=== PATIENT | female | born 1940 | race Caucasian/White ===

== ENCOUNTER 2022-10-04 14:11 | Outpatient (OUT) | payer MEDICARE, SELFPAY ==
--- NOTE | 2022-10-04 14:21 | MM_ITS ---
Patient: ANSLEY CAGE Exam Date: 10/04/2022 : 1940 Gender:F Ordering : DR ALE GEE Admission #: [id number] Family : Non-Staff Physician Order #: [id number] CLICK HERE TO VIEW EXAM RADIOLOGY REPORT PROCEDURE: MM TOMOSYNTHESIS SCREENING BI COMPARISON: MG MAMM SCREEN VEGA W CAD, 11/03/2020. MG MAMM SCREEN VEGA W CAD, 11/03/2019. MG MAMM SCREEN VEGA W CAD, 10/31/2018. MG MAMM VEGA SCRN W CAD DIG, 11/18/2012. INDICATIONS: Screening mammogram Z12.31 Calculator Name NCI Breast Cancer Risk Assessment Tool 5 Year Breast Cancer Risk 1.30% Lifetime Breast Cancer Risk 1.40% Personal Breast Cancer No Personal Ovarian Cancer No Treatments None Family Cancers Mother with ovarian cancer at age ~68. LOCATION: [facility] BREAST COMPOSITION: Scattered areas fibroglandular density. FINDINGS: DIAGNOSTIC CATEGORY 2--BENIGN FINDING: RIGHT BREAST: No significant suspicious finding. Scattered benign-appearing calcifications are present. No significant change has occurred. No significant change has occurred. No significant change has occurred. \No significant change has occurred. LEFT BREAST: No significant suspicious finding. No significant change has occurred. RECOMMENDATIONS: ROUTINE MAMMOGRAM AND CLINICAL EVALUATION IN 12 MONTHS. PLEASE NOTE: A NORMAL MAMMOGRAM DOES NOT EXCLUDE THE POSSIBILITY OF BREAST CANCER. A CLINICALLY SUSPICIOUS PALPABLE LUMP SHOULD BE BIOPSIED. Dictated by: Otoniel Thompson M.D. on 10/05/2022 at 12:04 Approved by: Otoniel Thompson M.D. on 10/05/2022 at 12:10
== END 2022-10-04 14:12 | disposition home or self-care (01) ==
LOC: MAMMO 14:15
PROVIDERS: Visit Provider Obstetrics & Gynecology
DX: Z12.31 Encounter for screening mammogram for malignant neoplasm of breast (principal); Z80.41 Family history of malignant neoplasm of ovary
CPT/HCPCS: 77063; 77067

== ENCOUNTER 2023-10-31 14:01 | Outpatient (OUT) | payer MEDICARE, SELFPAY ==
--- NOTE | 2023-10-31 14:04 | MM_ITS ---
Patient Name: ANSLEY CAGE MR#: [id number] : 1940 Exam Date: 10/31/2023 Ordering Doctor: DR ALE GEE RADIOLOGY REPORT PROCEDURE: MM SCREENING MAMMO BI COMPARISON: MM TOMOSYNTHESIS SCREENING BI, 10/04/2022. MG MAMM SCREEN VEGA W CAD, 11/03/2020. INDICATIONS: other screening mammogram Z12.31 Calculator Name NCI Breast Cancer Risk Assessment Tool 5 Year Breast Cancer Risk 1.10% Lifetime Breast Cancer Risk 1.10% Personal Breast Cancer No Personal Ovarian Cancer No Treatments None Family Cancers Mother with ovarian cancer at age ~68. LOCATION: [facility] BREAST COMPOSITION: There are scattered areas of fibroglandular density. FINDINGS: DIAGNOSTIC CATEGORY 2--BENIGN FINDING. NO CHANGE FROM COMPARISON. Scattered benign-appearing calcifications are present. Scattered benign-appearing lymph nodes are present. RIGHT BREAST: No significant suspicious finding. LEFT BREAST: No significant suspicious finding. RECOMMENDATIONS: ROUTINE MAMMOGRAM AND CLINICAL EVALUATION IN 12 MONTHS. PLEASE NOTE: A NORMAL MAMMOGRAM DOES NOT EXCLUDE THE POSSIBILITY OF BREAST CANCER. A CLINICALLY SUSPICIOUS PALPABLE LUMP SHOULD BE BIOPSIED. Dictated by: Urbano Joshi MD on 10/31/2023 at 14:41 Approved by: Urbano Joshi MD on 10/31/2023 at 14:43
== END 2023-10-31 14:02 | disposition home or self-care (01) ==
LOC: MAMMO 14:01
PROVIDERS: PCP Family Medicine; Visit Provider Obstetrics & Gynecology
DX: Z12.31 Encounter for screening mammogram for malignant neoplasm of breast (principal); Z80.41 Family history of malignant neoplasm of ovary
CPT/HCPCS: 77067

== ENCOUNTER 2024-11-03 11:20 | Outpatient (OUT) | payer MEDICARE, SELFPAY ==
--- OUTSIDE RECORDS SUMMARY | 2009-11-16 20:00 | XMS_ITS | Continuity of Care Document ---
Author Organization [facility] Address [address] [place] [address] Phone Care Team Providers Care Plumbing Installer Name Role Phone Tay Palumbo Unavailable Unavailable Procedures Procedure Date FLU VACC PRSV FREE INC ANTIG Admin influenza virus vac Advance Directives Directive Yes / No Effective Date File Name No Information Encounters Encounter Description Practice Location Reason(s) For Visit Diagnoses Date Provider Providers Copied on Encounter [facility], [address] [place], [place], [id number], tel:[phone] [facility] No Information [address], [place], [id number] , [place]. tel:[phone] Family History Family Member Type Diagnosis Age At Onset No Information Payers Payer name Insurance type Covered constitution party ID Authoriza tion(s) [employer] Medicare Advantage [id number] Social History Type Description Quantity Date Captured Comments Sex Female Smoking Status No Information Chief Complaint And Reason For Visit No Information Reason For Referral Reason For Referral No Information History Of Present Illness Encounter Date Complaint History Of Prese nt Illness No Information Functional Status Date Functional Assessmen t No Information Instructions Date Instruction Additional Infor mation No Information Assessments Type Assessment Date No Information Patient Care Teams Name Effective Dates (start - stop) Status Members No Information
--- OUTSIDE RECORDS SUMMARY | 2023-10-29 10:00 | XMS_ITS ---
Author Organization [facility] Address [address] [place] [address] Care Team Providers Care Obstetrical Tech Name Role Phone Dr. Jass Sainz Primary Care Provider [phone] Justine Adele Strange Unavailable [phone] REASON FOR VISIT fillings Encounters Encounter Location Date Provider Diagnosis [facility] [address] [place] [address] 10/29/2023 Adele Strange Plan Of Treatment Next Appt Details Provider Name:Marie Carey , 07/01/2025 01:00:00 PM, [address], [place], [address], Progress Notes * ANSLEY CAGEDOB:1940 ( 84 yo F)Acc No.[id number]:10/29/2023 Patient: ANSLEY ERVIN Provider: Marcela Strange :1940 A ge:83 Y S ex:Female Date:10/29/2023 Address:[address] [place], [place] [id number] Pcp:Dr. Jass Sainz Subjective: * Chief Complaints: * 1 . Fillings. * Medical History: Objective: * Vitals: Assessment: Plan: * Treatment: * Images: * Electronic signature of Adolph Strange DMD on 11/03/2024 at 11:24 AM EDT Sign off status: Pending * Provider: Marcela Strange Date: 0 10/29/2023 Generated for Jodi orlando/Alexander/Zuleymaitting on: 0 11/03/2024 11:24 AM EDT
--- OUTSIDE RECORDS SUMMARY | 2024-10-22 10:15 | XMS_ITS ---
Author Organization 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 Jass Sainz Primary Care Provider REASON FOR VISIT FILLING #30 Encounters Encounter Location Date Provider Diagnosis [facility] [address] [address] 10/22/2024 Jass Sainz Plan Of Treatment Next Appt Details Provider Name:Marie Carey , 07/01/2025 01:00:00 PM, [address], [place], [address], Progress Notes * NILESANSLEYDOB:1940 ( 84 yo F)Acc No.[id number]:10/22/2024 Patient: ANSLEY ERVIN Provider: Marcela Sainz DDS :1940 A ge:84 Y S ex:Female Date:10/22/2024 Address:[address] [place], [place] [id number] Subjective: * Chief Complaints: * 1 . FILLING #30. * Medical History: Objective: * Vitals: Assessment: Plan: * Treatment: * Images: * Electronic signature of Dr. Jass Sainz , DMD on 11/03/2024 at 11:24 AM EDT Sign off status: Pending * Provider: Marcela Sainz DDS Date: 0 10/22/2024 Generated for Jodi orlando/Alexander/Zuleymaitting on: 0 11/03/2024 11:24 AM EDT
--- OUTSIDE RECORDS SUMMARY | 2024-10-23 09:08 | XMS_ITS | Continuity of Care Document ---
Author Organization [facility] Address [address] [place] [address] Phone Care Team Providers Care Oscillograph Technician Name Role Phone Jerome Goldsmith DO Primary Care Provider Joseph Sharma MD Attending Provider Jerome Goldsmith DO Attending Provider [phone] Care Teams Patient Care Team Team Status: Active Member Role Status Dates Jerome Goldsmith DO Primary Care Provider Active Visit Care Team Team Status: Active Member Role Status Dates Jerome Goldsmith DO Primary Care Provider Active Sta rt: July 29, 2024 Joseph Sharma MD Attending Provider Active Sta rt: July 29, 2024 Visit Care Team Team Status: Inactive Member Role Status Dates Jerome Goldsmith DO Primary Care Provider Active Sta rt: July 29, 2024 End: July 29, 2024 Joseph Sharma MD Attending Provider Active Sta rt: July 29, 2024 End: July 29, 2024 Visit Care Team Team Status: Inactive Member Role Status Dates Jerome Goldsmith DO Primary Care Provider Active Sta rt: August 06, 2024 End: August 06, 2024 Joseph Sharma MD Attending Provider Active Sta rt: August 06, 2024 End: August 06, 2024 Visit Care Team Team Status: Active Member Role Status Dates Jerome Goldsmith DO Primary Care Provider Active Sta rt: August 26, 2024 Joseph Sharma MD Attending Provider Active Sta rt: August 26, 2024 Visit Care Team Team Status: Inactive Member Role Status Dates Jerome Goldsmith DO Primary Care Provider Active Sta rt: August 26, 2024 End: August 26, 2024 Joseph Sharma MD Attending Provider Active Sta rt: August 26, 2024 End: August 26, 2024 Visit Care Team Team Status: Inactive Member Role Status Kun Goldsmith DO Primary Care Provider Active Sta rt: September 03, 2024 End: September 03, 2024 Joseph Sharma MD Attending Provider Active Sta rt: September 03, 2024 End: September 03, 2024 Visit Care Team Team Status: Active Member Role Status Kun Goldsmith DO Primary Care Provider Active Sta rt: September 18, 2024 Joseph Sharma MD Attending Provider Active Sta rt: September 18, 2024 Visit Care Team Team Status: Inactive Member Role Status Kun Goldsmith DO Primary Care Provider Active Sta rt: September 18, 2024 End: September 18, 2024 Joseph Sharma MD Attending Provider Active Sta rt: September 18, 2024 End: September 18, 2024 Visit Care Team Team Status: Inactive Member Role Status Kun Goldsmith DO Primary Care Provider Active Sta rt: October 01, 2024 End: October 01, 2024 Joseph Sharma MD Attending Provider Active Sta rt: October 01, 2024 End: October 01, 2024 Visit Care Team Team Status: Inactive Member Role Status Kun Goldsmith DO Primary Care Provider Active Sta rt: October 06, 2024 End: October 06, 2024 Jerome Goldsmith DO Attending Provider Active Start: October 06, 2024 End: October 06, 2024 Visit Care Team Team Status: Inactive Member Role Status Kun Goldsmith DO Primary Care Provider Active Sta rt: October 09, 2024 End: October 09, 2024 Joseph Sharma MD Attending Provider Active Sta rt: October 09, 2024 End: October 09, 2024 Visit Care Team Team Status: Inactive Member Role Status Kun Goldsmith DO Primary Care Provider Active Sta rt: October 16, 2024 End: October 16, 2024 Joseph Sharma MD Attending Provider Active Sta rt: October 16, 2024 End: October 16, 2024 Visit Care Team Team Status: Inactive Member Role Status Kun Goldsmith DO Primary Care Provider Active Sta rt: October 20, 2024 End: October 20, 2024 Jerome Goldsmith DO Attending Provider Active Start: October 20, 2024 End: October 20, 2024 Patient Care Team Team Status: Inactive Member Role Status Dates Jerome Goldsmith DO Primary Care Provider Active Sta rt: October 23, 2024 End: October 23, 2024 Joseph Sharma MD Attending Provider Active Sta rt: October 23, 2024 End: October 23, 2024 Chief Complaint and Reason for Visit Chief Complaint Admit Date left L4-5 and L5-S1 transforaminal epidu ral July 29, 2024 1:02pm f/u after left L4,5 LTR August 06, 2024 1:20pm BILATERAL SACROILIAC JOINT INJ August 12:53pm FOLLOW UP AFTER VEGA SI September 03, 2024 1 :03pm VEGA LUMBAR FACET MBB L3,4,5 September 18, 2024 11:02am FOLLOW UP AFTER VEGA LUMBAR MBB October 012024 1:05pm e78.5 r73.9 October 06, 2024 8: 15am bilateral L3,4,5 lumbar MBB October 09, 2024 9:59am f/u after vega lumbar MBB October 16, 2024 4:08pm medicare wellness October 20, 2024 12:41pm Bilat lumbar facet RFA L3,L4,L5 Septembe r 2024 1:05pm Reason for Visit Admit Date Arthritis of lumbosacral spine July 1:20pm Lumbar radiculopathy August 06, 2024 1:2 0pm Other chronic pain August 06, 2024 1:20 pm Sacroiliitis August 06, 2024 1:20 pm Arthritis of lumbosacral spine August 1:03pm Lumbar radiculopathy September 03, 2024 1:0 3pm Other chronic pain September 03, 2024 1:03 pm Sacroiliitis September 03, 2024 1:03 pm Arthritis of lumbosacral spine October 012024 1:05pm Lumbar radiculopathy October 01, 2024 1 :05pm Other chronic pain October 01, 2024 1: 05pm Sacroiliitis October 01, 2024 1: 05pm Arthritis of lumbosacral spine October 16, 2024 4:08pm Lumbar radiculopathy October 16, 2024 4:08pm Other chronic pain October 16, 2024 4:08pm Sacroiliitis October 16, 2024 4:08pm HTN (hypertension) October 20, 2024 12:41pm Hyperglycemia October 20, 2024 12:41pm Hyperlipidemia October 20, 2024 12:41pm Medicare annual wellness visit, subseque nt October 20, 2024 12:41pm Post-menopausal October 20, 2024 12:41pm Screening mammogram for breast cancer Se pt2024 12:41pm Allergies, Adverse Reactions, Alerts Allergen Type Severity Reaction Last Updated Verified Status acetaminophen Allergy Unknown ITCHING October 20, 2024 1:15pm Yes Active amoxicillin Allergy Unknown diarrhea October 20, 2024 1:15pm Yes Active lisinopril Allergy Unknown Cough October 20, 2024 1:15pm Ye s Active Social History Smoking Status Status Start Date End Date Date of Observa tion Never smoked tobacco (finding) October 20, 2024 1:23pm Observation Status Observation Response Date of Response Legal Sex Female (finding) Sex Assigned At Female 1940 Family History Relationship Condition Age at Onset Recorded Date/T justina father Heart disease Unknown Unknown father Heart disease Unknown grandparent Unknown grandparent Unknown grandparent Unknown grandparent Unknown mother Unknown Malignant neoplasm Unknown mother Malignant neoplasm Unknown Problems Active Problems Medical Problem Onset Date Status Medicare annual wellness visit, subsequent Unkno wn Active Lumbar radiculopathy Unknown Active Screening mammogram for breast cancer Unknown Active Sacroiliitis Unknown Active Varicose vein of leg Unknown Active Wellness examination Unknown Active Hyperglycemia Unknown Active Hyperlipidemia Unknown Active Post-menopausal Unknown Active Other chronic pain Unknown Active Left lumbar radiculopathy Unknown Active Lumbar disc disease Unknown Active HTN (hypertension) Unknown Active Arthritis of lumbosacral spine Unknown A ctive Medications Medication Status Dose Units Route Directions Qty Days St art Date Stop Date End Date Instructions Adherence Levothyroxi ne 100 mcg tablet Discont inued 100 MCG PO Daily 90 Novemb er 2023 2:10pm July 01, 2024 11:13 am Ibuprofen 200 mg tablet Discont inued 200 MG PO Every 6 hours as needed for fever or pain 90 Decemb er 2023 12:57p m Decem nadeem 2023 6:03p m Ibuprofen 800 mg tablet Discont inued 800 MG PO Every 8 hours as needed for pain 90 Decemb er 2023 1:00am Janua ry 2024 2:50p m Ibuprofen 800 mg tablet Discont inued 800 MG PO Twice daily as needed for pain 90 Januar y 2024 2:48pm May 12, 2024 2:37p m rx verbally called into [facility] phone #[phone] Montelukast 10 mg tablet Discont inued 10 MG PO Daily at bedtime May 05, 2024 7:44am [facility] 2024 2:02p m Ibuprofen 800 mg tablet Discont inued 800 MG PO Twice daily as needed for pain May 12, 2024 2:36pm July 01, 2024 11:13 am rx verbally called into [facility] phone #[phone] Levothyroxi ne 100 mcg tablet Discont inued 100 MCG PO Daily July 01, 2024 11:11a m [facility] 2024 2:02p m Ibuprofen 800 mg tablet Discont inued 800 MG PO Twice daily as needed for pain July 01, 2024 11:11a m [facility] 2024 2:02p m Valsartan 80 mg tablet Discont inued MG June 22, 2022 12:00a m Aug[facility] t 2023 11:01 am Levothyroxi ne 100 mcg tablet Discont inued MCG June 22, 2022 12:00a m [facility] 2023 2:11p m Montelukast 10 mg tablet Discont inued MG June 22, 2022 12:00a m [facility] 2023 10:59 am Ibuprofen 600 mg tablet Discont inued MG June 22, 2022 12:00a m June 14, 2023 9:57a m Prednisone 20 mg tablet Discont inued 20 MG PO Twice daily 11 16June 22, 2022 12:00a m Aug[facility] t 2023 11:00 am Lidocaine 5 % adhesive patch,medic ated Discont inued 1 PATCH TOPICA L Daily as needed for pain June 22, 2022 12:00a m [facility] 2024 1:17p m leave on most painful area for up to 12 hrs Hydrocodone -Acetaminop hen 5-325 mg tablet Discont inued 1 TAB PO Q6H as needed for pain 10 June 22, 2022 June 14, 2023 9:57a m Cyclobenzap rine 5 mg tablet Discont inued 5 MG PO Three times daily as needed for muscle spasm June 22, 2022 12:00a m Aug[facility] t 2023 10:59 am Valsartan 80 mg tablet Discont inued 320 MG PO October 05, 2023 11:00a m [facility] 2024 1:18p m Triamcinolo ne Acetonide 0.1 % ointment Discont inued 1 APPLIC TOPICA L Twice daily September 14, 2023 12:00a m [facility] 2024 1:19p m FreeText[employer] application Externally Twice a day; Note: Source Status: Taking; Provider: Dr.Petti Pari BOYER Ibuprofen 800 mg tablet Discont inued 800 MG PO September 14, 2023 12:00a m Aug[facility] t 2023 11:00 am FreeTextSi tablet with food or milk as needed Orally Three times a day as needed; Note: Source Status: Taking; Refills: 3; Provider: Agus Sanchez Tramadol 50 mg tablet Discont inued 50 MG PO Four times daily September 14, 2023 12:00a m [facility] 2023 2:04p m FreeTextSi tablet as needed Orally Four times a day; Note: Source Status: Taking; Refills: 0; Qty: 120 Tablet; Provider: Agus Snachez Hydrochloro thiazide 25 mg tablet Active 25 MG PO Daily October 05, 2023 12:00a m Unknown Calcium Carbonate-V itamin D3 600 mg-62.5 mcg (2,500 unit) capsule Active CAP PO October 05, 2023 12:00a m Unknown Triamcinolo ne Acetonide 0.1 % ointment Active 1 APPLIC TOPICA L Twice daily as needed [facility] 2024 1:17pm FreeText[employer] application Externally Twice a day; Note: Source Status: Taking; Provider: Dr.Petti Pari BOYER Unknown Gabapentin 300 mg capsule Discont inued 300 MG PO Daily June 14, 2023 12:00a m Aug[facility] 2023 11:01 am Gabapentin 300 mg capsule Discont inued 300 MG PO Twice daily October 05, 2023 10:59a m [facility] 2024 1:19p m Gabapentin 300 mg capsule Active 300 MG PO Twice daily as needed 2024 1:16pm Unknown Ibuprofen 200 mg tablet Discont inued 200 MG PO Every 6 hours as needed 2023 12:00a m Dece 2023 1:03p m Montelukast 10 mg tablet Discont inued 10 MG PO Daily at bedtime 2023 10:59a m [facility] 20[facility] 11:00 am Montelukast 10 mg tablet Discont inued 10 MG PO Daily at bedtime 2023 11:00a m May 05, 2024 7:44a m Valsartan 320 mg tablet Active 320 MG PO Daily 2024 12:00a m Unknown Multivitami n (Multiple Vitamins) tablet Active 1 TAB PO Daily 2024 12:00a m Unknown Turmeric Root Extract 500 mg tablet Active 500 MG PO Daily 2024 12:00a m Unknown Cyanocobala min (Vitamin B-12) 1,000 mcg tablet Active 1000 MCG PO Daily 2024 12:00a m Unknown Ibuprofen 800 mg tablet Active 800 MG PO Twice daily as needed for pain 2024 2:00pm Unknown Levothyroxi ne 100 mcg tablet Active 100 MCG PO Daily 2024 2:00pm Unknown Montelukast 10 mg tablet Active 10 MG PO Daily at bedtime 2024 2:00pm Unknown Immunizations Immunization Event Date Not Given Reason Dose Number Liability Claims Manager Lot Number Vaccine Information Statement (VIS) Detail Administration Location COVID-19 mRNA-1273 (Moderna) March 19, 2020 COVID-19 mRNA-1273 (Moderna) April 16, 2020 COVID-19 mRNA-1273 (Moderna) December 25, 2020 COVID-19 (MODERNA) 12Y and older November 08, 2023 [facility] COVID-19 (PFIZER) 12Y and older November 16, 2022 COVID-19 (PFIZER) 12Y and older November 08, 2023 [id number] Fluzone TIV High-Dose 65YR+ November 08, 2015 Fluzone TIV High-Dose 65YR+ November 16, 2016 Fluzone TIV High-Dose 65YR+ November 09, 2017 Fluzone TIV High-Dose 65YR+ November 07, 2018 Fluzone QIV High-Dose 65YR+ November 05, 2019 Fluzone QIV High-Dose 65YR+ November 15, 2020 Influenza, trivalent November 08, 2023 [id number] Influenza vaccine, quadrivalent, adjuvanted November 23, 2021 Influenza vaccine, quadrivalent, adjuvanted November 16, 2022 Influenza vaccine, quadrivalent, adjuvanted November 08, 2023 [facility] Influenza, injectable, MDCK, pf November 23, 2017 influenza, unspecified formulation October 23, 2011 influenza, unspecified formulation November 08, 2015 influenza, unspecified formulation November 07, 2018 Pneumococcal Conjugate Vaccine, 13 valent November 19, 2014 Pneumococcal Polysacc. Vaccine, 23 valent November 20, 2015 RSV, bv, preFa and preFb, pf November 08, 2023 [id number] RSV, preF3, adj, pf November 08, 2023 [facility] Zoster Vaccine Recombinant, Adjuvanted October 16, 2017 Tetanus, Diphtheria, Pertussis (Tdap) July 02, 2024 Trivalent Influenza Vaccine November 16, 2016 Trivalent Influenza Vaccine November 09, 2017 Trivalent Influenza Vaccine November 05, 2019 Trivalent Influenza Vaccine November 23, 2021 Shingles (Zoster) October 16, 2017 Relevant Diagnostic Tests and/or Laboratory Data Laboratory Results Test Collection Date/Time Result Date/Time Result Interpretation Reference Range Result Comment Performing Site Corrected White Blood Count October 06, 2024 9:19am October 06, 2024 2:31pm 6.2 10*3/uL 3.8-11.6 [facility] [id number] [address] [place] [address] Uncorrect ed WBC Count October 06, 2024 9:19am October 06, 2024 2:31pm 6.2 10*3/uL 3.8-11.6 [facility] [id number] [address] [facility] [address] Red Blood Count October 06, 2024 9:19am October 06, 2024 2:31pm 3.67 10*6/uL 3.60-5.00 [facility] [id number] [address] [facility] [address] Hemoglobi n October 06, 2024 9:19am October 06, 2024 2:31pm 11.6 g/dL Below low normal 11.8-15.4 [facility] [id number] [address] [facility] [address] Hematocri t October 06, 2024 9:19am October 06, 2024 2:31pm 34.6 % 34.0-46.4 [facility] [id number] [address] [facility] [address] Mean Corpuscul ar Volume October 06, 2024 9:19am October 06, 2024 2:31pm 94.1 fL 80-100 [facility] [id number] [address] [facility] [address] Mean Corpuscul ar Hemoglobi n October 06, 2024 9:19am October 06, 2024 2:31pm 31.5 pg 24.7-34.3 [facility] [id number] [address] [facility] [address] Mean Corpuscul ar Hemoglobi n Concent October 06, 2024 9:19am October 06, 2024 2:31pm 33.5 g/dL 32.0-35.0 [facility] [id number] [address] [facility] [address] Red Cell Distribut ion Width October 06, 2024 9:19am October 06, 2024 2:31pm 14.1 % 11.9-15.3 [facility] [id number] [address] [facility] [address] Platelet Count October 06, 2024 9:19October 06, 2024 2:31pm 434 10*3/uL 150-450 [facility] [id number] [address] [facility] [address] Mean Platelet Volume October 06, 2024 9:19am October 06, 2024 2:31pm 7.6 fL 6.3-10.7 [facility] [id number] [address] [facility] [address] Neutrophi ls (%) (Auto) October 06, 2024 9:19am October 06, 2024 2:31pm 55.0 % . [facility] [id number] [address] [facility] [address] Lymphocyt es (%) (Auto) October 06, 2024 9:19am October 06, 2024 2:31pm 32.1 % . [facility] [id number] [address] [facility] [address] Monocytes (%) (Auto) October 06, 2024 9:19am October 06, 2024 2:31pm 8.5 % . [facility] [id number] [address] [place] [address]170 Eosinophi ls (%) (Auto) October 06, 2024 9:19am October 06, 2024 2:31pm 3.3 % . [facility] [id number] [address] [place] [address]170 Basophils (%) (Auto) October 06, 2024 9:19am October 06, 2024 2:31pm 1.1 % . [facility] [id number] [address] [place] 1946170 Nucleated RBC Relative Count (auto) October 06, 2024 9:19am October 06, 2024 2:31pm 0.1 /100{WB C} 0-0.5 [facility] [id number] [address] [place] [address]170 Neutrophi ls # (Auto) October 06, 2024 9:19am October 06, 2024 2:31pm 3.4 10*3/uL 1.8-7.7 [facility] [id number] [address] [place] 1946170 Lymphocyt es # (Auto) October 06, 2024 9:19am October 06, 2024 2:31pm 2.0 10*3/uL 1.00-4.8 [facility] [id number] [address] [place] [address]170 Monocytes # (Auto) October 06, 2024 9:19am October 06, 2024 2:31pm 0.5 10*3/uL 0.0-0.8 [facility] [id number] [address] [place] [address]170 Eosinophi ls # (Auto) October 06, 2024 9:19am October 06, 2024 2:31pm 0.2 10*3/uL 0.0-0.45 [facility] [id number] [address] [place] [address]170 Basophils # (Auto) October 06, 2024 9:19am October 06, 2024 2:31pm 0.1 10*3/uL 0.0-0.2 [facility] [id number] [address] [place], [place] [address] Glucose Level October 06, 2024 9:19am October 06, 2024 2:43pm 98 mg/dL 70-100 ADA recommended reference rangeRandom Glucose Reference Range is dependent on time and content of last meal. Glucose of more than 200 mg/dL in a nonstressed, ambulatory subject supports the diagnosis of Diabetes Mellitus. [facility] [id number] [address] [place] [address]170 Blood Urea Nitrogen October 06, 2024 9:19am October 06, 2024 2:43pm 16 mg/dL 09-05 [facility] [id number] [address] [place], [place] [address] Creatinin e October 06, 2024 9:19am October 06, 2024 2:43pm 0.73 mg/dL 0.60-1.20 [facility] [id number] [address] [place], [place] [address] Estimated GFR (CKD-EPI) October 06, 2024 9:19am October 06, 2024 2:43pm > 60.0 mL/Min [facility] [id number] [address] [place], [place] [address] Sodium Level October 06, 2024 9:19am October 06, 2024 2:43pm 139 mmol/L 136-145 [facility] [id number] [address] [place], [place] [address] Potassium Level October 06, 2024 9:19am October 06, 2024 2:43pm 4.0 mmol/L 3.5-5.1 [facility] [id number] [address] [place] [address] Chloride Level October 06, 2024 9:19am October 06, 2024 2:43pm 101 mmol/L 98-107 [facility] [id number] [address] [facility] [address] Carbon Dioxide Level October 06, 2024 9:19am October 06, 2024 2:43pm 30.9 mmol/L 21.0-31.0 [facility] [id number] [address] [facility] [address] Anion Gap October 06, 2024 9:19am October 06, 2024 2:43pm 11.1 mEq/L 6.0-15.0 [facility] [id number] [address] [facility] [address] Calcium Level October 06, 2024 9:19am October 06, 2024 2:43pm 8.9 mg/dL 8.6-10.3 [facility] [id number] [address] [facility] [address] Total Protein October 06, 2024 9:19am October 06, 2024 2:43pm 6.7 g/dL 6.4-8.9 [facility] [id number] [address] [facility] [address] Albumin October 06, 2024 9:19am October 06, 2024 2:43pm 4.0 g/dL 3.5-5.7 [facility] [id number] [address] [facility] [address] Globulin October 06, 2024 9:19am October 06, 2024 2:43pm 2.7 g/dL [facility] [id number] [address] [facility] [address] Albumin/G lobulin Ratio October 06, 2024 9:19am October 06, 2024 2:43pm 1.5 [facility] [id number] [address] [facility] [address] Total Bilirubin October 06, 2024 9:19am October 06, 2024 2:43pm 0.5 mg/dL 0.3-1.0 [facility] [id number] [address] [facility] [address] Aspartate Amino Transf (AST/SGOT ) October 06, 2024 9:19am October 06, 2024 2:43pm 14 U/L 13-39 [facility] [id number] [address] [facility] [address] Alanine Aminotran sferase (ALT/SGPT ) October 06, 2024 9:19am October 06, 2024 2:43pm 12 U/L 7-52 [facility] [id number] [address] [facility] [address] Alkaline Phosphata se October 06, 2024 9:19am October 06, 2024 2:43pm 67 U/L 34-104 [facility] [id number] [address] [facility] [address] Cholester ol Level October 06, 2024 9:19am October 06, 2024 2:43pm 214 mg/dL Above high normal 140-200 Chol less than 200 mg/dl low riskChol 201-239 mg/dl borderline riskChol 240 mg/dl and greater high risk [facility] [id number] [address] [facility] [address] HDL Cholester ol October 06, 2024 9:19am October 06, 2024 2:43pm 71 mg/dL 23-92 HDL CHOL ATP-III CLASSIFICATI ON Cardiovascul ar RiskHDL > or equal to 60 mg/dL LOWHDL < 40 mg/dL HIGH [facility] [id number] [address] [facility] [address] Triglycer ides Level October 06, 2024 9:19am October 06, 2024 2:43pm 105 mg/dL 0-149 TRIG ATP III CLASSIFICATI ONTRIG less than 150 mg/dL NormalTRIG 150-199 mg/dL Borderline highTRIG 200-500 mg/dL High TRIG greater than 500 mg/dL Very highStandard traceable to the Center for Disease Conrtrol and Prevention (CDC) test method. [facility] [id number] [address] [facility] [address] LDL Cholester ol, Calculate d October 06, 2024 9:19am October 06, 2024 2:43pm 122 mg/dL Above high normal 0-100 LDL ATP III CLASSIFICATI ONLDL less than 100 mg/dL OptimalLDL 100-129 mg/dL Near or above optimalLDL 130-159 mg/dL Borderline highLDL 160-189 mg/dL HighLDL greater than 189 mg/dL Very high [facility] [id number] [address] [facility] [address] VLDL Cholester ol October 06, 2024 9:19am October 06, 2024 2:43pm 21 mg/dL [facility] [id number] [address] [place], [place] [address] Cholester ol/HDL Ratio October 06, 2024 9:19am October 06, 2024 2:43pm 3.0 <5.0 [facility] [id number] [address] [place], [place] [address] Thyroid Stimulati ng Hormone 3rd Gen October 06, 2024 9:19am October 06, 2024 2:58pm 0.56 u[iU]/m L 0.45-5.33 [facility] [id number] [address] [place], [place] [address] Pharmacy Creatinin e Clearance (Chem October 06, 2024 9:19am October 06, 2024 2:43pm N/A [facility] [id number] [address] [place], [place] [address] Hemoglobi n A1c October 06, 2024 9:19am October 07, 2024 12:02pm 6.1 % Above high normal 4.3-5.6 Increased risk for diabetes: 5.7 - 6.4diabetes: >6.4glycemic control for adults with diabetes: <7.0 [facility] [id number] [address] [place] [address] Estimated Average Glucose October 06, 2024 9:19am October 07, 2024 12:02pm 128 mg/dL [facility] [id number] [address] [place], [place] [address] Vital Signs Vital Reading Result Reference Range Collection Date/Time Height 66 [in_i] August 06, 2024 1:27pm Heart Rate 78 /min 60-100 August 06, 2024 1:27pm Oxygen saturation by Pulse oximetry 97 % 95-100 August 06, 2024 1:27 pm BP Systolic 120 mm[Hg] 100-140 August 06, 2024 1:27pm BP Diastolic 76 mm[Hg] 60-100 August 06, 2024 1:27pm Heart Rate 77 /min 60-100 September 03, 2024 1:28pm Oxygen saturation by Pulse oximetry 97 % 95-100 September 03, 2024 1:28 pm BP Systolic 112 mm[Hg] 100-140 September 03, 2024 1:28pm BP Diastolic 70 mm[Hg] 60-100 September 03, 2024 1:28pm Heart Rate 69 /min 60-100 October 01 1:12pm Oxygen saturation by Pulse oximetry 97 % 95-100 October 01, 2024 1: 12pm BP Systolic 122 mm[Hg] 100-140 October 01 1:12pm BP Diastolic 80 mm[Hg] 60-100 October 01 1:12pm Heart Rate 76 /min 60-100 October 16, 2024 4:15pm Oxygen saturation by Pulse oximetry 98 % 95-100 October 16, 2024 4:15pm BP Systolic 148 mm[Hg] 100-140 October 16, 2024 4:15pm BP Diastolic 85 mm[Hg] 60-100 October 16, 2024 4:15pm Height 66 [in_i] October 20, 2024 1:33pm Weight 81.19 kg October 20, 2024 1:33pm Heart Rate 71 /min 60-100 October 20, 2024 1:33pm Respiratory rate 16 /min 12-24 October 202024 1:33pm Oxygen saturation by Pulse oximetry 98 % 95-100 October 20, 2024 1:33pm BP Systolic 90 mm[Hg] 100-140 October 20, 2024 1:33pm BP Diastolic 60 mm[Hg] 60-100 October 20, 2024 1:33pm BMI (Body Mass Index) 28.8 kg/m2 2024 1:33pm Advance Directives Advance Directive Response Recorded Date/ Time Advance Directives No October 9:23am Insurance Providers Guarantor Lorri Tyler Address [address] [place] [phone] Contact Info. Home Phone: Payer Policy Id Subscriber's Name Subscriber Id Effectiv e Date Expiration Date [employer] [facility] [id number] Lorri Tyler [id number] Encounters Encounter Location(s) Arrival/Admit Date Discharge/Depart Date Provider(s) Non-patient / Non-visit -[facility] July 29, 2024 1:00pm Joseph Sharma MD Departed Physician/Prov ider Office Visit -[facility] July 29, 2024 1:02pm July 29, 2024 2:57pm Joseph Sharma MD Departed Physician/Prov ider Office Visit -[facility] August 06, 2024 1:20pm August 06, 2024 1:53pm Joseph Sharma MD Non-patient / Non-visit -[facility] [place] August 26, 2024 12:30pm Joseph Sharma MD Departed Physician/Prov ider Office Visit -[facility] August 26, 2024 12:53pm August 26, 2024 3:33pm Joseph Sharma MD Departed Physician/Prov ider Office Visit -[facility] September 03, 2024 1:03pm September 03, 2024 1:59pm Joseph Sharma MD Non-patient / Non-visit -[facility] September 18, 2024 11:00am Joseph Sharma MD Departed Physician/Prov ider Office Visit -[facility] September 18, 2024 11:02am September 18, 2024 1:05pm Joseph Sharma MD Departed Physician/Prov ider Office Visit -[facility] October 01, 2024 1:05pm October 01, 2024 1:34pm Joseph Sharma MD Departed Clinical -[facility] [place] October 06, 2024 8:15am October 06, 2024 8:16am Laura Keyes DO Departed Physician/Prov ider Office Visit -[facility] October 09, 2024 9:59am October 09, 2024 10:01am Joseph Sharma MD Departed Physician/Prov ider Office Visit -[facility] October 16, 2024 4:08pm October 16, 2024 4:23pm Joseph Sharma MD Departed Physician/Prov ider Office Visit -[facility] October 20, 2024 12:41pm October 20, 2024 2:11pm Laura Keyes DO Departed Physician/Prov ider Office Visit -[facility] October 23, 2024 1:05pm October 23, 2024 1:07pm Joseph Sharma MD Recent Diagnosis Onset Date Admit Date Arthritis of lumbosacral spine Unknown J 2024 1:20pm Lumbar radiculopathy Unknown August 06, 2024 1:20pm Other chronic pain Unknown August 06 1:20pm Sacroiliitis Unknown August 06, 2024 1:20pm Arthritis of lumbosacral spine Unknown J amber 2024 1:03pm Lumbar radiculopathy Unknown September 03, 2024 1:03pm Other chronic pain Unknown September 03 1:03pm Sacroiliitis Unknown September 03, 2024 1:03pm Arthritis of lumbosacral spine Unknown A ug2024 1:05pm Lumbar radiculopathy Unknown September 1:05pm Other chronic pain Unknown October 01, 2024 1:05pm Sacroiliitis Unknown October 01 1:05pm Arthritis of lumbosacral spine Unknown S eptember 2024 4:08pm Lumbar radiculopathy Unknown October 162024 4:08pm Other chronic pain Unknown October 4:08pm Sacroiliitis Unknown October 16, 2 025 4:08pm HTN (hypertension) Unknown October 12:41pm Hyperglycemia Unknown October 20, 2 025 12:41pm Hyperlipidemia Unknown October 20, 2 025 12:41pm Medicare annual wellness visit, subsequent Unkno wn October 20, 2024 12:41pm Post-menopausal Unknown October 20, 2 025 12:41pm Screening mammogram for breast cancer Unknown October 20, 2024 12:41pm Assessments Diagnosis Onset Date Resolution Status Admit Date Arthritis of lumbosacral spine acute August 06, 2024 1:20pm Lumbar radiculopathy acute August 06, 2024 1:20pm Other chronic pain acute July 142024 1:20pm Sacroiliitis acute August 06, 2 025 1:20pm Arthritis of lumbosacral spine acute September 03, 2024 1:03pm Lumbar radiculopathy acute September 03, 2024 1:03pm Other chronic pain acute August 132024 1:03pm Sacroiliitis acute September 03, 2 025 1:03pm Arthritis of lumbosacral spine acute October 01, 2024 1:05pm Lumbar radiculopathy acute Aug2024 1:05pm Other chronic pain acute October 01, 2024 1:05pm Sacroiliitis acute October 01, 2024 1:05pm Arthritis of lumbosacral spine acute October 16, 2024 4:08pm Lumbar radiculopathy acute Oct ember 2024 4:08pm Other chronic pain acute 2024 4:08pm Sacroiliitis acute October 4:08pm HTN (hypertension) acute 2024 12:41pm Hyperglycemia acute October 202024 12:41pm Hyperlipidemia acute October 20, 2024 12:41pm Medicare annual wellness vis it, subsequent acute October 20 025 12:41pm Post-menopausal acute October 20, 2024 12:41pm Screening mammogram for melvi st cancer acute October 20 025 12:41pm Plan of Treatment Author Kathrine Menjivar [facility] Authored August 06, 2024 1:53 pm If her low back pain persist s, we can consider proceeding with a lumbar facet MBB followed by a RFA if applicable under fluoroscopic guidance. 84 year old female here for follow up status post left L4-5 and L5-S1 transforaminal epidural steroid injection under fluoroscopic guidance. Patient reports 50% pain relief as well as improved walking, standing and daily functions following the procedure. She continues to complain of residual low back and tailbone pain with intermittent radiation down the left lower extremity. Clinically, her residual low back pain is consistent with sacroiliitis and lumbar spondylosis. Anatomy of spine discussed in detail with patient in regards to patients condition. Patient is a candidate for a bilateral sacroiliac joint injection under fluoroscopic guidance. Risks and benefits of procedure explained to patient; patient verbalizes understanding. Patient reports 50% pain relief to the left lower extremity following procedure Continue with current treatment plan Author Natali Borges [facility] Authored September 03, 2024 1:48 pm Patient reports 70-80% pain relief to the area treated as well as improved walking, standing and daily functions following the procedure. 84 year old female here for follow up status post bilateral sacroiliac joint injection under fluoroscopic guidance. Patient reports 70-80% pain relief to the area treated as well as improved walking, standing and daily functions following the procedure. She continues to complain of residual low back pain. She also complains of intermittent radiation down the left lower extremity to the ankle. She denies any procedure related complications. Anatomy of spine as well as other treatment options were discussed in detail with the patient in regards to patients condition. I recommend we proceed with a bilateral lumbar facet medial branch nerve block under fluoroscopic guidance. Risks and benefits of procedure explained to patient; patient verbalizes understanding. Stable. She feels leg pain is infrequent. Follow up after procedure. Author Laura Saldañaalex [facility] Authored October 20, 2024 2:15pm Personalized health advice w as given to the beneficiary to health education of preventative counseling services or programs aimed at reducing identified risk factors and improving self-management or community-based lifestyle interventions to reduce health risks and promote self-management and wellness, including physical activity and nutrition. A written plan for screenings was discussed, flu vaccination, routine lab studies, eye exams, as well as risk factors for other medical problems. All preventative health recommendations to include immunizations have been reviewed. She is following with pain management, web ui developer and eye doctor routinely. I have recommended vascular screening through [facility] Community Outreach program and information has been provided if she is interested. Annual skin assessment is recommended. She has declined further bone density testing. She is following with Dr. Salinas, MATERIAL EXPEDITER, and did have pelvic exam 09/2024 and is scheduled for mammogram at [facility]. Due to age no longer needs any further colorectal cancer screening. Encouraged to alert me if has any changes in her stool or notices any blood in stool. Encouraged to maintain a healthy weight and remain active. Vital signs are stable. Wellness lab reviewed in great detail. A1C is stable at 6.1 and renal function is good. Encouraged to continue with dietary modification and remain as active a possible. Maintain a healthy weight. I will continue to monitor lab as I have been Current lab results have been reviewed in great detail and her lipid levels have improved from last year. She is controlling her levels primarily with dietary modification and exercise. Blood chemistries are stable to include liver enzymes, electrolytes and blood counts are also stable. I have encouraged her to continue with the dietary modification and continue to be active. I will monitor lab as I have been. Blood pressure is good in office today. She does follow with a web ui developer in [place] and will be leaving for [place] in the next 6-8 weeks pending the outcome of the lumbar spine ablation that is being planned by Dr. Sharma for this coming week. Denies chest pain, increased SOB or excessive edema. Take medications as prescribed. Thyroid levels are within normal limits and no changes warranted with the current medication doses. Monthly SBE encouraged and report abnormal findings. She is following with Dr. Salinas, MATERIAL EXPEDITER, and does have a mammogram ordered by him. She will have this done in the next couple of months. Last bone density testing was done in 2020 and at that time it did reveal 2 areas of osteopenia. She is declining any further screenings. Encouraged to take the calcium with vitamin D as ordered. Remain active and take caution with ambulation. She does use a cane for assistance with her mobility and balance. I did provide her a note to be given to the [employer] [place] to have her mailbox moved closer to her residence due to her impaired mobility. Copy has been scanned into her EMR Author Natali [facility] Authored October 01, 2024 1: 26pm 84 year old female here for follow up status post lumbar facet medial branch nerve block bilaterally at the L3 and L4 levels, as well as L5 dorsal ramus under fluoroscopic guidance. Patient reports 70-80% pain relief as well as improved walking, standing and daily functions for 5-6 hours following the procedure. She voices continued complaints of low back pain today as expected. She feels her pain is worse in the morning when getting out of bed. Anatomy of spine as well as other treatment options were discussed in detail with the patient in regards to patients condition. Patient is a candidate to proceed with a confirmatory bilateral lumbar facet medial branch nerve block under fluoroscopic guidance. Risks and benefits of procedure explained to patient; patient verbalizes understanding. Patient reports 70-80% pain relief to the area treated as well as improved walking, standing and daily functions following the procedure. Stable. She feels leg pain is infrequent. Follow up after procedure. Author Kathrine Menjivar [facility] Authored October 16, 2024 4:21pm 84 y/o female here for follo w up status post lumbar facet medial branch nerve block bilaterally at the L3, L4, and L5 level under fluoroscopic guidance. Patient reports 90-100% overall pain relief as well as increased function in standing, walking and daily activities for 5-6 hours following the procedure. She voices complaints of low back pain today, as expected. Anatomy of spine discussed in detail with patient in regards to patients condition. Patient is a candidate for a bilateral lumbar facet RFA under fluoroscopic guidance. Risks and benefits of procedure explained to patient; patient verbalizes understanding. Stable. Patient denies radicular pain today Stable. Patient feels sacral pain is minimal today Continue with current treatment plan Future Tests Future scheduled test information is unavailable Pending Tests Test Name Ordered Date Scheduled Date Comprehensive Metabolic Panel October 20 2:10pm 1 Years Future Visits Future appointment information is unavailable Referrals to Other Providers Referral information is unavailable Future Procedures Procedure Name Ordered Date Scheduled Date A1C with Estimated Average Glu October 20 2:10pm 1 Years Complete Blood Count Auto Diff October 20 2:10pm 1 Years Lipid Panel October 20, 2024 2:10pm 1 Yea rs MicroAlb Creat Ratio,U October 20, 2024 2:10p m 1 Years Thyroid Stimulating Hormone October 20, 2024 2:10pm 1 Years Future Medications Future medication information is unavailable Patient Instructions Patient instructions are unavailable
--- OUTSIDE RECORDS SUMMARY | 2024-11-03 11:24 | XMS_ITS | Patient Health Record ---
Author Organization [facility] Address [address] [place] [address] Care Team Providers Care Film Numberer Name Role Phone Dr. Jass Sainz Primary Care Provider Marie Carey Unavailable [phone] Adele Strange Unavailable [phone] Reason For Referral No Information Encounters Encounter Location Date Provider Diagnosis [facility] [address] [place] [address] 07/02/2024 Marie Carey Acute gingivitis, plaque induced K05.00 ; Dental caries on pit and fissure surface penetrating into dentin K02.52 ; Other dental procedure status Z98.818 and Encounter for dental examination and cleaning with abnormal findings Z01.21 [facility] [address] [place] [address] 07/08/2024 Adele Strange Encounter for dental examination and cleaning with abnormal findings Z01.21 and Dental caries on pit and fissure surface penetrating into dentin K02.52 [facility] [address] [place] [address] 11/13/2023 Jass Sainz Dental caries on pit and fissure surface penetrating into dentin K02.52 and Encounter for dental examination and cleaning with abnormal findings Z01.21 Assessments Encounter Date Diagnosis (ICD Code) Assessment Notes Treatment Notes Treatment Clinical Notes Section Notes 11/13/2023 Dental caries on pit and fissure surface penetrating into dentin (ICD-10 - K02.52) 07/02/2024 Acute gingivitis, plaque induced (ICD-10 - K05.00) 07/08/2024 Encounter for dental examination and cleaning with abnormal findings (ICD-10 - Z01.21) 07/08/2024 Dental caries on pit and fissure surface penetrating into dentin (ICD-10 - K02.52) 11/13/2023 Encounter for dental examination and cleaning with abnormal findings (ICD-10 - Z01.21) 07/02/2024 Dental caries on pit and fissure surface penetrating into dentin (ICD-10 - K02.52) 07/02/2024 Other dental procedure status (ICD-10 - Z98.818) 07/02/2024 Encounter for dental examination and cleaning with abnormal findings (ICD-10 - Z01.21) Plan Of Treatment Next Appt Details Provider Name:Marie Carey , 07/01/2025 01:00:00 PM, [address], [place], [address],
--- OUTSIDE RECORDS SUMMARY | 2024-11-03 11:24 | XMS_ITS | Clinical Summary ---
Author Organization [facility] Address [address] [place], [place] [id number] Care Team Providers Care Acetylene Torch Solderer Name Role Phone Unavailable Primary Care Provider Unavailabl e Allergies Active Allergy Reactions Criticality Noted Date Comments Lisinopril Cough 11/03/2013 Seasonal Allergies Other: See Comments 11/04/19 14 Medications Hydrochlorothiaz juliana 12.5 mg capsule 09/24/2013 Active levothyroxine (SYNTHROID) 175 mcg tablet 08/19/2013 Active montelukast (SINGULAIR) 10 mg tablet 10/16/2013 Active oxybutynin (DITROPAN) 5 mg tablet 09/24/2013 Active valsartan (DIOVAN) 160 mg tablet 09/24/2013 Active ACETAMINOPHEN (TYLENOL EXTRA STRENGTH ORAL) Take by mouth twice daily. Active multivitamin tablet Take 1 tablet by mouth once daily. Active Active Problems Problem Noted Date Diagnosed Date Neutropenia 11/03/2013 Social History Tobacco Use Types Packs/Day Years Used Date Smoking Tobacco: Never Alcohol Use Standard Drinks/Week Comments Not Asked 0 (1 standard drink = 0.6 oz pur e alcohol) Comments Unknown Sex and Gender Information Value Date Recorded Sex Assigned at Not on file Legal Sex Female 1:53 PM EDT Gender Identity Not on file Sexual Orientation Not on file Last Filed Vital Signs Vital Sign Reading Time Taken Comments Blood Pressure 120/67 06/22/2014 2:42 PM EDT Pulse 78 06/22/2014 2:42 PM EDT Temperature 36.7 C (98.1 F) 06/22/2014 2:42 PM EDT Respiratory Rate - - Oxygen Saturation - - Inhaled Oxygen Concentration - - Weight 91 kg (200 lb 9.6 oz) 06/22/2014 2:42 PM EDT Height 165.1 cm (5' 5 ) 06/22/2014 2:42 PM EDT Body Mass Index 33.38 06/22/2014 2:42 PM EDT Plan of Treatment Health Maintenance Due Date Last Done Comments Anxiety Screening 1958 Depression Screening 1958 DTaP,Tdap,Td Vaccine (1 - Tdap) 1957 Pneumococcal Vaccine: 50+ (1 of 1 - PCV) 1988 Shingrix Vaccine (1 of 2) 1988 Bone Density Screening 07/23/2003 RSV Vaccine (1 - 1-dose 75+ series) 2013 Diabetes Screening 11/03/2016 11/03/2013 Advance Directive Discussion 02/13/2024 Influenza Vaccine (#1) 2024 Procedures Procedure Name Priority Date/Time Associated Diagnosis Comments COMPREHENSIVE METABOLIC PANEL Routine 11/03/2013 4:11 PM EDT Neutropenia (HCC) from Last 3 Months or Most Recently Relevant to Health Maintenance Results * COMP METABOLIC PANEL (11/03/2013 4:11 PM EDT) Protein, Total 7.0 6.0 - 8.4 g/dL [facility] Albumin 4.1 3.5 - 5.0 g/dL [facility] Calcium 9.5 8.5 - 10.5 mg/dL [facility] Bilirubin, Total 0.2 0.0 - 1.5 mg/dL [facility] Alkaline Phosphatase 61 40 - 150 U/L [facility] AST 16 7 - 40 U/L [facility] Glucose 98 65 - 100 mg/dL [facility] BUN 19 8 - 25 mg/dL [facility] Creatinine 0.80 0.70 - 1.40 mg/dL [facility] Sodium 139 132 - 148 mmol/L [facility] Potassium 3.6 3.5 - 5.0 mmol/L [facility] Chloride 102 98 - 110 mmol/L [facility] CO2 28 23 - 32 mmol/L [facility] Anion Gap 9 0 - 15 mmol/L [facility] ALT 13 0 - 45 U/L [facility] eGFR- >60 [facility] eGFR-All Other Races >60 . [facility] Comment: eGFR (Estimated GFR) Units of measure: mL/min/1.73 meters squared eGFR is derived from the reexpressed MDRD Study equation using the following parameters: serum creatinine, age, gender and race. The creatinine assay has been calibrated to be traceable to IDMS. An eGFR <60 mL/min/1.73m2 for >3 months is consistent with chronic kidney disease. Refer to KDOQI guidelines for clinical interpretation. Blood specimen (specimen) BLOOD SPECIMEN / Unknown 11/03/2013 4:11 PM EDT 11/03/2013 4:16 PM EDT us Kareem Lincoln DO LABORATORY Final Res ult [facility] [address] [place] [address] from Last 3 Months or Most Recently Relevant to Health Maintenance Insurance [employer] MEDICARE
--- OUTSIDE RECORDS SUMMARY | 2024-11-03 11:25 | XMS_ITS | Encounter Summary ---
Author Organization [facility] Address [address] [facility] [place] [address] Care Team Providers Care Bundling Machine Operator Name Role Phone Jerome Goldsmith DO Primary Care Provider Encounter Details Date Type Department Care Team ([facility] Contact Info) Description 09/28/2022 Abstract ALBA Benson [facility] [address] [facility] [address] [place] [address] Sabas Salinas MD [address] [facility] [address] [place] [address] Social History Tobacco Use Types Packs/Day Years Used Date Smoking Tobacco: Never Smokeless Tobacco: Never Alcohol Use Standard Drinks/Week Comments Yes 2 (1 standard drink = 0.6 oz pur e alcohol) Comments No Sex and Gender Information Value Date Recorded Sex Assigned at Not on file Legal Sex Female 6:46 PM EDT Gender Identity Not on file Sexual Orientation Not on file documented as of this encounter Plan of Treatment Upcoming Encounters Date Type Department Care Team ([facility] Contact Info) Description 09/30/2026 11:15 AM EDT Office Visit ALBA Benson [facility] [address] [facility] [address] [place] [address] Sabas Salinas MD [address] [facility] [address] [place] [address] documented as of this encounter Visit Diagnoses Not on filedocumented in this encounter Care Teams Bundling Machine Operator Relationship Specialty Start Date End Date Jerome Goldsmith DO PCP - General 09/28/22 documented as of this encounter
--- OUTSIDE RECORDS SUMMARY | 2024-11-03 11:25 | XMS_ITS | Encounter Summary ---
Author Organization [facility] Address [address] [place] [address] Care Team Providers Care Xray Tech Name Role Phone Jerome Goldsmith Primary Care Provider [phone] Encounter Details Date Type Department Care Team (Late Contact Info) Description 10/31/2023 Clinisync Result Encounter [facility] External Department Unsolicited Ale Gee MD [address] [facility] [address] [place] [address] Social History Tobacco Use Types Packs/Day Years [...] Upcoming Encounters Date Type Department Care Team (Late Contact Info) Description 09/30/2026 11:15 AM EDT Office Visit ALBA EASON [address] [facility] [address] [place] [address] Ale Gee MD [address] [facility] [address] [place] [address] documented as of this encounter Procedures Procedure Name Priority Date/Time Associated Diagnosis Comments BI MAMMOGRAM SCREENING BILATERAL 10/31/2023 2:43 PM EDT documented in this encounter Results * Bilateral screening mammogram (10/31/2023 2:43 PM EDT) Anatomical Region Laterality Modality Breast Bilateral Mammography 10/31/2023 2:43 PM EDT Narrative 10/31/2023 2:44 PM EDT The [address] [address] Mammography Report Signed Patient: LORRI TYLER MR#: [id number] : 1940 Acct:[id number] Age/Sex: 83 / F ADM Date: 10/31/23 Loc: MAMMO Attending Dr: ALE GEE Ordering Physician: ALE GEE Results: Date of Service: 10/31/23 Follow Up: Procedure(s): MM screening mammo BI Accession Number(s): [id number] cc: Jerome Goldsmith D.O.; ALE GEE Patient Name: LORRI TYLER MR#: [id number] : 1940 Exam Date: 10/31/2023 Ordering Doctor: DR ALE GEE RADIOLOGY REPORT PROCEDURE: MM SCREENING MAMMO BI COMPARISON: MM TOMOSYNTHESIS SCREENING BI, 10/04/2022. MG MAMM SCREEN VEGA W CAD, 11/03/2020. INDICATIONS: other screening mammogram Z12.31 Calculator Name NCI Breast Cancer Risk Assessment Tool 5 Year Breast Cancer Risk 1.10% Lifetime Breast Cancer Risk 1.10% Personal Breast Cancer No Personal Ovarian Cancer No Treatments None Family Cancers Mother with ovarian cancer at age 68. LOCATION: [facility] BREAST COMPOSITION: There are scattered areas of fibroglandular density. FINDINGS: DIAGNOSTIC CATEGORY 2--BENIGN FINDING. NO CHANGE FROM COMPARISON. Scattered benign-appearing calcifications are present. Scattered benign-appearing lymph nodes are present. RIGHT BREAST: No significant suspicious finding. LEFT BREAST: No significant suspicious finding. RECOMMENDATIONS: ROUTINE MAMMOGRAM AND CLINICAL EVALUATION IN 12 MONTHS. PLEASE NOTE: A NORMAL MAMMOGRAM DOES NOT EXCLUDE THE POSSIBILITY OF BREAST CANCER. A CLINICALLY SUSPICIOUS PALPABLE LUMP SHOULD BE BIOPSIED. Dictated by: Urbano Joshi MD on 10/31/2023 at 14:41 Approved by: Urbano Joshi MD on 10/31/2023 at 14:43 Dictated By: Urbano Joshi M.D. Signed By: 10/31/23 1444 DD/ 1443 TD/TT: Collective Bargaining Specialist: Procedure Note Radiology, Radiologist, MD - 10/31/[address] [address] Mammography Report Signed Patient: LORRI TYLER JMR#: [id number] : 9Acct:[id number] Age/Sex: 83 / FADM Date: 10/31/23 Loc: MAMMO Attending Dr: ALE GEE Ordering Physician: ALE GEEResults: Date of Service: 10/31/23Follow Up: Procedure(s): MM screening mammo BI Accession Number(s): [id number] cc: Jerome Goldsmith D.O.; ALE GEE Patient Name: LORRI TYLER MR#: [id number] : 1940 Exam Date: 10/31/2023 Ordering Doctor: DR ALE GEE RADIOLOGY REPORT PROCEDURE: MM SCREENING MAMMO BI COMPARISON: MM TOMOSYNTHESIS SCREENING BI, 10/04/2022. MG MAMM SCREENBIL W CAD, 11/03/2020. INDICATIONS: other screening mammogram Z12.31 Calculator Name NCI Breast Cancer Risk Assessment Tool 5 Year Breast Cancer Risk 1.10% Lifetime Breast Cancer Risk 1.10% Personal Breast Cancer No Personal Ovarian Cancer No Treatments None Family Cancers Mother with ovarian cancer at age 68. LOCATION: [facility] BREAST COMPOSITION: There are scattered areas of fibroglandulardensity. FINDINGS: DIAGNOSTIC CATEGORY 2--BENIGN FINDING. NO CHANGE FROM COMPARISON.Scattered benign-appearing calcifications are present. Scattered benign-appearinglymph nodes are present. RIGHT BREAST: No significant suspicious finding. LEFT BREAST: No significant suspicious finding. RECOMMENDATIONS: ROUTINE MAMMOGRAM AND CLINICAL EVALUATION IN 12 MONTHS. PLEASE NOTE: A NORMAL MAMMOGRAM DOES NOT EXCLUDE THE POSSIBILITY OFBREAST CANCER. A CLINICALLY SUSPICIOUS PALPABLE LUMP SHOULD BE BIOPSIED. Dictated by: Urbano Joshi MD on 10/31/2023 at 14:41 Approved by: Urbano Joshi MD on 10/31/2023 at 14:43 Dictated By: Urbano Joshi M.D. Signed By:10/31/23 1444 DD/ 1443 TD/TT: Collective Bargaining Specialist: us Ale Gee MD IMG BI PROCEDURES Final Result documented in this encounter Visit Diagnoses Not on filedocumented in this encounter Care Teams Xray Tech Relationship Specialty Start Date End Date Jerome Goldsmith DO PCP - General 09/28/22 documented as of this encounter
--- OUTSIDE RECORDS SUMMARY | 2024-11-03 11:25 | XMS_ITS | Encounter Summary ---
Author Organization [facility] Address [address] [facility] [place] [address] Care Team Providers Care Pipeline Construction Inspector Name Role Phone Jerome Goldsmith Primary Care Provider [phone] Encounter Details Date Type Department Care Team ([facility] Contact Info) Description 10/05/2022 Orders Only MOSSE[facility]ie [place] EASON [address] [facility] [address] [place] [address] Sabas Salinas MD [address] [facility] [address] [place] [address] Social History Tobacco Use Types Packs/Day Years [...] Description 09/30/2026 11:15 AM EDT Office Visit MOSESEvie [place] EASON [address] [facility] [address] [place] [address] Sabas Salinas MD [address] [facility] [address] [place] [address] documented as of this encounter Procedures Procedure Name Priority Date/Time Associated Diagnosis Comments MAMMOGRAM-DIAGNOSTIC* Routine 10/04/2022 2:25 PM EDT documented in this encounter Results * MAMMOGRAM-DIAGNOSTIC* (10/04/2022 2:25 PM EDT) Anatomical Region Laterality Modality Radiographic Angelica ging us Sabas Salinas MD IMG XR PROCEDURES Final Result documented in this encounter Visit Diagnoses Not on filedocumented in this encounter Care Teams Pipeline Construction Inspector Relationship Specialty Start Date End Date Jerome Goldsmith DO PCP - General 09/28/22 documented as of this encounter
--- OUTSIDE RECORDS SUMMARY | 2024-11-03 11:25 | XMS_ITS | Clinical Summary ---
Author Organization [facility] Address [address] [facility] [address] [place] [address] Care Team Providers Care Special Assets Officer Name Role Phone Jerome Goldsmith DO Primary Care Provider [phone] Allergies Active Allergy Reactions Criticality Noted Date Comments Lisinopril Other 09/26/2022 Medications triamcinolone (Kenalog) 0.1 % ointment Apply to affected areas, avoid skin folds topically BID prn for 30 days 3 Active mirabegron ER (Myrbetriq) 50 MG 24 hr tablet 1 (one) time each day at the same time. Active Acetaminophen (TYLENOL 8 HOUR PO) Tylenol Active ASPIRIN 81 PO Aspir-81 Active IBUPROFEN PO Ibuprofen Active levothyroxine (Synthroid, Levoxyl) 100 MCG tablet TAKE 1 TABLET BY MOUTH EVERY DAY IN THE MORNING ON EMPTY STOMACH FOR 90 DAYS 3 Active TURMERIC PO Take by mouth. Act selene Multiple Vitamin (multivitamin) capsule Take 1 capsule by mouth in the morning. Active Calcium Carb-Cholecalci ferol (CALCIUM/VITAMI N D PO) Take by mouth. Activ e montelukast (Singulair) 10 MG tablet Take by mouth. Activ e valsartan (Diovan) 320 MG tablet Take 320 mg by mouth Daily 5 Active Encounters Date Type Department Care Team Description 09/29/2024 10:30 AM EDT Office Visit [facility] [address] [place] [phone] Sabas Salinas MD Well woman exam with routine gynecological exam (Primary Dx); Cervical cancer screening; Other screening mammogram 09/29/2024 Bamboo flowsheet [facility] [address] [facility] [address] [place] [address] Sabas Salinas MD 09/29/2024 Travel from Last 3 Months Family History Medical History Relation Name Comments Heart disease Father Relation Name Status Comments Father Social History Tobacco Use Types Packs/Day Years Used Date Smoking Tobacco: Never Smokeless Tobacco: Never Tobacco Cessation:Counseling Given: Not Answered Alcohol Use Standard Drinks/Week Comments Yes 2 (1 standard drink = 0.6 oz pur e alcohol) Comments No Sex and Gender Information Value Date Recorded Sex Assigned at Not on file Legal Sex Female 6:46 PM EDT Gender Identity Not on file Sexual Orientation Not on file Last Filed Vital Signs Vital Sign Reading Time Taken Comments Blood Pressure 140/82 09/29/2024 10:11 AM EDT Pulse - - Temperature - - Respiratory Rate - - Oxygen Saturation - - Inhaled Oxygen Concentration - - Weight 79.4 kg (175 lb) 09/29/2024 10:11 AM EDT Height 163.8 cm (5' 4.5 ) 10/24/2021 12:00 PM ED T Body Mass Index 29.57 10/24/2021 12:00 PM EDT Plan of Treatment Upcoming Encounters Date Type Department Care Team (Late st Contact Info) Description 09/30/2026 11:15 AM EDT Office Visit [facility] [address] [facility] [address] [place] [address] Sabas Salinas MD [address] [facility] [address] [place] [address] Health Maintenance Due Date Last Done Comments Influenza Vaccine (#1) 2024 4, 11/16/2022, 11/11/2022, Additional history exists Pneumococcal Vaccine: 65+ Years Completed 6, 11/19/2014 Procedures Procedure Name Priority Date/Time Associated Diagnosis Comments IGP,RFX APTIMA HPV ALL PTH Routine 09/29/2024 12:00 AM EDT Cervical cancer screening from Last 3 Months Results * IGP,rfx Aptima HPV all pth (09/29/2024 12:00 AM EDT) Diagnosis: Comment [facility] Comment: NEGATIVE FOR INTRAEPITHELIAL LESION OR MALIGNANCY. CELLULAR CHANGES ASSOCIATED WITH ATROPHY ARE PRESENT. Specimen Adequacy: Comment [facility] Comment: Satisfactory for evaluation. Endocervical component may not be distinguished in cases of atrophy. Clinician Provided ICD10: Comment [facility] Comment:Z12.4 Performed By: Comment [facility] Comment:Tanika Gray ytologist (ASCP) Cyto Comments . [facility] Note: Comment [facility] Comment: The Pap smear is a screening test designed to aid in the detection of premalignant and malignant conditions of the uterine cervix. It is not a diagnostic procedure and should not be used as the sole means of detecting cervical cancer. Both false-positive and false-negative reports do occur. Test Methodology: Comment [facility] Comment: This liquid based ThinPrep(R) pap test was screened with the use of an image guided system. . Comment [facility] Comment: The HPV DNA reflex criteria were not met with this specimen result therefore, no HPV testing was performed. Swab Cervical swab / Unknown 09/29/2024 09/30/2024 Comment:Cervical Swab Print r Narrative [facility] - 10/01/2024 3:07 PM EDT Performed at: [facility] [id number] Utility Bag Assembler: Toña Mckeon MD, Phone: [phone] Specimen Comment: [id number] Specimen Comment: Source.............Cervix Specimen Comment: No. of containers..01 ThinPrep Vial us Sabas Salinas MD LAB CYTOLOGY ORDERABLES Final Result [facility] from Last 3 Months Insurance [employer] MED[employer]ARE [employer]VANTAGE Care Teams Special Assets Officer Relationship Specialty Start Date End Date Jerome Goldsmith DO PCP - General 09/28/22
--- NOTE | 2024-11-03 11:27 | MM_ITS ---
Patient Name: ANSLEY CAGE MR#: [id number] : 1940 Exam Date: 11/03/2024 Ordering Doctor: DR ALE GEE RADIOLOGY REPORT PROCEDURE: MM SCREENING MAMMO BI COMPARISON: MM SCREENING MAMMO BI, 10/31/2023. MM TOMOSYNTHESIS SCREENING BI, 10/04/2022. MG MAMM SCREEN VEGA W CAD, 11/03/2020. MG MAMM VEGA SCRN W CAD DIG, 11/18/2012. INDICATIONS: Screening Calculator Name NCI Breast Cancer Risk Assessment Tool 5 Year Breast Cancer Risk Not Applicable. Lifetime Breast Cancer Risk Not Applicable. Personal Breast Cancer No Personal Ovarian Cancer No Treatments None Family Cancers Mother with ovarian cancer at age ~68. LOCATION: [facility] BREAST COMPOSITION: There are scattered areas of fibroglandular density. FINDINGS: DIAGNOSTIC CATEGORY 1--NEGATIVE. RIGHT BREAST: No significant suspicious finding. LEFT BREAST: No significant suspicious finding. RECOMMENDATIONS: ROUTINE MAMMOGRAM AND CLINICAL EVALUATION IN 12 MONTHS. Dictated by: Jass Cheatham DO on 11/04/2024 at 15:32 Approved by: Jass Cheatham DO on 11/04/2024 at 15:34
--- OUTSIDE RECORDS SUMMARY | 2024-11-03 11:28 | XMS_ITS | CCD ---
Author Organization [facility]iniSy[facility] Care Team Providers Care Hydro Generation Manager Name Role Phone Jerome Gr Primary Care Provider DR DAVID ARELLANO V Consulting Unavailable PRINTY, DR AGUILERA Admitting Unavailable GERARD, DR AGUILERA Attending Unavailable SIMÓN, DR CANO Primary Care Unavailable GERARD, DR AGUILERA Consulting Unavailable Jerome Gr Unavailable Simón, DO Cano Primary Care Provider [phone] Simón, DO Jerome Attending Provider Dori Buchanan Unavailable Simón, DO Cano Primary Care Provider Bett[place], [facility]- Nikole Bautista Emergency Provider [phone] Simón, DO Cano Attending Provider [phone] Gin Olivares Unavailable Simón, DO Cano Primary Care Provider DENNIS Olivares Attending Provider Simón, DO Cano Primary Care Provider Simón, DO Jerome Attending Provider [phone] Bandars, DO Cano Primary Care Provider [phone] Simón, DO Cano Attending Provider Jerome Gr DO Primary Care Provider Joseph Sharma MD Attending Provider [phone] Jerome Gr DO P Primary Care Provider [phone] SABAS SALINAS Attending Unavailable Jerome Gr DO Primary Care Provider Joseph Sharma MD Attending Provider Jerome Gr DO Primary Care Provider [phone] Joseph Sharma MD Attending Provider Jerome Gr DO Attending Provider Jerome Gr DO Primary Care Provider Joseph Sharma MD Attending Provider Jerome Gr Attending Unavailable Jerome Gr Primary Care Unavailable Jerome Gr Admitting Unavailable Allergies Allergy Classification Reported Allergen(s) Allergy Type Date of Onset Reaction(s) Facility Angiotensin Converting Enzyme (PRINCE) Inhibitors (1 source) Lisinopril Drug Allergy 11-04-19 14 Cough [facility] Unclassified (1 source) Seasonal allergy Allergy to substance 11-04-19 14 Other: See Comments [facility] (20 sources) Amino Acids Drug Allergy 09-23-19 22 Cough [facility] Repository (20 sources) Amoxicillin; Translations: [amoxicillin] Drug Allergy 06-14-19 24 diarrhea [facility] (19 sources) Lisinopril Drug Allergy [facility] Other (20 sources) Acetaminophen Drug Allergy 06-14-19 24 ITCHING [facility] (3 sources) Lisinopril Propensity to adverse reactions 09-27-19 23 Other [facility] (1 source) Acetaminophen Drug Allergy 10-17-19 25 [facility] Repository (1 source) Lisinopril Drug Allergy 10-17-19 25 [facility] Repository Medications Current Medications Medication Drug Class(es) Dates Sig (Normalized) Sig (Original) Acetaminophen (8 sources) Acetaminophen (T YLENOL 8 HOUR PO) Tylenol Active take 2 tablets by mo uth every eight hours as needed Acetaminophen ER 650 MG 2 tablets as nee ded Orally every 8 hrs Active ACETAMINOPHEN (T YLENOL EXTRA STRENGTH ORAL) Take by mouth twice daily. 0 Active Comment on above: Take by mouth twice daily. Aspirin (14 sources) Platelet Aggregation Inhibitor, Nonsteroidal Anti-inflammatory Drug ASPIRIN 81 PO Aspir- 81 Active take 1 tablet by vanessa th every twenty-four hours Aspirin 81 MG 1 tablet Orally Once a day Not-Taking betamethasone 0.5 mg/ml topical cream (11 sources) Corticosteroid Start: 08-03-2021 Betamethasone Dipropionate 0.05 % 1 application Externally Once a day to affected area Jul, Active Biotin (11 sources) take 1 capsule by mouth once daily Biotin 5000 5 MG 1 capsule Orally Once a day Active Calcium (20 sources) Phosphate Binder, Calcium take 1 tablet by mouth once daily Calcium 1500 MG 1 tablet Orally once a day Active Calcium Carb-Cholecalciferol (CALCIUM/VITAMIN D PO) (3 sources) Calcium Carb-Cholecalcifer ol (CALCIUM/VITAMIN D PO) Take by mouth. Active calcium carbonate 1500 mg / cholecalciferol 2500 unt oral capsule (10 sources) Vitamin D Start: 10-05-2023 Calcium Carbonate / vitamin D3 (6 sources) Start: 10-05-2023 Calcium Carbonate-Vitamin D3 Active CAP PO October 05, 2023 12:00am Calcium Carbonate-Vitamin D3 600 mg-62.5 mcg (2,500 unit) capsule (3 sources) Start: 10-05-2023 Calcium Carbonate-Vitamin D3 600 mg-62.5 mcg (2,500 unit) capsule Active CAP PO October 05, 2023 12:00am Compression stockings, 20-30mmHg, thigh 20-30mmHg (6 sources) Start: 10-12-2022 Compression stockings, 20-30mmHg, thigh 20-30mmHg 1 externally daily as directed for 30 days Sep, Active diphenhydrAMINE hydrochloride 25 mg oral tablet (10 sources) Histamine-1 Receptor Antagonist take 1 tablet by mouth every twenty-four hours Benadryl Allergy 25 MG 1 tablet at bedtime as needed Orally Once a day Active gabapentin 300 mg oral capsule (20 sources) Anti-epileptic Agent Start: 10-05-2023 End: 10-20-2024 take 1 capsule by mouth twice daily as needed Start: 06-14-2023 End: 10-05-2023 take 1 capsule by mouth once daily Gabapentin 300 mg capsule Discontinued 300 MG PO Daily June 14, 2023 12:00am October 05, 2023 11:01am hydroCHLOROthiazide 25 mg or al tablet (20 sources) Thiazide Diuretic Start: 10-05-2023 take 1 tablet by mouth once daily Start: 09-24-2013 Hydrochlorothi azide 12.5 mg capsule hydroCHLOROthiazide 12.5 mg / valsartan 160 mg oral tablet (3 sources) Thiazide Diuretic, Angiotensin 2 Receptor Cade End: 09-29-2024 take 1 tablet by mouth in the morning valsartan-hydroCHLOROthiazide (Diovan-HCT) 160-12.5 MG tablet Take 1 tablet by mouth in the morning. 09/29/2024 Discontinued (Ineffective) 24 hr mirabegron 50 mg extended release oral tablet (9 sources) beta3-Adrener gic Agonist Start: 08-03-2021 take 1 tablet by mouth every twenty-fo ur hours Myrbetriq 50 MG 1 tablet Orally Once a day for 90 days Jul, Active Start: 08-03-2021 take 1 tablet by vanessa th every twenty-four hours Myrbetriq 25 MG 1 tablet Orally Once a day sample provided Jul, Active Multiple Vitamin (multivitamin) capsule (3 sources) take 1 capsule by mouth in the morning Multiple Vitamin (multivitamin) capsule Take 1 capsule by mouth in the morning. Active Multivitamin (Multiple Vitamins) tablet (2 sources) Start: 10-20-2024 take 1 tablet by mouth once daily Start: 10-20-2024 take 1 tablet by vanessa th once daily Multivitamin (Multiple Vitamins) tablet Active 1 TAB PO Daily October 20, 2024 12:00am Complies with drug therapy Multivitamin preparation (6 sources) Multivitamin Act selene Naproxen (6 sources) Nonsteroidal Anti-inflammatory Drug Aleve Active Turmeric extract (3 sources) TURMERIC PO Take by mouth. Active Turmeric Root Extract 500 mg tablet (2 sources) Start: take 1 tablet by mouth once daily Start: 10-20-2024 take 1 tablet by vanessa th once daily Turmeric Root Extract 500 mg tablet Active 500 MG PO Daily October 20, 2024 12:00am Complies with drug therapy valsartan 320 mg oral tablet (20 sources) Angiotensin 2 Receptor Cade Start: 10-20-2024 take 1 tablet by mouth once daily Start: 08-12-2024 take 1 tablet by vanessa th once daily valsartan (Diovan) 320 MG tablet Take 320 mg by mouth Daily 08/12/2024 Active Start: 10-05-2023 End: 10-20-2024 Valsartan 80 mg tablet Disco ntinued 320 MG PO October 05, 2023 11:00am October 20, 2024 1:18pm Start: 10-05-2023 Valsartan Acti ve 320 MG PO October 05, 2023 11:00am Start: 06-22-2022 End: 10-05-2023 Valsartan Discontinued MG TA BLET June 22, 2022 12:00am October 05, 2023 11:01am Start: 08-03-2021 End: 09-29-2024 Valsartan 80 mg tablet Disco ntinued MG June 22, 2022 12:00am October 05, 2023 11:01am Start: 09-24-2013 valsartan (MACEY VAN) 160 mg tablet vitamin b12 1 mg oral tablet (8 sources) Vitamin B12 Start: 10-20-2024 take 1 tablet by vanessa th once daily Vitamin B12 Acti ve Completed/Discontinued Medications Medication Drug Class(es) Dates Sig (Normalized) Sig (Original) acetaminophen 325 mg / HYDROcodone bitartrate 5 mg oral tablet (20 sources) Opioid Agonist Start: 06-22-2022 End: 06-14-2023 take 1 tablet by mouth every six hours as needed for pain Hydrocodone-Acetamin ophen 5-325 mg tablet Discontinued 1 TAB PO Q6H as needed for pain 10 June 22, 2022 June 14, 2023 9:57am cyclobenzaprine hydrochloride 5 mg oral tablet (20 sources) Muscle Relaxant Start: 06-22-2022 End: 10-05-2023 take 1 tablet by mouth three times daily as needed for muscle spasms Cyclobenzaprine 5 mg tablet Discontinued 5 MG PO Three times daily as needed for muscle spasm June 22, 2022 12:00am October 05, 2023 10:59am ibuprofen 800 mg oral tablet (20 sources) Nonsteroidal Anti-inflammatory Drug Start: 03-10-2024 End: 10-20-2024 take 1 tablet by mouth twice daily as needed for pain Ibuprofen 800 mg tablet Discontinued 800 MG PO Twice daily as needed for pain July 01, 2024 11:11am October 20, 2024 2:02pm Start: 01-29-2024 End: 03-10-2024 take 1 tablet by mouth every eight hours as needed for pain Ibuprofen 800 mg tablet Discontinued 800 MG PO Every 8 hours as needed for pain January 29, 2024 1:00am March 10, 2024 2:50pm Start: 10-25-2023 End: 01-29-2024 take 1 tablet by mouth every six hours as needed for pain Ibuprofen 200 mg tablet Discontinued 200 MG PO Every 6 hours as needed for fever or pain January 21, 2024 12:57pm January 29, 2024 6:03pm Start: 09-14-2023 End: 10-05-2023 take 1 tablet by mouth three times daily at mealtime as needed Ibuprofen 800 mg tablet Discontinued 800 MG PO September 14, 2023 12:00am October 05, 2023 11:00am FreeTextSi tablet with food or milk as needed Orally Three times a day as needed; Note: Source Status: Taking; Refills: 3; Provider: Simón Sanchez Start: 06-22-2022 End: 06-14-2023 Ibuprofen Discontinued MG TA BLET June 22, 2022 12:00am June 14, 2023 9:57am Start: 10-31-2021 take 1 tablet by vanessa th three times daily at mealtime as needed Ibuprofen 800 MG 1 tablet with food or milk as needed Orally Three times a day as needed Oct, Active Start: 10-31-2021 End: 06-14-2023 Ibuprofen 600 mg tablet Discontinued MG June 22, 2022 12:00am June 14, 2023 9:57am IBUPROFEN PO Ibu profen Active levothyroxine sodium 0.1 mg oral tablet (20 sources) l-Thyroxine Start: 06-22-2022 End: 10-20-2024 take 1 tablet by mouth once daily Levothyroxine 100 mcg tablet Discontinued 100 MCG PO Daily July 01, 2024 11:11am October 20, 2024 2:02pm Start: 06-22-2022 Levothyroxine Active MCG TABLET June 22, 2022 12:00am Start: 08-03-2021 Synthroid 100 MCG 1 tablet every morning on an empty stomach Orally Once a day for 90 days Jul, Active Start: 08-19-2013 levothyroxine (SYNTHROID) 175 mcg tablet lidocaine 0.05 mg/mg medicated patch (20 sources) Antiarrhythmic, Amide Local Anesthetic Start: 06-22-2022 End: 10-20-2024 apply 1 dose topically once daily as needed for pain Lidocaine 5 % adhesive patch,medicated Discontinued 1 PATCH TOPICAL Daily as needed for pain June 22, 2022 12:00am October 20, 2024 1:17pm leave on most painful area for up to 12 hrs methylPREDNISolone (20 sources) Corticosteroid Start: 10-14-2013 SOLU-MEDROL UP TO 40 mg Oct, 1 mL montelukast 10 mg oral tablet (20 sources) Leukotriene Receptor Antagonist Start: 06-22-2022 End: 11-06-2023 Montelukast Discontinued MG TABLET June 22, 2022 12:00am November 06, 2023 10:59am Start: 10-16-2013 End: 10-20-2024 take 1 tablet by mouth once daily at bedtime Montelukast 10 mg tablet Discontinued 10 MG PO Daily at bedtime November 06, 2023 11:00am May 05, 2024 7:44am multivitamin tablet (1 source) take 1 tablet by mouth once daily multivitamin tablet Take 1 tablet by mouth once daily. 0 Active Comment on above: Take 1 tablet by vanessa once daily. 24 hr oxybutynin chloride 5 mg extended release oral tablet (9 sources) Cholinergic Muscarinic Antagonist Start: take 1 tablet by mouth every twelve hours Oxybutynin Chloride ER 5 MG 1 tablet Orally twice a day for 90 days Nov, Not-Taking Start: 09-24-2013 End: 09-29-2024 oxybutynin (DITROPAN) 5 mg t ablet predniSONE 20 mg oral tablet (20 sources) Start: 06-22-2022 End: 10-05-2023 take 1 tablet by mouth twice daily Prednisone 20 mg tablet Discontinued 20 MG PO Twice daily 11 16June 22, 2022 12:00am October 05, 2023 11:00am Start: 08-03-2021 predniSONE 20 MG 1 tablet twice per day for 5 days and then 1 tablet daily for 5 days and then stop Orally as directed for 10 days Jul, Active take 1 tablet by vanessa every twenty-four hours predniSONE 20 MG 1 tablet Orally Once a day Not-Taking traMADol hydrochloride 50 mg oral tablet (20 sources) Opioid Agonist Start: 09-14-2023 End: 10-25-2023 take 1 tablet by mouth four times daily as needed Tramadol 50 mg tablet Discontinued 50 MG PO Four times daily September 14, 2023 12:00am October 25, 2023 2:04pm [employer] tablet as needed Orally Four times a day; Note: Source Status: Taking; Refills: 0; Qty: 120 Tablet; Provider: Simón Sanchez Start: 10-10-2022 take 1 tablet by vanessa th every six hours traMADol HCl 50 MG 1 tablet as needed Orally Four times a day for 30 days Sep, Active Start: 10-02-2022 take 1 tablet by vanessa th every six hours traMADol HCl 50 MG 1 tablet as needed Orally Four times a day for 30 days Sep, Active triamcinolone acetonide 0.001 mg/mg topical ointment (20 sources) Corticosteroid Start: 08-01-2022 Kenalog-40 Jul, 1 mL Start: 03-07-2022 End: 10-20-2024 Triamcinolone Acetonide 0.1 % ointment Discontinued 1 APPLIC TOPICAL Twice daily September 14, 2023 12:00am October 20, 2024 1:19pm [employer] application Externally Twice a day; Note: Source Status: Taking; Provider: Dr.Petti Pari BOYRE Problems Active Problems Problem Classification Problem Date Documented Date Episodic/Chronic Administrative/social admission (11 sources) Dietary management surveillance; Translations: [Dietary counseling and surveillance] Episodic Allergic reactions (20 sources) Allergy, unspecified, initial encounter; Translations: [Inflammatory dermatosis] Onset: 08-03-2021 Resolved: 10-21-2021 Episodic Anal and rectal conditions (20 sources) Rectal polyp; Translations: [Rectal polyp] Episodic Biliary tract disease (20 sources) Stenosis of bile duct; Translations: [Obstruction of bile duct] Onset: 09-26-2021 Resolved: 09-26-2021 Chronic Biliary tract disease (20 sources) Biliary sludge; Translations: [Other specified diseases of gallbladder] Onset: 09-26-2021 Resolved: 10-21-2021 Episodic Deficiency and other anemia (20 sources) Anemia; Translations: [Anemia, unspecified] Episodic Deficiency and other anemia (1 source) Anemia, unspecified Episodic Diabetes mellitus without complication (20 sources) Hyperglycemia; Translations: [Hyperglycemia, unspecified] Onset: 10-06-2024 Episodic Diseases of white blood cells (1 source) Neutropenia; Translations: [Neutropenia, unspecified] Onset: 11-03-2013 11-03-2013 Chronic Disorders of lipid metabolism (20 sources) Hyperlipidemia; Translations: [Hyperlipidemia, unspecified] Onset: 08-03-2021 Resolved: 08-03-2021 Chronic Diverticulosis and diverticulitis (20 sources) Diverticular disease; Translations: [Diverticulosis of intestine, part unspecified, without perforation or abscess without bleeding] Chronic E Codes: Natural/environment (11 sources) Insect bite - wound; Translations: [Bitten or stung by nonvenomous insect and other nonvenomous arthropods, initial encounter] Episodic Essential hypertension (20 sources) Hypertensive disorder; Translations: [Essential (primary) hypertension] Onset: 08-03-2021 Resolved: 10-21-2021 Chronic Hemorrhoids (20 sources) Internal hemorrhoids; Translations: [Other hemorrhoids] Episodic Osteoarthritis (20 sources) Osteoarthritis; Translations: [Unspecified osteoarthritis, unspecified site] Chronic Other and unspecified benign neoplasm (20 sources) History of polyp of colon; Translations: [Personal history of colonic polyps] Episodic Other connective tissue disease (20 sources) History of repair of hip joint; Translations: [Presence of unspecified artificial hip joint] Chronic Other connective tissue disease (1 source) Presence of unspecified artificial hip joint Onset: 08-03-2021 Resolved: 08-03-2021 Chronic Other connective tissue disease (12 sources) Muscle weakness of limb; Translations: [Other symptoms and signs involving the musculoskeletal system] Episodic Other connective tissue disease (3 sources) Other symptoms and signs involving the musculoskeletal system Episodic Other connective tissue disease (1 source) Pain in right leg Episodic Other connective tissue disease (1 source) Pain in left leg Episodic Other diseases of bladder and urethra (20 sources) Bladder irritability; Translations: [Other specified disorders of bladder] Chronic Other diseases of bladder and urethra (6 sources) Other specified disorders of bladder Onset: 08-03-2021 Resolved: 10-21-2021 Chronic Other diseases of veins and lymphatics (1 source) Vascular insufficiency; Translations: [Venous insufficiency (chronic) (peripheral)] Episodic Other diseases of veins and lymphatics (5 sources) Peripheral venous insufficiency; Translations: [Venous insufficiency (chronic) (peripheral)] Episodic Other diseases of veins and lymphatics (2 sources) Venous insufficiency (chronic) (peripheral) Episodic Other nervous system disorders (20 sources) Chronic pain; Translations: [Other chronic pain] 11-12-2023 Chronic Other nervous system disorders (10 sources) Other chronic pain; Translations: [Other chronic pain] Chronic Other nervous system disorders (3 sources) Neuropathy; Translations: [Polyneuropathy, unspecified] Chronic Other nervous system disorders (12 sources) Pins and needles; Translations: [Paresthesia of skin] Episodic Other nervous system disorders (2 sources) Paresthesia of skin Episodic Other non-traumatic joint disorders (9 sources) Pain in left shoulder; Translations: [Left shoulder pain] Episodic Other non-traumatic joint disorders (2 sources) Stiffness of left shoulder, not elsewhere classified; Translations: [Decreased ROM of left shoulder] Episodic Other non-traumatic joint disorders (10 sources) Stiffness of left shoulder; Translations: [Stiffness of left shoulder, not elsewhere classified] Episodic Other non-traumatic joint disorders (5 sources) Chronic pain of left upper limb; Translations: [Pain in left shoulder] Episodic Other nutritional; endocrine; and metabolic disorders (20 sources) Obese class I; Translations: [Body mass index (BMI) 31.0-31.9, adult] Chronic Other nutritional; endocrine; and metabolic disorders (20 sources) Obesity; Translations: [Obesity, unspecified] Chronic Other nutritional; endocrine; and metabolic disorders (20 sources) Unintentional weight loss; Translations: [Abnormal weight loss] Episodic Other screening for suspected conditions (not mental disorders or infectious disease) (12 sources) Encounter for screening mammogram for malignant neoplasm of breast; Translations: [Cancer cervix screening status] Onset: 11-03-2020 Episodic Other upper respiratory disease (5 sources) Seasonal allergy; Translations: [Other seasonal allergic rhinitis] Chronic Other upper respiratory disease (2 sources) Other seasonal allergic rhinitis Chronic Residual codes; unclassified (1 source) Family history of malignant neoplasm of ovary; Translations: [FAM HX MALIGNANT NEOPLASM OVARY] Onset: 12-01-2020 Episodic Residual codes; unclassified (4 sources) Postmenopausal state; Translations: [Asymptomatic menopausal state] 10-20-2024 Episodic Spondylosis; intervertebral disc disorders; other back problems (20 sources) Lumbar spondylosis; Translations: [Spondylosis without myelopathy or radiculopathy, lumbar region] Chronic Spondylosis; intervertebral disc disorders; other back problems (20 sources) Neck pain; Translations: [Cervicalgia] Episodic Thyroid disorders (20 sources) Hypothyroidism; Translations: [Hypothyroidism, unspecified] Onset: 08-03-2021 Resolved: 10-21-2021 Chronic Varicose veins of lower extremity (20 sources) Varicose veins of lower extremity; Translations: [Varicose veins of bilateral lower extremities with other complications] Episodic Past or Other Problems Problem Classification Problem Date Documented Da te Episodic/Chronic Immunizations and screening for infectious disease (1 source) Other specified abnormal immunological findings in serum Onset: 2 Resolved: 2 Episodic Other inflammatory condition of skin (1 source) Pruritus, unspecified Onset: 2 Resolved: 2 Episodic Other nutritional; endocrine; and metabolic disorders (2 sources) Abnormal weight loss Onset: 2 Resolved: 2 Episodic Phlebitis; thrombophlebitis and thromboembolism (1 source) Personal history of thrombophlebitis Onset: 2 Resolved: 2 Episodic Unclassified (1 source) Vaccine counseling Z71.85 Onset: 2 Resolved: 2 Results Test Name Value Interpretation Reference Range Facility A1C with Estimated Average G madelin 10-06-2024 Glucose [Mass/Vol] 128 mg/dL Normal [facility] Comment on above: Result Comment: PERF ORMED BY: [place] [address] PATHOLOGIST [employer] INSTALLER KELLY SORIA M.D. Performed By: #### C MP, TSH3, CBC, A1C WTH eA, LIPID #### [facility] [address] [id number] [place] Alanine aminotransferase [En zymatic activity/volume] in Serum or PlasmaOrdered By: Jerome Gr on 10-06-2024 ALT [Catalytic activity/Vol] 12 U/L [facility] Comment on above: Performed By: #### C MP, TSH3, CBC, A1C WT eA, LIPID #### [facility] [address] [id number] [place] Albumin [Mass/volume] in Ser um or Plasma by Bromocresol green (BCG) dye binding methoOrdered By: Jerome Gr on 10-06-2024 Albumin BCG dye [Mass/Vol] 4.0 g/dL 3.5-5.7 [facility] Alkaline phosphatase [Enzyma tic activity/volume] in Serum or PlasmaOrdered By: Jerome Gr on 10-06-2024 ALP [Catalytic activity/Vol] 67 U/L 34-104 [facility] Comment on above: Performed By: #### C MP, TSH3, CBC, A1C WT eA, LIPID #### [facility] [address] [place] [address] [place] Aspartate aminotransferase [ Enzymatic activity/volume] in Serum or PlasmaOrdered By: Jerome Gr on 10-06-2024 AST [Catalytic activity/Vol] 14 U/L 13-39 [facility] Comment on above: Performed By: #### C MP, TSH3, CBC, A1C WT eA, LIPID #### [facility] [address] [place] [address] [place] Basophils [#/volume] in Bloo d by Automated countOrdered By: Jerome Gr on 10-06-2024 Basophils (Bld) [#/Vol] 0.1 10*3/uL 0.0-0.2 [facility] Comment on above: Result Comment: PERF ORMED BY: [place] [address] PATHOLOGIST [employer] INSTALLER KELLY SORIA M.D. Performed By: #### C MP, TSH3, CBC, A1C WTH eA, LIPID #### [facility] [address] [place] [address] [place] Basophils/100 leukocytes in Blood by Automated countOrdered By: Jerome Gr on 10-06-2024 Basophils/100 WBC (Bld) 1.1 % . [facility] Comment on above: Performed By: #### C MP, TSH3, CBC, A1C WT eA, LIPID #### [facility] [address] [place] [address] [place] Bilirubin.total [Mass/volume ] in Serum or PlasmaOrdered By: Jerome Gr on 10-06-2024 Bilirubin [Mass/Vol] 0.5 mg/dL 0.3-1.0 [facility] Comment on above: Performed By: #### C MP, TSH3, CBC, A1C WTH eA, LIPID #### [facility] [address] Blood estimated average gluc ose determination by estimation from glycated hemoglobinOrdered By: Jerome Gr on 10-06-2024 Average glucose Estimated from glycated hemoglobin (Bld) [Mass/Vol] 128 mg/dL [facility] Calcium [Mass/volume] in Ser um or PlasmaOrdered By: Jerome Gr on 10-06-2024 Calcium [Mass/Vol] 8.9 mg/dL 8.6-10.3 [facility] Comment on above: Performed By: #### C MP, TSH3, CBC, A1C WTH eA, LIPID #### [facility] [address] [place] [address] [place] Carbon dioxide, total [Moles /volume] in Serum or PlasmaOrdered By: Jerome Gr on 10-06-2024 CO2 [Moles/Vol] 30.9 mmol/L 21.0-31.0 [facility] Comment on above: Performed By: #### C MP, TSH3, CBC, A1C WTH eA, LIPID #### [facility] [address] [place] [address] [place] Chloride [Moles/volume] in S silvano or PlasmaOrdered By: Jerome Gr on 10-06-2024 Chloride [Moles/Vol] 101 mmol/L 98-107 [facility] Comment on above: Performed By: #### C MP, TSH3, CBC, A1C WTH eA, LIPID #### [facility] [address] [place] [address] [place] Cholesterol [Mass/volume] in Serum or PlasmaOrdered By: Jerome Gr on 10-06-2024 Cholesterol [Mass/Vol] 214 mg/dL High 140-200 [facility] Comment on above: Chol less than 200 m g/dl low riskChol 201-239 mg/dl borderline riskChol 240 mg/dl and greater high risk Result Comment: Chol less than 200 mg/dl low risk Chol 201-239 mg/dl borderline risk Chol 240 mg/dl and greater high risk Performed By: #### C MP, TSH3, CBC, A1C WTH eA, LIPID #### [facility] [address] [place] [address] [facility] Cholesterol in HDL [Mass/vol ume] in Serum or PlasmaOrdered By: Jerome Gr on 10-06-2024 Cholesterol in HDL [Mass/Vol] 71 mg/dL 23- [facility] Comment on above: HDL CHOL ATP-III CLA SSIFICATION Cardiovascular RiskHDL > or equal to 60 mg/dL LOWHDL < 40 mg/dL HIGH Result Comment: HDL CHOL ATP-III CLASSIFICATION Cardiovascular Risk HDL > or equal to 60 mg/dL LOW HDL < 40 mg/dL HIGH Performed By: #### C MP, TSH3, CBC, A1C WTH eA, LIPID #### [facility] [address] [place] [address] [place] Cholesterol in LDL Calc [Mas s/Vol]Ordered By: Jerome Gr on 10-06-2024 Cholesterol in LDL [Mass/Vol] 122 mg/dL High 0-100 [facility] Comment on above: LDL ATP III CLASSIFI CATIONLDL less than 100 mg/dL OptimalLDL 100-129 mg/dL Near or above optimalLDL 130-159 mg/dL Borderline highLDL 160-189 mg/dL HighLDL greater than 189 mg/dL Very high Cholesterol in VLDL Calc [Ma ss/Vol]Ordered By: Jerome Gr on 10-06-2024 Cholesterol in VLDL [Mass/Vol] 21 mg/dL [facility] Complete Blood Count Auto Di ffon 10-06-2024 Mean Corpuscular HGB Conc 33.5 g/dL Normal 32.0-35.0 [facility] Comment on above: Performed By: #### C MP, TSH3, CBC, A1C WTH eA, LIPID #### [facility] [address] [place] [address] [place] NRBC% 0.1 /100{WBC} Normal 0-0.5 [facility] Comment on above: Performed By: #### C MP, TSH3, CBC, A1C WTH eA, LIPID #### [facility] [address] White Blood Count 6.2 [CFU]/mL Normal 3.8-11.6 [facility] Comment on above: Performed By: #### C MP, TSH3, CBC, A1C WTH eA, LIPID #### [address] Comprehensive Metabolic Pane douglas 10-06-2024 Albumin [Mass/Vol] 4.0 g/dL Normal 3.5-5.7 [facility] Comment on above: Performed By: #### C MP, TSH3, CBC, A1C WTH eA, LIPID #### [place] [address] [place] GFR/1.73 sq M.predicted MDRD (S/P/Bld) [Vol rate/Area] mL/min/{1.73_m2} Normal [facility] Comment on above: Performed By: #### C MP, TSH3, CBC, A1C WTH eA, LIPID #### [place] [address] [place] Creatinine [Mass/volume] in Serum or PlasmaOrdered By: Jeroem Gr on 10-06-2024 Creatinine [Mass/Vol] 0.73 mg/dL 0.60-1.20 [facility] Comment on above: Performed By: #### C MP, TSH3, CBC, A1C WTH eA, LIPID #### [place] [address] [place] Eosinophils [#/volume] in Bl ood by Automated countOrdered By: Jerome Gr on 10-06-2024 Eosinophils (Bld) [#/Vol] 0.2 10*3/uL 0.0-0.45 [facility] Comment on above: Performed By: #### C MP, TSH3, CBC, A1C WTH eA, LIPID #### [place] [address] [place] Eosinophils/100 leukocytes i n Blood by Automated countOrdered By: Jerome Gr on 10-06-2024 Eosinophils/100 WBC (Bld) 3.3 % . [facility] Comment on above: Performed By: #### C MP, TSH3, CBC, A1C WTH eA, LIPID #### [facility] [address] Erythrocyte distribution wid th [Ratio] by Automated countOrdered By: Jerome Gr on 10-06-2024 Erythrocyte distribution width (RBC) [Ratio] 14.1 % 11.9-15.3 [facility] Comment on above: Performed By: #### C MP, TSH3, CBC, A1C WTH eA, LIPID #### [facility] [address] Erythrocytes [#/volume] in B lood by Automated countOrdered By: Jerome Gr on 10-06-2024 RBC (Bld) [#/Vol] 3.67 10*6/uL 3.60-5.00 [facility] Comment on above: Performed By: #### C MP, TSH3, CBC, A1C WTH eA, LIPID #### [facility] [address] Glomerular filtration rate [ Volume Rate/Area] in Serum, Plasma or Blood by CreatinineOrdered By: Jerome Gr on 10-06-2024 Glomerular filtration rate [Volume Rate/Area] in Serum, Plasma or Blood by Creatinine > 60.0 mL/Min [facility] Glucose [Mass/volume] in Ser um or PlasmaOrdered By: Jerome Gr on 10-06-2024 Glucose [Mass/Vol] 98 mg/dL 70-100 [facility] Comment on above: ADA recommended refe rence rangeRandom Glucose Reference Range is dependent on time and content of last meal. Glucose of more than 200 mg/dL in a nonstressed, ambulatory subject supports the diagnosis of Diabetes Mellitus. Result Comment: [place] om Glucose Reference Range is dependent on time and content of last meal. Glucose of more than 200 mg/dL in a nonstressed, ambulatory subject supports the diagnosis of Diabetes Mellitus. ADA recommended reference range Performed By: #### C MP, TSH3, CBC, A1C WTH eA, LIPID #### [facility] [address] Hematocrit [Volume Fraction] of Blood by Automated countOrdered By: Jerome Gr on 10-06-2024 Hematocrit (Bld) [Volume fraction] 34.6 % 34.0-46.4 [facility] Comment on above: Performed By: #### C MP, TSH3, CBC, A1C WTH eA, LIPID #### [facility] [address] Hemoglobin A1c/Hemoglobin.to himanshu in BloodOrdered By: Jerome Gr on 10-06-2024 HbA1c (Bld) [Mass fraction] 6.1 % High 4.3-5.6 [facility] Comment on above: Increased risk for d iabetes: 5.7 - 6.4diabetes: >6.4glycemic control for adults with diabetes: <7.0 Result Comment: Incr eased risk for diabetes: 5.7 - 6.4 diabetes: >6.4 glycemic control for adults with diabetes: <7.0 Performed By: #### C MP, TSH3, CBC, A1C WTH eA, LIPID #### [facility] [address] Hemoglobin [Mass/volume] in BloodOrdered By: Jerome Gr on 10-06-2024 Hemoglobin (Bld) [Mass/Vol] 11.6 g/dL Low 11.8-15.4 [facility] Comment on above: Performed By: #### C MP, TSH3, CBC, A1C WTH eA, LIPID #### [facility] [address] Leukocytes [#/volume] correc [place] for nucleated erythrocytes in Blood by Automated counOrdered By: Jerome Gr on 10-06-2024 WBC corrected for nucl RBC Auto (Bld) [#/Vol] 6.2 10*3/uL 3.8-11.6 [facility] Leukocytes [#/volume] in Blo od by Automated countOrdered By: Jerome Gr on 10-06-2024 WBC (Bld) [#/Vol] 6.2 10*3/uL 3.8-11.6 [facility] Comment on above: Performed By: #### C MP, TSH3, CBC, A1C WTH eA, LIPID #### [facility] [address] Lipid Panelon 10-06-2024 LDL Cholesterol,Calculated 122 mg/dL High 0-100 [facility] Comment on above: Result Comment: LDL ATP III CLASSIFICATION LDL less than 100 mg/dL Optimal LDL 100-129 mg/dL Near or above optimal LDL 130-159 mg/dL Borderline high LDL 160-189 mg/dL High LDL greater than 189 mg/dL Very high Performed By: #### C MP, TSH3, CBC, A1C WTH eA, LIPID #### [facility] [address] Triglyceride w/Reflex 105 mg/dL Normal 0-149 [facility] Comment on above: Result Comment: TRIG ATP III CLASSIFICATION TRIG less than 150 mg/dL Normal TRIG 150-199 mg/dL Borderline high TRIG 200-500 mg/dL High TRIG greater than 500 mg/dL Very high Standard traceable to the Center for Disease Conrtrol and Prevention (CDC) test method. Performed By: #### C MP, TSH3, CBC, A1C WTH eA, LIPID #### [facility] [address] VLDL CHOLESTEROL 21 mg/dL Normal [facility] Comment on above: Performed By: #### C MP, TSH3, CBC, A1C WTH eA, LIPID #### [facility] [address] [place] [address] [place] Lymphocytes [#/volume] in Bl ood by Automated countOrdered By: Jerome Gr on 10-06-2024 Lymphocytes (Bld) [#/Vol] 2.0 10*3/uL 1.00-4.8 [facility] Comment on above: Performed By: #### C MP, TSH3, CBC, A1C WTH eA, LIPID #### [facility] [address] [place] [address] [place] Lymphocytes/100 leukocytes i n Blood by Automated countOrdered By: Jerome Gr on 10-06-2024 Lymphocytes/100 WBC (Bld) 32.1 % . [facility] Comment on above: Performed By: #### C MP, TSH3, CBC, A1C WTH eA, LIPID #### [facility] [address] [place] [address] [place] MCH [Entitic mass] by Automa w[place] countOrdered By: Jerome Gr on 10-06-2024 MCH (RBC) [Entitic mass] 31.5 pg 24.7-34.3 [facility] Comment on above: Performed By: #### C MP, TSH3, CBC, A1C WTH eA, LIPID #### [facility] [address] MCHC Auto (RBC) [Mass/Vol]Or dered By: Jerome Gr on 10-06-2024 MCHC (RBC) [Mass/Vol] 33.5 g/dL 32.0-35.0 [facility] MCV [Entitic volume] by Auto mated countOrdered By: Jerome Gr on 10-06-2024 MCV (RBC) [Entitic vol] 94.1 fL 80-100 [facility] Comment on above: Performed By: #### C MP, TSH3, CBC, A1C WTH eA, LIPID #### [facility] [address] [place] [address] [place] Monocytes [#/volume] in Bloo d by Automated countOrdered By: Jerome Gr on 10-06-2024 Monocytes (Bld) [#/Vol] 0.5 10*3/uL 0.0-0.8 [facility] Comment on above: Performed By: #### C MP, TSH3, CBC, A1C WTH eA, LIPID #### [facility] [address] [place] [address] [place] Monocytes/100 leukocytes in Blood by Automated countOrdered By: Jerome Gr on 10-06-2024 Monocytes/100 WBC (Bld) 8.5 % . [facility] Comment on above: Performed By: #### C MP, TSH3, CBC, A1C WTH eA, LIPID #### [facility] [address] [place] [address] [place] Neutrophils [#/volume] in Bl ood by Automated countOrdered By: Jerome Gr on 10-06-2024 Neutrophils (Bld) [#/Vol] 3.4 10*3/uL 1.8-7.7 [facility] Comment on above: Performed By: #### C MP, TSH3, CBC, A1C WTH eA, LIPID #### [facility] [address] Neutrophils/100 leukocytes i n Blood by Automated countOrdered By: Jerome Gr on 10-06-2024 Neutrophils/100 WBC (Bld) 55.0 % . [facility] Comment on above: Performed By: #### C MP, TSH3, CBC, A1C WTH eA, LIPID #### [facility] [address] No Panel InformationOrdered By: Jerome Gr on 10-06-2024 Pharmacy Creatinine Clearance (Chem N/A [facility] Nucleated erythrocytes [Pres ence] in Blood by Automated countOrdered By: Jerome Gr on 10-06-2024 Nucleated RBC Auto Ql (Bld) 0.1 /100{WBC} 0-0.5 [facility] Platelet mean volume [Entiti c volume] in Blood by Automated countOrdered By: Jerome Gr on 10-06-2024 Platelet mean volume (Bld) [Entitic vol] 7.6 fL 6.3-10.7 [facility] Comment on above: Performed By: #### C MP, TSH3, CBC, A1C WTH eA, LIPID #### [facility] [address] [place] [address] [place] Platelets [#/volume] in Bloo d by Automated countOrdered By: Jerome Gr on 10-06-2024 Platelets (Bld) [#/Vol] 434 10*3/uL 150-450 [facility] Comment on above: Performed By: #### C MP, TSH3, CBC, A1C WTH eA, LIPID #### [facility] [address] Potassium [Moles/volume] in Serum or PlasmaOrdered By: Jerome Gr on 10-06-2024 Potassium [Moles/Vol] 4.0 mmol/L 3.5-5.1 [facility] Comment on above: Performed By: #### C MP, TSH3, CBC, A1C WTH eA, LIPID #### [facility] [address] Protein [Mass/volume] in Ser um or PlasmaOrdered By: Jerome Gr on 10-06-2024 Protein [Mass/Vol] 6.7 g/dL 6.4-8.9 [facility] Comment on above: Performed By: #### C MP, TSH3, CBC, A1C WTH eA, LIPID #### [facility] [address] Serum globulin measurement b y calculation (mass/volume)Ordered By: Jerome Gr on 10-06-2024 Globulin (S) [Mass/Vol] 2.7 g/dL [facility] Comment on above: Performed By: #### C MP, TSH3, CBC, A1C WTH eA, LIPID #### [facility] [address] Serum or plasma albumin/glob ulin mass ratioOrdered By: Jerome Gr on 10-06-2024 Albumin/Globulin [Mass ratio] 1.5 {ratio} [facility] Comment on above: Performed By: #### C MP, TSH3, CBC, A1C WTH eA, LIPID #### [facility] [address] Serum or plasma anion gap de terminationOrdered By: Jerome Gr on 10-06-2024 Anion gap [Moles/Vol] 11.1 mmol/L 6.0-15.0 [facility] Comment on above: Performed By: #### C MP, TSH3, CBC, A1C WTH eA, LIPID #### [facility] [address] Serum or plasma total choles terol/high density lipoprotein (HDL) cholesterol mass ratOrdered By: Jerome Gr on 10-06-2024 Cholesterol.total/Choles terol in HDL [Mass ratio] 3.0 {ratio} <5.0 [facility] Comment on above: Performed By: #### C MP, TSH3, CBC, A1C WTH eA, LIPID #### [facility] [address] Sodium [Moles/volume] in Ser um or PlasmaOrdered By: Jerome Gr on 10-06-2024 Sodium [Moles/Vol] 139 mmol/L 136-145 [facility] Comment on above: Performed By: #### C MP, TSH3, CBC, A1C WT eA, LIPID #### [facility] [address] Thyrotropin [Units/volume] i n Serum or PlasmaOrdered By: Jerome Gr on 10-06-2024 TSH Qn 0.56 m[IU]/L 0.45-5.33 [facility] Comment on above: Result Comment: PERF ORMED BY: [place] [address] PATHOLOGIST [employer] KELLY SORIA M.D. Performed By: #### C MP, TSH3, CBC, A1C WTH eA, LIPID #### [facility] [address] Triglyceride [Mass/volume] i n Serum or PlasmaOrdered By: Jerome Gr on 10-06-2024 Triglyceride [Mass/Vol] 105 mg/dL 0-149 [facility] Comment on above: TRIG ATP III CLASSIF ICATIONTRIG less than 150 mg/dL NormalTRIG 150-199 mg/dL Borderline highTRIG 200-500 mg/dL High TRIG greater than 500 mg/dL Very highStandard traceable to the Center for Disease Conrtrol and Prevention (CDC) test method. Urea nitrogen [Mass/volume] in Serum or PlasmaOrdered By: Jerome Gr on 10-06-2024 Urea nitrogen [Mass/Vol] 16 mg/dL - [facility] Comment on above: Performed By: #### C MP, TSH3, CBC, A1C WTH eA, LIPID #### [facility] [address] Alanine aminotransferase [En zymatic activity/volume] in Serum or PlasmaOrdered By: Jerome Gr on 10-02-2023 ALT [Catalytic activity/Vol] 11 U/L 7-52 [facility] Albumin [Mass/volume] in Ser um or Plasma by Bromocresol green (BCG) dye binding methoOrdered By: Jerome Gr on 10-02-2023 Albumin BCG dye [Mass/Vol] 4.4 g/dL 3.5-5.7 [facility] Alkaline phosphatase [Enzyma tic activity/volume] in Serum or PlasmaOrdered By: Jerome Gr on 10-02-2023 ALP [Catalytic activity/Vol] 62 U/L 34-104 [facility] Aspartate aminotransferase [ Enzymatic activity/volume] in Serum or PlasmaOrdered By: Jerome Gr on 10-02-2023 AST [Catalytic activity/Vol] 12 U/L Low 13-39 [facility] Basophils Auto (Bld) [#/Vol] Ordered By: Jerome Gr on 10-02-2023 Basophils (Bld) [#/Vol] 0.1 10*3/uL 0.0-0.2 [facility] Basophils/100 WBC Auto (Bld) Ordered By: Jerome Gr on 10-02-2023 Basophils/100 WBC (Bld) 1.4 % . [facility] Bilirubin.total [Mass/volume ] in Serum or PlasmaOrdered By: Jerome Gr on 10-02-2023 Bilirubin [Mass/Vol] 0.5 mg/dL 0.3-1.0 [facility] Calcium [Mass/volume] in Ser um or PlasmaOrdered By: Jerome Gr on 10-02-2023 Calcium [Mass/Vol] 9.5 mg/dL 8.6-10.3 [facility] Carbon dioxide, total [Moles /volume] in Serum or PlasmaOrdered By: Jerome Gr on 10-02-2023 CO2 [Moles/Vol] 30.4 mmol/L 21.0-31.0 [facility] Chloride [Moles/volume] in [place] or PlasmaOrdered By: Jerome Gr on 10-02-2023 Chloride [Moles/Vol] 104 mmol/L 98-107 [facility] Cholesterol [Mass/volume] in Serum or PlasmaOrdered By: Jerome Gr on 10-02-2023 Cholesterol [Mass/Vol] 227 mg/dL High 140-200 [facility] Comment on above: Chol less than 200 m g/dl low riskChol 201-239 mg/dl borderline riskChol 240 mg/dl and greater high risk Cholesterol in LDL Calc [Mas s/Vol]Ordered By: Jerome Gr on 10-02-2023 Cholesterol in LDL [Mass/Vol] 130 mg/dL High 0-100 [facility] Comment on above: LDL ATP III CLASSIFI CATIONLDL less than 100 mg/dL OptimalLDL 100-129 mg/dL Near or above optimalLDL 130-159 mg/dL Borderline highLDL 160-189 mg/dL HighLDL greater than 189 mg/dL Very high Cholesterol in VLDL Calc [Ma ss/Vol]Ordered By: Jerome Gr on 10-02-2023 Cholesterol in VLDL [Mass/Vol] 20 mg/dL [facility] Creatinine [Mass/volume] in Serum or PlasmaOrdered By: Jerome Gr on 10-02-2023 Creatinine [Mass/Vol] 0.87 mg/dL 0.60-1.20 [facility] Eosinophils Auto (Bld) [#/Vo l]Ordered By: Jerome Gr on 10-02-2023 Eosinophils (Bld) [#/Vol] 0.1 10*3/uL 0.0-0.45 [facility] Eosinophils/100 WBC Auto (Bl d)Ordered By: Jerome Gr on 10-02-2023 Eosinophils/100 WBC (Bld) 2.4 % . [facility] Erythrocyte distribution wid th Auto (RBC) [Ratio]Ordered By: Jerome Gr on 10-02-2023 Erythrocyte distribution width (RBC) [Ratio] 13.9 % 11.9-15.3 [facility] Globulin Calc (S) [Mass/Vol] Ordered By: Jerome Gr on 10-02-2023 Globulin (S) [Mass/Vol] 2.7 g/dL [facility] Glucose [Mass/volume] in Ser um or PlasmaOrdered By: Jreome Gr on 10-02-2023 Glucose [Mass/Vol] 99 mg/dL 70-100 [facility] Comment on above: ADA recommended refe rence rangeRandom Glucose Reference Range is dependent on time and content of last meal. Glucose of more than 200 mg/dL in a nonstressed, ambulatory subject supports the diagnosis of Diabetes Mellitus. Glucose mean value [Mass/vol ume] in Blood Estimated from glycated hemoglobinOrdered By: Jerome Gr on 10-02-2023 Average glucose Estimated from glycated hemoglobin (Bld) [Mass/Vol] 126 mg/dL [facility] Hematocrit Auto (Bld) [Volum e fraction]Ordered By: Jerome Gr on 10-02-2023 Hematocrit (Bld) [Volume fraction] 35.8 % 34.0-46.4 [facility] Hemoglobin A1c percentageOrd ered By: Jerome Gr on 10-02-2023 HbA1c (Bld) [Mass fraction] 6.0 % High 4.3-5.6 [facility] Comment on above: Increased risk for d iabetes: 5.7 - 6.4diabetes: >6.4glycemic control for adults with diabetes: <7.0 Hemoglobin [Mass/volume] in BloodOrdered By: Jerome Gr on 10-02-2023 Hemoglobin (Bld) [Mass/Vol] 11.8 g/dL 11.8-15.4 [facility] Leukocytes [#/volume] correc [place] for nucleated erythrocytes in Blood by Automated counOrdered By: Jerome Gr on 10-02-2023 WBC corrected for nucl RBC Auto (Bld) [#/Vol] 5.2 10*3/uL 3.8-11.6 [facility] Lymphocytes Auto (Bld) [#/Vo l]Ordered By: Jerome Gr on 10-02-2023 Lymphocytes (Bld) [#/Vol] 1.9 10*3/uL 1.00-4.8 [facility] Lymphocytes/100 WBC Auto (Bl d)Ordered By: Jerome Gr on 10-02-2023 Lymphocytes/100 WBC (Bld) 35.7 % . [facility] MCH Auto (RBC) [Entitic mass ]Ordered By: Jerome Gr on 10-02-2023 MCH (RBC) [Entitic mass] 31.1 pg 24.7-34.3 [facility] MCHC Auto (RBC) [Mass/Vol]Or dered By: Jerome Gr on 10-02-2023 MCHC (RBC) [Mass/Vol] 33.1 g/dL 32.0-35.0 [facility] MCV Auto (RBC) [Entitic vol] Ordered By: Jerome Gr on 10-02-2023 MCV (RBC) [Entitic vol] 94.1 fL 80-100 [facility] Monocytes Auto (Bld) [#/Vol] Ordered By: Jerome Gr on 10-02-2023 Monocytes (Bld) [#/Vol] 0.4 10*3/uL 0.0-0.8 [facility] Monocytes/100 WBC Auto (Bld) Ordered By: Jerome Gr on 10-02-2023 Monocytes/100 WBC (Bld) 8.5 % . [facility] Neutrophils Auto (Bld) [#/Vo l]Ordered By: Jerome Gr on 10-02-2023 Neutrophils (Bld) [#/Vol] 2.7 10*3/uL 1.8-7.7 [facility] Neutrophils/100 WBC Auto (Bl d)Ordered By: Jerome Gr on 10-02-2023 Neutrophils/100 WBC (Bld) 52.0 % . [facility] No Panel InformationOrdered By: Jerome Gr on 10-02-2023 Estimated GFR (CKD-EPI) > 60.0 mL/Min [facility] Creatinine Clearance (Chem N/A [facility] Nucleated erythrocytes [Pres ence] in Blood by Automated countOrdered By: Jerome Gr on 10-02-2023 Nucleated RBC Auto Ql (Bld) 0.2 /100{WBC} 0-0.5 [facility] Platelet mean volume Auto (B ld) [Entitic vol]Ordered By: Jerome Gr on 10-02-2023 Platelet mean volume (Bld) [Entitic vol] 8.3 fL 6.3-10.7 [facility] Platelets Auto (Bld) [#/Vol] Ordered By: Jerome Gr on 10-02-2023 Platelets (Bld) [#/Vol] 301 10*3/uL 150-450 [facility] Potassium [Moles/volume] in Serum or PlasmaOrdered By: Jerome Gr on 10-02-2023 Potassium [Moles/Vol] 3.7 mmol/L 3.5-5.1 [facility] Protein [Mass/volume] in Ser um or PlasmaOrdered By: Jerome Gr on 10-02-2023 Protein [Mass/Vol] 7.1 g/dL 6.4-8.9 [facility] RBC Auto (Bld) [#/Vol]Ordere d By: Jerome Gr on 10-02-2023 RBC (Bld) [#/Vol] 3.80 10*6/uL 3.60-5.00 [facility] Serum or plasma albumin/glob ulin mass ratioOrdered By: Jerome Gr on 10-02-2023 Albumin/Globulin [Mass ratio] 1.6 {ratio} [facility] Serum or plasma anion gap de terminationOrdered By: Jeroem Gr on 10-02-2023 Anion gap [Moles/Vol] 11.3 mmol/L 6.0-15.0 [facility] Serum or plasma high density lipoprotein (HDL) cholesterol measurementOrdered By: Jerome Gr on 10-02-2023 Cholesterol in HDL [Mass/Vol] 77 mg/dL 23-92 [facility] Comment on above: HDL CHOL ATP-III CLA SSIFICATION Cardiovascular RiskHDL > or equal to 60 mg/dL LOWHDL < 40 mg/dL HIGH Serum or plasma total choles terol/high density lipoprotein (HDL) cholesterol mass ratOrdered By: Jerome Gr on 10-02-2023 Cholesterol.total/Choles terol in HDL [Mass ratio] 2.9 {ratio} <5.0 [facility] Sodium [Moles/volume] in Ser um or PlasmaOrdered By: Jerome Gr on 10-02-2023 Sodium [Moles/Vol] 142 mmol/L 136-145 [facility] Thyrotropin [Units/volume] i n Serum or PlasmaOrdered By: Jerome Gr on 10-02-2023 TSH Qn 0.57 m[IU]/L 0.45-5.33 [facility] Thyroxine (T4) free [Mass/vo lume] in Serum or PlasmaOrdered By: Jerome Gr on 10-02-2023 Free T4 [Mass/Vol] 1.05 ng/dL 0.61-1.12 [facility] Triglyceride [Mass/volume] i n Serum or PlasmaOrdered By: Jerome Gr on 10-02-2023 Triglyceride [Mass/Vol] 102 mg/dL 0-149 [facility] Comment on above: TRIG ATP III CLASSIF ICATIONTRIG less than 150 mg/dL NormalTRIG 150-199 mg/dL Borderline highTRIG 200-500 mg/dL High TRIG greater than 500 mg/dL Very highStandard traceable to the Center for Disease Conrtrol and Prevention (CDC) test method. Urea nitrogen [Mass/volume] in Serum or PlasmaOrdered By: Jerome Gr on 10-02-2023 Urea nitrogen [Mass/Vol] 26 mg/dL High 7-25 [facility] WBC Auto (Bld) [#/Vol]Ordere d By: Jerome Gr on 10-02-2023 WBC (Bld) [#/Vol] 5.2 10*3/uL 3.8-11.6 [facility] Alanine aminotransferase [En zymatic activity/volume] in Serum or PlasmaOrdered By: Jerome Gr on 09-26-2022 ALT [Catalytic activity/Vol] 12 U/L 7-52 [facility] Albumin [Mass/volume] in Ser um or Plasma by Bromocresol green (BCG) dye binding methoOrdered By: Jerome Gr on 09-26-2022 Albumin BCG dye [Mass/Vol] 4.2 g/dL 3.5-5.7 [facility] Alkaline phosphatase [Enzyma tic activity/volume] in Serum or PlasmaOrdered By: Jerome Gr on 09-26-2022 ALP [Catalytic activity/Vol] 65 U/L 34-104 [facility] Aspartate aminotransferase [ Enzymatic activity/volume] in Serum or PlasmaOrdered By: Jerome Gr on 09-26-2022 AST [Catalytic activity/Vol] 14 U/L 13-39 [facility] Basophils Auto (Bld) [#/Vol] Ordered By: Jerome Gr on 09-26-2022 Basophils (Bld) [#/Vol] 0.1 10*3/uL 0.0-0.2 [facility] Basophils/100 WBC Auto (Bld) Ordered By: Jerome Gr on 09-26-2022 Basophils/100 WBC (Bld) 1.4 % . [facility] Bilirubin.total [Mass/volume ] in Serum or PlasmaOrdered By: Jerome Gr on 09-26-2022 Bilirubin [Mass/Vol] 0.5 mg/dL 0.3-1.0 [facility] Calcium [Mass/volume] in Ser um or PlasmaOrdered By: Jerome Gr on 09-26-2022 Calcium [Mass/Vol] 9.4 mg/dL 8.6-10.3 [facility] Carbon dioxide, total [Moles /volume] in Serum or PlasmaOrdered By: Jerome Gr on 09-26-2022 CO2 [Moles/Vol] 28.3 mmol/L 21.0-31.0 [facility] Chloride [Moles/volume] in [place] or PlasmaOrdered By: Jerome Gr on 09-26-2022 Chloride [Moles/Vol] 107 mmol/L 98-107 [facility] Cholesterol [Mass/volume] in Serum or PlasmaOrdered By: Jerome Gr on 09-26-2022 Cholesterol [Mass/Vol] 197 mg/dL 140-200 [facility] Comment on above: Chol less than 200 m g/dl low riskChol 201-239 mg/dl borderline riskChol 240 mg/dl and greater high risk Cholesterol in LDL Calc [Mas s/Vol]Ordered By: Jerome Gr on 09-26-2022 Cholesterol in LDL [Mass/Vol] 102 mg/dL 0-100 [facility] Comment on above: LDL ATP III CLASSIFI CATIONLDL less than 100 mg/dL OptimalLDL 100-129 mg/dL Near or above optimalLDL 130-159 mg/dL Borderline highLDL 160-189 mg/dL HighLDL greater than 189 mg/dL Very high Cholesterol in VLDL Calc [Ma ss/Vol]Ordered By: Jerome Gr on 09-26-2022 Cholesterol in VLDL [Mass/Vol] 13 mg/dL [facility] Creatinine [Mass/volume] in Serum or PlasmaOrdered By: Jerome Gr on 09-26-2022 Creatinine [Mass/Vol] 0.73 mg/dL 0.60-1.20 [facility] Eosinophils Auto (Bld) [#/Vo l]Ordered By: Jerome Gr on 09-26-2022 Eosinophils (Bld) [#/Vol] 0.3 10*3/uL 0.0-0.45 [facility] Eosinophils/100 WBC Auto (Bl d)Ordered By: Jerome Gr on 09-26-2022 Eosinophils/100 WBC (Bld) 5.7 % . [facility] Erythrocyte distribution wid th Auto (RBC) [Ratio]Ordered By: Jerome Gr on 09-26-2022 Erythrocyte distribution width (RBC) [Ratio] 14.1 % 11.9-15.3 [facility] Ferritin [Mass/volume] in Se rum or PlasmaOrdered By: Jerome Gr on 09-26-2022 Ferritin [Mass/Vol] 24.5 ng/mL 11.0-306.8 [facility] Globulin Calc (S) [Mass/Vol] Ordered By: Jerome Gr on 09-26-2022 Globulin (S) [Mass/Vol] 2.7 g/dL [facility] Glucose [Mass/volume] in Ser um or PlasmaOrdered By: Jerome Gr on 09-26-2022 Glucose [Mass/Vol] 92 mg/dL 70-100 [facility] Comment on above: ADA recommended refe rence rangeRandom Glucose Reference Range is dependent on time and content of last meal. Glucose of more than 200 mg/dL in a nonstressed, ambulatory subject supports the diagnosis of Diabetes Mellitus. Glucose mean value [Mass/vol ume] in Blood Estimated from glycated hemoglobinOrdered By: Jerome Gr on 09-26-2022 Average glucose Estimated from glycated hemoglobin (Bld) [Mass/Vol] 120 mg/dL [facility] Hematocrit Auto (Bld) [Volum e fraction]Ordered By: Jerome Gr on 09-26-2022 Hematocrit (Bld) [Volume fraction] 35.4 % 34.0-46.4 [facility] Hemoglobin A1c percentageOrd ered By: Jerome Gr on 09-26-2022 HbA1c (Bld) [Mass fraction] 5.8 % 4.3-5.6 [facility] Comment on above: Increased risk for d iabetes: 5.7 - 6.4diabetes: >6.4glycemic control for adults with diabetes: <7.0 Hemoglobin [Mass/volume] in BloodOrdered By: Jerome Gr on 09-26-2022 Hemoglobin (Bld) [Mass/Vol] 11.5 g/dL 11.8-15.4 [facility] Iron [Mass/volume] in Serum or PlasmaOrdered By: Jerome Gr on 09-26-2022 Iron [Mass/Vol] 76 ug/dL 50-212 [facility] Iron binding capacity [Mass/ volume] in Serum or PlasmaOrdered By: Jerome Gr on 09-26-2022 Iron binding capacity [Mass/Vol] 343 ug/dL 255-450 [facility] Iron saturation [Mass Fracti on] in Serum or PlasmaOrdered By: Jerome Gr on 09-26-2022 Iron saturation [Mass fraction] 22.2 % 20-50 [facility] Leukocytes [#/volume] correc [place] for nucleated erythrocytes in Blood by Automated counOrdered By: Jerome Gr on 09-26-2022 WBC corrected for nucl RBC Auto (Bld) [#/Vol] 5.3 10*3/uL 3.8-11.6 [facility] Lymphocytes Auto (Bld) [#/Vo l]Ordered By: Jerome Gr on 09-26-2022 Lymphocytes (Bld) [#/Vol] 1.9 10*3/uL 1.00-4.8 [facility] Lymphocytes/100 WBC Auto (Bl d)Ordered By: Jerome Gr on 09-26-2022 Lymphocytes/100 WBC (Bld) 36.5 % . [facility] MCH Auto (RBC) [Entitic mass ]Ordered By: Jerome Gr on 09-26-2022 MCH (RBC) [Entitic mass] 31.0 pg 24.7-34.3 [facility] MCHC Auto (RBC) [Mass/Vol]Or dered By: Jerome Gr on 09-26-2022 MCHC (RBC) [Mass/Vol] 32.5 g/dL 32.0-35.0 [facility] MCV Auto (RBC) [Entitic vol] Ordered By: Jerome Gr on 09-26-2022 MCV (RBC) [Entitic vol] 95.3 fL 80-100 [facility] Monocytes Auto (Bld) [#/Vol] Ordered By: Jerome Gr on 09-26-2022 Monocytes (Bld) [#/Vol] 0.5 10*3/uL 0.0-0.8 [facility] Monocytes/100 WBC Auto (Bld) Ordered By: Jerome Gr on 09-26-2022 Monocytes/100 WBC (Bld) 9.3 % . [facility] Neutrophils Auto (Bld) [#/Vo l]Ordered By: Jerome Gr on 09-26-2022 Neutrophils (Bld) [#/Vol] 2.5 10*3/uL 1.8-7.7 [facility] Neutrophils/100 WBC Auto (Bl d)Ordered By: Jerome Gr on 09-26-2022 Neutrophils/100 WBC (Bld) 47.1 % . [facility] No Panel InformationOrdered By: Jerome Gr on 09-26-2022 Estimated GFR (CKD-EPI) > 60.0 mL/Min [facility] Pharmacy Creatinine Clearance (Chem N/A [facility] Nucleated erythrocytes [Pres ence] in Blood by Automated countOrdered By: Jerome Gr on 09-26-2022 Nucleated RBC Auto Ql (Bld) 0.1 /100{WBC} 0-0.5 [facility] Platelet mean volume Auto (B ld) [Entitic vol]Ordered By: Jerome Gr on 09-26-2022 Platelet mean volume (Bld) [Entitic vol] 8.2 fL 6.3-10.7 [facility] Platelets Auto (Bld) [#/Vol] Ordered By: Jerome Gr on 09-26-2022 Platelets (Bld) [#/Vol] 303 10*3/uL 150-450 [facility] Potassium [Moles/volume] in Serum or PlasmaOrdered By: eJrome Gr on 09-26-2022 Potassium [Moles/Vol] 3.7 mmol/L 3.5-5.1 [facility] Protein [Mass/volume] in Ser um or PlasmaOrdered By: Jerome Gr on 09-26-2022 Protein [Mass/Vol] 6.9 g/dL 6.4-8.9 [facility] RBC Auto (Bld) [#/Vol]Ordere d By: Jerome Gr on 09-26-2022 RBC (Bld) [#/Vol] 3.72 10*6/uL 3.60-5.00 [facility] Serum or plasma albumin/glob ulin mass ratioOrdered By: Jerome Gr on 09-26-2022 Albumin/Globulin [Mass ratio] 1.6 {ratio} [facility] Serum or plasma anion gap de terminationOrdered By: Jerome Gr on 09-26-2022 Anion gap [Moles/Vol] 10.4 mmol/L 6.0-15.0 [facility] Serum or plasma high density lipoprotein (HDL) cholesterol measurementOrdered By: Jerome Gr on 09-26-2022 Cholesterol in HDL [Mass/Vol] 81 mg/dL 23-92 [facility] Comment on above: HDL CHOL ATP-III CLA SSIFICATION Cardiovascular RiskHDL > or equal to 60 mg/dL LOWHDL < 40 mg/dL HIGH Serum or plasma total choles terol/high density lipoprotein (HDL) cholesterol mass ratOrdered By: Jerome Gr on 09-26-2022 Cholesterol.total/Choles terol in HDL [Mass ratio] 2.4 {ratio} <5.0 [facility] Sodium [Moles/volume] in Ser um or PlasmaOrdered By: Jerome Gr on 09-26-2022 Sodium [Moles/Vol] 142 mmol/L 136-145 [facility] Thyrotropin [Units/volume] i n Serum or PlasmaOrdered By: Jerome Gr on 09-26-2022 TSH Qn 3.30 m[IU]/L 0.45-5.33 [facility] Thyroxine (T4) free [Mass/vo lume] in Serum or PlasmaOrdered By: Jerome Gr on 09-26-2022 Free T4 [Mass/Vol] 0.83 ng/dL 0.61-1.12 [facility] Transferrin [Mass/volume] in Serum or PlasmaOrdered By: Jerome Gr on 09-26-2022 Transferrin [Mass/Vol] 245 mg/dL 203-362 [facility] Triglyceride [Mass/volume] i n Serum or PlasmaOrdered By: Jerome Gr on 09-26-2022 Triglyceride [Mass/Vol] 68 mg/dL 0-149 [facility] Comment on above: TRIG ATP III CLASSIF ICATIONTRIG less than 150 mg/dL NormalTRIG 150-199 mg/dL Borderline highTRIG 200-500 mg/dL High TRIG greater than 500 mg/dL Very highStandard traceable to the Center for Disease Conrtrol and Prevention (CDC) test method. Urea nitrogen [Mass/volume] in Serum or PlasmaOrdered By: Jerome Gr on 09-26-2022 Urea nitrogen [Mass/Vol] 23 mg/dL 7-25 [facility] WBC Auto (Bld) [#/Vol]Ordere d By: Jerome Gr on 09-26-2022 WBC (Bld) [#/Vol] 5.3 10*3/uL 3.8-11.6 [facility] Automated erythrocytes count in urine sediment (number/area)Ordered By: Nikole Dunbar on 06-22-2022 RBC Auto (Urine sed) [#/Area] 0-1 [HPF] 0-4 [facility] Automated leukocytes count i n urine sediment (number/area)Ordered By: Nikole Dunbar on 06-22-2022 WBC Auto (Urine sed) [#/Area] 0-1 [HPF] 0-4 [facility] Bilirubin Auto test strip Ql (U)Ordered By: Nikole Dunbar on 06-22-2022 Bilirubin Ql (U) Negative Negative [facility] Ketones Auto test strip (U) [Mass/Vol]Ordered By: Nikole Dunbar on 06-22-2022 Ketones (U) [Mass/Vol] Negative Negative [facility] - UrinalysisOrder ed By: Nikole Dunbar on 06-22-2022 Hyaline casts LM Ql (Urine sed) None seen [LPF] 0-8 [facility] Protein Auto test strip (U) [Mass/Vol]Ordered By: Nikole Dunbar on 06-22-2022 Protein (U) [Mass/Vol] Negative Negative [facility] Squamous epithelial cells de tection in urine sediment by light microscopyOrdered By: Nikole Dunbar on 06-22-2022 Epithelial cells.squamous LM Ql (Urine sed) 0-1 [HPF] 0-2 [facility] Urine appearanceOrdered By: Nikole Dunbar on 06-22-2022 Appearance (U) Clear Clear [facility] Urine bacteria detection by automated methodOrdered By: Nikole Dunbar on 06-22-2022 Bacteria Auto Ql (U) None seen None Seen [facility] Urine colorOrdered By: Maryan Dunbar on 06-22-2022 Color (U) Yellow Yellow [facility] Urine glucose measurement by automated test strip (mass/volume)Ordered By: Nikole Dunbar on 06-22-2022 Glucose Auto test strip (U) [Mass/Vol] Normal mg/dL Normal [facility] Urine hemoglobin detection b y automated test stripOrdered By: Nikole Dunbar on 06-22-2022 Hemoglobin Auto test strip Ql (U) Negative Negative [facility] Urine leukocyte esterase det ection by automated test stripOrdered By: Nikole Dunbar on 06-22-2022 Leukocyte esterase Auto test strip Ql (U) 1+ Negative [facility] Urine nitrite detection by a utomated test stripOrdered By: Nikole Dunbar on 06-22-2022 Nitrite Auto test strip Ql (U) Negative Negative [facility] Urobilinogen Auto test strip (U) [Mass/Vol]Ordered By: Nikole Dunbar on 06-22-2022 Urobilinogen (U) [Mass/Vol] Normal mg/dL Normal [facility] pH Auto test strip (U)Ordere d By: Nikole Dunbar on 06-22-2022 pH (U) 1.010 [pH] 1.001-1.030 [facility] pH (U) 6.5 [pH] 5.0-9.0 [facility] Creatinine and Glomerular fi ltration rate.predicted panel (S/P/Bld)Ordered By: Jerome Gr on 09-22-2021 Creatinine [Mass/Vol] 0.91 mg/dL 0.44-1.03 [facility] Estimated glomerular filtrat ion rate (GFR) non- AmericanOrdered By: Jerome Gr on 09-22-2021 GFR/1.73 sq M.predicted among non-blacks MDRD (S/P/Bld) [Vol rate/Area] 59 mL/Min [facility] No Panel InformationOrdered By: Jerome Gr on 09-22-2021 Estimated GFR () > 60 mL/Min [facility] Comment on above: GFR estimated refere nce range: According to KDOQI guidelines, <60 ml/min/1.73m2 is sufficient to diagnose a patient with chronic kidney disease. Pharmacy Creatinine Clearance (Chem N/A [facility] Serum or plasma urea nitroge n measurement (mass/volume)Ordered By: Jerome Gr on 09-22-2021 Urea nitrogen [Mass/Vol] 18 mg/dL 11-04 [facility] Albumin [Mass/volume] in Ser um or PlasmaOrdered By: Jerome Gr on 07-29-2021 Albumin [Mass/Vol] 4.0 g/dL 3.2-5.5 [facility] Basophils Auto (Bld) [#/Vol] Ordered By: Jerome Gr on 07-29-2021 Basophils (Bld) [#/Vol] 0.1 10*3/uL 0.0-0.2 [facility] Basophils/100 WBC Auto (Bld) Ordered By: Jerome Gr on 07-29-2021 Basophils/100 WBC (Bld) 1.1 % . [facility] Blood hemoglobin measurement (mass/volume)Ordered By: Jerome Gr on 07-29-2021 Hemoglobin (Bld) [Mass/Vol] 12.3 g/dL 11.8-15.4 [facility] Blood leukocytes automated c ount (number/volume)Ordered By: Jerome Gr on 07-29-2021 WBC (Bld) [#/Vol] 6.6 10*3/uL 4.5-11.0 [facility] CT biopsyOrdered By: Jerome gilmore on 07-29-2021 Transferrin [Mass/Vol] 240 mg/dL 180-380 [facility] Cholesterol [Mass/volume] in Serum or PlasmaOrdered By: Jerome Gr on 07-29-2021 Cholesterol [Mass/Vol] 209 mg/dL 140-200 [facility] Comment on above: Chol less than 200 m g/dl low risk Chol 201-239 mg/dl borderline risk Chol 240 mg/dl and greater high risk Cholesterol in LDL Calc [Mas s/Vol]Ordered By: Jerome Gr on 07-29-2021 Cholesterol in LDL [Mass/Vol] 112 mg/dL 0-100 [facility] Comment on above: LDL ATP III CLASSIFI CATION LDL less than 100 mg/dL Optimal LDL 100-129 mg/dL Near or above optimal LDL 130-159 mg/dL Borderline high LDL 160-189 mg/dL High LDL greater than 189 mg/dL Very high Cholesterol in VLDL Calc [Ma ss/Vol]Ordered By: Jerome Gr on 07-29-2021 Cholesterol in VLDL [Mass/Vol] 22 mg/dL [facility] Creatinine and Glomerular fi ltration rate.predicted panel (S/P/Bld)Ordered By: Jerome Gr on 07-29-2021 Creatinine [Mass/Vol] 0.87 mg/dL 0.44-1.03 [facility] Eosinophils Auto (Bld) [#/Vo l]Ordered By: Jerome Gr on 07-29-2021 Eosinophils (Bld) [#/Vol] 0.4 10*3/uL 0.0-0.45 [facility] Eosinophils/100 WBC Auto (Bl d)Ordered By: Jerome Gr on 07-29-2021 Eosinophils/100 WBC (Bld) 5.6 % . [facility] Erythrocyte distribution wid th Auto (RBC) [Ratio]Ordered By: Jerome Gr on 07-29-2021 Erythrocyte distribution width (RBC) [Ratio] 15.3 % 11.9-15.3 [facility] Estimated glomerular filtrat ion rate (GFR) non- AmericanOrdered By: Jerome Gr on 07-29-2021 GFR/1.73 sq M.predicted among non-blacks MDRD (S/P/Bld) [Vol rate/Area] > 60 mL/Min [facility] Ferritin [Mass/volume] in Se rum or PlasmaOrdered By: Jerome Gr on 07-29-2021 Ferritin [Mass/Vol] 44.3 ng/mL 11-306.8 [facility] Globulin Calc (S) [Mass/Vol] Ordered By: Jerome Gr on 07-29-2021 Globulin (S) [Mass/Vol] 2.8 g/dL [facility] Glucose mean value [Mass/vol ume] in Blood Estimated from glycated hemoglobinOrdered By: Jerome Gr on 07-29-2021 Average glucose Estimated from glycated hemoglobin (Bld) [Mass/Vol] 128 mg/dL [facility] Hematocrit Auto (Bld) [Volum e fraction]Ordered By: Jerome Gr on 07-29-2021 Hematocrit (Bld) [Volume fraction] 37.3 % 34.0-46.4 [facility] Hemoglobin A1c percentageOrd ered By: Jerome Gr on 07-29-2021 HbA1c (Bld) [Mass fraction] 6.1 % 4.3-5.6 [facility] Comment on above: Increased risk for d iabetes: 5.7 - 6.4 diabetes: >6.4 glycemic control for adults with diabetes: <7.0 Iron [Mass/volume] in Serum or PlasmaOrdered By: Jerome Gr on 07-29-2021 Iron [Mass/Vol] 54 ug/dL 40-150 [facility] Iron binding capacity [Mass/ volume] in Serum or PlasmaOrdered By: Jerome Gr on 07-29-2021 Iron binding capacity [Mass/Vol] 336 ug/dL 255-450 [facility] Iron saturation [Mass Fracti on] in Serum or PlasmaOrdered By: Jerome Gr on 07-29-2021 Iron saturation [Mass fraction] 16.0 % 20-50 [facility] Laboratory - Chemistry and C hemistry - challengeOrdered By: Jerome Gr on 07-29-2021 Cobalamin (Vitamin B12) [Mass/Vol] 368 pg/mL 180-914 [facility] - Hematology and Cell countsOrdered By: Jerome Gr on 07-29-2021 Nucleated RBC/100 WBC (Bld) [Ratio] 0.0 % 0-0.5 [facility] Lymphocytes Auto (Bld) [#/Vo l]Ordered By: Jerome Gr on 07-29-2021 Lymphocytes (Bld) [#/Vol] 2.4 10*3/uL 1.00-4.8 [facility] Lymphocytes/100 WBC Auto (Bl d)Ordered By: Jerome Gr on 07-29-2021 Lymphocytes/100 WBC (Bld) 35.5 % . [facility] MCH Auto (RBC) [Entitic mass ]Ordered By: Jerome Gr on 07-29-2021 MCH (RBC) [Entitic mass] 30.6 pg 24.7-34.3 [facility] MCHC Auto (RBC) [Mass/Vol]Or dered By: Jerome Gr on 07-29-2021 MCHC (RBC) [Mass/Vol] 33.1 g/dL 32.0-35.0 [facility] MCV Auto (RBC) [Entitic vol] Ordered By: Jerome Gr on 07-29-2021 MCV (RBC) [Entitic vol] 92.4 fL 80-100 [facility] Monocytes Auto (Bld) [#/Vol] Ordered By: Jerome Gr on 07-29-2021 Monocytes (Bld) [#/Vol] 0.7 10*3/uL 0.0-0.8 [facility] Monocytes/100 WBC Auto (Bld) Ordered By: Jerome Gr on 07-29-2021 Monocytes/100 WBC (Bld) 10.4 % . [facility] Neutrophils Auto (Bld) [#/Vo l]Ordered By: Jerome Gr on 07-29-2021 Neutrophils (Bld) [#/Vol] 3.1 10*3/uL 1.8-7.7 [facility] Neutrophils/100 WBC Auto (Bl d)Ordered By: Jerome Gr on 07-29-2021 Neutrophils/100 WBC (Bld) 47.4 % . [facility] No Panel InformationOrdered By: Jerome Gr on 07-29-2021 Estimated GFR () > 60 mL/Min [facility] Comment on above: GFR estimated refere nce range: According to KDOQI guidelines, <60 ml/min/1.73m2 is sufficient to diagnose a patient with chronic kidney disease. Pharmacy Creatinine Clearance (Chem N/A [facility] Platelet mean volume Auto (B ld) [Entitic vol]Ordered By: Jerome Gr on 07-29-2021 Platelet mean volume (Bld) [Entitic vol] 8.6 fL 6.3-10.7 [facility] Platelets Auto (Bld) [#/Vol] Ordered By: Jerome Gr on 07-29-2021 Platelets (Bld) [#/Vol] 376 10*3/uL 150-450 [facility] Protein [Mass/volume] in Ser um or PlasmaOrdered By: Jerome Gr on 07-29-2021 Protein [Mass/Vol] 6.8 g/dL 6.1-7.9 [facility] RBC Auto (Bld) [#/Vol]Ordere d By: Jerome Gr on 07-29-2021 RBC (Bld) [#/Vol] 4.03 10*6/uL 3.60-5.00 [facility] Serum or plasma alanine oshea otransferase measurement without P-5'-P (enzymatic activiOrdered By: Jerome Gr on 07-29-2021 ALT No additional P-5'-P [Catalytic activity/Vol] 14 U/L 10-60 [facility] Serum or plasma albumin/glob ulin mass ratioOrdered By: Jerome Gr on 07-29-2021 Albumin/Globulin [Mass ratio] 1.4 {ratio} [facility] Serum or plasma alkaline amita sphatase measurement (enzymatic activity/volume)Ordered By: Jerome Gr on 07-29-2021 ALP [Catalytic activity/Vol] 55 U/L 32-92 [facility] Serum or plasma aspartate am inotransferase measurement (enzymatic activity/volume)Ordered By: Jerome Gr on 07-29-2021 AST [Catalytic activity/Vol] 16 U/L 10-42 [facility] Serum or plasma calcium trixie urement (mass/volume)Ordered By: Jerome Gr on 07-29-2021 Calcium [Mass/Vol] 9.7 mg/dL 8.2-10.2 [facility] Serum or plasma chloride analia surement (moles/volume)Ordered By: Jerome Gr on 07-29-2021 Chloride [Moles/Vol] 104 mmol/L 95-114 [facility] Serum or plasma glucose trixie urement (mass/volume)Ordered By: Jerome Gr on 07-29-2021 Glucose [Mass/Vol] 113 mg/dL 70-100 [facility] Comment on above: ADA recommended refe rence range Random Glucose Reference Range is dependent on time and content of last meal. Glucose of more than 200 mg/dL in a nonstressed, ambulatory subject supports the diagnosis of Diabetes Mellitus. Serum or plasma high density lipoprotein (HDL) cholesterol measurementOrdered By: Jerome Gr on 07-29-2021 Cholesterol in HDL [Mass/Vol] 74 mg/dL 35-85 [facility] Comment on above: HDL CHOL ATP-III CLA SSIFICATION Cardiovascular Risk HDL > or equal to 60 mg/dL LOW HDL < 40 mg/dL HIGH Serum or plasma potassium me asurement (moles/volume)Ordered By: Jerome Gr on 07-29-2021 Potassium [Moles/Vol] 4.1 mmol/L 3.5-5.1 [facility] Serum or plasma sodium measu rement (moles/volume)Ordered By: Jerome Gr on 07-29-2021 Sodium [Moles/Vol] 141 mmol/L 136-146 [facility] Serum or plasma total biliru bin measurement (mass/volume)Ordered By: Jerome Gr on 07-29-2021 Bilirubin [Mass/Vol] 0.6 mg/dL 0.3-1.2 [facility] Serum or plasma total carbon dioxide measurement (moles/volume)Ordered By: Jerome Gr on 07-29-2021 CO2 [Moles/Vol] 25.4 mmol/L 22.0-30.0 [facility] Serum or plasma total choles terol/high density lipoprotein (HDL) cholesterol mass ratOrdered By: Jerome Gr on 07-29-2021 Cholesterol.total/Choles terol in HDL [Mass ratio] 2.8 {ratio} <5.0 [facility] Serum or plasma urea nitroge n measurement (mass/volume)Ordered By: Jerome Gr on 07-29-2021 Urea nitrogen [Mass/Vol] 22 mg/dL 11-04 [facility] TSH DL <= 0.005 mIU/L QnOrde red By: Jerome Gr on 07-29-2021 TSH Qn 0.20 m[IU]/L 0.45-5.33 [facility] Thyroxine (T4) free [Mass/vo lume] in Serum or PlasmaOrdered By: Jerome Gr on 07-29-2021 Free T4 [Mass/Vol] 2.09 ng/dL 0.61-1.12 [facility] Triglyceride [Mass/volume] i n Serum or PlasmaOrdered By: Jerome Gr on 07-29-2021 Triglyceride [Mass/Vol] 113 mg/dL 35-149 [facility] Comment on above: TRIG ATP III CLASSIF ICATION TRIG less than 150 mg/dL Normal TRIG 150-199 mg/dL Borderline high TRIG 200-500 mg/dL High TRIG greater than 500 mg/dL Very high Standard traceable to the Center for Disease Conrtrol and Prevention (CDC) test method. MG MAMM SCREEN TOM W CADon 0 11-03-2020 MG MAMM SCREEN TOM W CAD Patient: LORRI CAGE Exam Date: 11/03/2020 : 1940 Gender:F Ordering : DR SABAS SALINAS Admission #: [id number] Family : Order #: [id number] CLICK HERE TO VIEW EXAM RADIOLOGY REPORT PROCEDURE: MAMMOGRAM BILATERAL SCREENING DIGITAL WITH COMPUTER AIDED DETECTION COMPARISON: MG MAMM SCREEN TOM W CAD, 10/31/2018. MG MAMM SCREEN TOM W CAD, 11/03/2019. INDICATIONS: Screening mammography Calculator Name NCI Breast Cancer Risk Assessment Tool 5 Year Breast Cancer Risk 1.40% Lifetime Breast Cancer Risk 1.90% Personal Breast Cancer No Personal Ovarian Cancer No Treatments None Family Cancers Mother with ovarian cancer at age 68. LOCATION: [facility] BREAST COMPOSITION: Scattered areas fibroglandular density. FINDINGS: DIAGNOSTIC CATEGORY 2--BENIGN FINDING NO CHANGE FROM COMPARISON ASSESSMENT. Suboptimal positioning due to patient's limited range of motion. Scattered benign-appearing calcifications are present. Scattered benign-appearing lymph nodes are present. RIGHT BREAST: No significant suspicious finding. LEFT BREAST: No significant suspicious finding. RECOMMENDATIONS: ROUTINE MAMMOGRAM AND CLINICAL EVALUATION IN 12 MONTHS. PLEASE NOTE: A NORMAL MAMMOGRAM DOES NOT EXCLUDE THE POSSIBILITY OF BREAST CANCER. A CLINICALLY SUSPICIOUS PALPABLE LUMP SHOULD BE BIOPSIED. Dictated by: David Arellano MD on 11/03/2020 at 14:33 Approved by: David Arellano MD on 11/03/2020 at 14:37 Normal [facility] Vital Signs Date Time Vital Sign Value Performing Clinician Facility 10-20-2024 13:33-0400 Body height 167.64 cm Jerome Portillos DO Work Phone: [facility] 10-20-2024 13:33-0400 Body mass index (BMI) [Ratio] 28.8 kg/m2 Jerome Portillos DO Work Phone: [facility] 10-20-2024 13:33-0400 Body weight 81.19 kg Jerome Portillos DO Work Phone: [facility] 10-20-2024 13:33-0400 Diastolic blood pressure 60 mm[Hg] Jerome Bandars DO Work Phone: [facility] 10-20-2024 13:33-0400 Heart rate 71 /min Jerome Portillos DO Work Phone: [facility] 10-20-2024 13:33-0400 Respiratory rate 16 /min Jerome Portillos DO Work Phone: [facility] 10-20-2024 13:33-0400 SaO2% (BldA) [Mass fraction] 98 % Jeromeregine Portillos DO Work Phone: [facility] 10-20-2024 13:33-0400 Systolic blood pressure 90 mm[Hg] Jerome Bandars DO Work Phone: [facility] 10-16-2024 16:15-0400 Diastolic blood pressure 85 mm[Hg] Jerome Kuns DO Work Phone: [facility] 10-16-2024 16:15-0400 Heart rate 76 /min Jerome Kuns DO Work Phone: [facility] 10-16-2024 16:15-0400 SaO2% (BldA) [Mass fraction] 98 % Jerome Kuns DO Work Phone: [facility] 10-16-2024 16:15-0400 Systolic blood pressure 148 mm[Hg] Jerome Kuns DO Work Phone: [facility] [facility]24 13:12-0400 Diastolic blood pressure 80 mm[Hg] Jerome Bandars DO Work Phone: [facility] 10-01-2024 13:12-0400 Heart rate 69 /min Jeromeregine Portillos DO Work Phone: [facility] 10-01-2024 13:12-0400 SaO2% (BldA) [Mass fraction] 97 % Jeromeregine Portillos DO Work Phone: [facility] 10-01-2024 13:12-0400 Systolic blood pressure 122 mm[Hg] Jerome Portillos DO Work Phone: [facility] 09-29-2024 10:11-0400 Body mass index (BMI) [Ratio] 29.57 kg/m2 Sabas Salinas MD Work Phone: [facility] 09-29-2024 10:11-0400 Body weight 79.38 kg Sabas Salinas MD Work Phone: [facility] 09-29-2024 10:11-0400 Diastolic blood pressure 82 mm[Hg] Sabas Salinas MD Work Phone: [facility] 09-29-2024 10:11-0400 Systolic blood pressure 140 mm[Hg] Sabas Salinas MD Work Phone: [facility] 09-03-2024 13:28-0400 Diastolic blood pressure 70 mm[Hg] Jeromeregine Portillos DO Work Phone: [facility] 09-03-2024 13:28-0400 Heart rate 77 /min Jerome Portillos DO Work Phone: [facility] 09-03-2024 13:28-0400 SaO2% (BldA) [Mass fraction] 97 % Jerome Portillos DO Work Phone: [facility] 09-03-2024 13:28-0400 Systolic blood pressure 112 mm[Hg] Jerome Portillos DO Work Phone: [facility] 08-06-2024 13:27-0400 Body height 167.64 cm Jerome Portillos DO Work Phone: [facility] 08-06-2024 13:27-0400 Diastolic blood pressure 76 mm[Hg] Jerome Portillos DO Work Phone: [facility] 08-06-2024 13:27-0400 Heart rate 78 /min Jerome Portillos DO Work Phone: [facility] 08-06-2024 13:27-0400 SaO2% (BldA) [Mass fraction] 97 % Jerome Portillos DO Work Phone: [facility] 08-06-2024 13:27-0400 Systolic blood pressure 120 mm[Hg] Jerome Portillos DO Work Phone: [facility] 07-15-2024 11:33-0400 Diastolic blood pressure 70 mm[Hg] [facility] 07-15-2024 11:33-0400 Heart rate 72 /min [facility] 07-15-2024 11:33-0400 SaO2% (BldA) [Mass fraction] 98 % [facility] 07-15-2024 11:33-0400 Systolic blood pressure 126 mm[Hg] [facility] 06-24-2024 11:20-0400 Body height 167.64 cm [facility] 06-24-2024 11:20-0400 Body mass index (BMI) [Ratio] 29.9 kg/m2 [facility] 06-24-2024 11:20-0400 Body weight 84.14 kg [facility] 06-24-2024 11:20-0400 Diastolic blood pressure 84 mm[Hg] [facility] 06-24-2024 11:20-0400 Heart rate 63 /min [facility] 06-24-2024 11:20-0400 SaO2% (BldA) [Mass fraction] 99 % [facility] 06-24-2024 11:20-0400 Systolic blood pressure 130 mm[Hg] [facility] 11-27-2023 09:45-0400 Diastolic blood pressure 70 mm[Hg] DO Jerome Kuns Work Phone: [facility] 11-27-2023 09:45-0400 Heart rate 67 /min DO Jerome Kuns Work Phone: [facility] 11-27-2023 09:45-0400 SaO2% (BldA) [Mass fraction] 98 % DO Jerome Kuns Work Phone: [facility] 11-27-2023 09:45-0400 Systolic blood pressure 102 mm[Hg] DO Jerome Kuns Work Phone: [facility] 11-12-2023 10:37-0400 Diastolic blood pressure 90 mm[Hg] DO Jerome Kuns Work Phone: [facility] 11-12-2023 10:37-0400 Heart rate 70 /min DO Jerome Kuns Work Phone: [facility] 11-12-2023 10:37-0400 SaO2% (BldA) [Mass fraction] 99 % DO Jerome Kuns Work Phone: [facility] 11-12-2023 10:37-0400 Systolic blood pressure 140 mm[Hg] DO Jerome Kuns Work Phone: [facility] 10-25-2023 14:04-0400 Diastolic blood pressure 70 mm[Hg] DO Jerome Kuns Work Phone: [facility] 10-25-2023 14:04-0400 Heart rate 60 /min DO Jerome Kuns Work Phone: [facility] 10-25-2023 14:04-0400 SaO2% (BldA) [Mass fraction] 99 % DO Jerome Kuns Work Phone: [facility] 10-25-2023 14:04-0400 Systolic blood pressure 122 mm[Hg] DO Jerome Kuns Work Phone: [facility] 10-05-2023 10:54-0400 Body height 167.64 cm DO Jerome Kuns Work Phone: [facility] 10-05-2023 10:54-0400 Body mass index (BMI) [Ratio] 29.2 kg/m2 DO Jerome Bandars Work Phone: [facility] 10-05-2023 10:54-0400 Body weight 82.1 kg DO Jerome Kuns Work Phone: [facility] 10-05-2023 10:54-0400 Diastolic blood pressure 78 mm[Hg] DO Jerome Kuns Work Phone: [facility] 10-05-2023 10:54-0400 Heart rate 80 /min DO Jerome Kuns Work Phone: [facility] 10-05-2023 10:54-0400 Respiratory rate 16 /min DO Jerome Kuns Work Phone: [facility] 10-05-2023 10:54-0400 SaO2% (BldA) [Mass fraction] 99 % DO Jerome Kuns Work Phone: [facility] 10-05-2023 10:54-0400 Systolic blood pressure 128 mm[Hg] DO Jerome Kuns Work Phone: [facility] 10-12-2022 11:30-0400 Body height 167.64 cm Gin Olivares Other [facility] 10-12-2022 11:30-0400 Body mass index (BMI) [Ratio] 27.27 kg/m2 Gin Olivares Other [facility] 10-12-2022 11:30-0400 Body temperature 97.8 [degF] Gin Olivares Other [facility] Other 10-12-2022 11:30-0400 Body weight 76.66 kg Gin Olivares Other [facility] Other 10-12-2022 11:30-0400 Diastolic blood pressure 78 mm[Hg] Gin Olivares Other [facility] 10-12-2022 11:30-0400 SaO2% (BldA) [Mass fraction] 97 % Gin Olivares Other [facility] 10-12-2022 11:30-0400 Systolic blood pressure 124 mm[Hg] Gin Olivares Other [facility] 10-02-2022 10:30-0400 Body height 167.64 cm Jerome Gr Other [facility] Other 10-02-2022 10:30-0400 Body mass index (BMI) [Ratio] 27.27 kg/m2 Jerome Gr Other [facility] Other 10-02-2022 10:30-0400 Body weight 76.66 kg Jerome Gr Other [facility] Other 10-02-2022 10:30-0400 Diastolic blood pressure 90 mm[Hg] Jerome Portilloalannah Other [facility] Other 10-02-2022 10:30-0400 Respiratory rate 18 /min Jerome Gr Other [facility] Other 10-02-2022 10:30-0400 SaO2% (BldA) [Mass fraction] 97 % Jerome Portilloalannah Other [facility] Other 10-02-2022 10:30-0400 Systolic blood pressure 150 mm[Hg] Jerome Simón Other [facility] Other 08-02-2022 15:20-0400 Body height 167.64 cm Dori Blades Other [facility] Other 08-02-2022 15:20-0400 Body mass index (BMI) [Ratio] 27.44 kg/m2 Dori Blades Other [facility] Other 08-02-2022 15:20-0400 Body weight 77.11 kg Dori Blades Other [facility] Other 08-02-2022 15:20-0400 Diastolic blood pressure 76 mm[Hg] Dori Blades Other [facility] Other 08-02-2022 15:20-0400 Systolic blood pressure 112 mm[Hg] Dori Blades Other [facility] Other 08-01-2022 12:45-0400 Body height 167.64 cm Jerome Simón Other [facility] Other 08-01-2022 12:45-0400 Body mass index (BMI) [Ratio] 27.44 kg/m2 Jerome Gr Other [facility] Other 08-01-2022 12:45-0400 Body weight 77.11 kg Jerome Gr Other [facility] Other 08-01-2022 12:45-0400 Diastolic blood pressure 78 mm[Hg] Jerome Gr Other [facility] Other 08-01-2022 12:45-0400 Respiratory rate 16 /min Jerome Gr Other [facility] Other 08-01-2022 12:45-0400 SaO2% (BldA) [Mass fraction] 97 % Jerome Gr Other [facility] 08-01-2022 12:45-0400 Systolic blood pressure 118 mm[Hg] Jerome Gr Other [address] Other 06-22-2022 13:33-0400 Body temperature 97.4 [degF] DO Jerome Gr Work Phone: [facility] 06-22-2022 13:33-0400 Diastolic blood pressure 82 mm[Hg] DO Jerome Portillos Work Phone: [facility] 06-22-2022 13:33-0400 Heart rate 83 /min DO Jerome Portillos Work Phone: [facility] 06-22-2022 13:33-0400 Respiratory rate 20 /min DO Jerome Portillos Work Phone: [facility] 06-22-2022 13:33-0400 SaO2% (BldA) [Mass fraction] 97 % DO Jerome Gr Work Phone: [facility] 06-22-2022 13:33-0400 Systolic blood pressure 144 mm[Hg] DO Jerome Gr Work Phone: [facility] 06-22-2022 13:25-0400 Body height 167.64 cm DO Jerome Gr Work Phone: [facility] 06-22-2022 13:25-0400 Body weight 77.11 kg DO Jerome Gr Work Phone: [facility] 10-21-2021 11:45-0400 Body height 167.64 cm Jerome Gr Other [facility] Other 10-21-2021 11:45-0400 Body mass index (BMI) [Ratio] 26.63 kg/m2 Jerome Gr Other [facility] Other 10-21-2021 11:45-0400 Body weight 74.84 kg Jerome Gr Other [facility] Other 10-21-2021 11:45-0400 Diastolic blood pressure 85 mm[Hg] Jerome Gr Other [facility] Other 10-21-2021 11:45-0400 Respiratory rate 16 /min Jerome Gr Other [facility] Other 10-21-2021 11:45-0400 SaO2% (BldA) [Mass fraction] 95 % Jerome Portilloalannah Other [facility] Other 10-21-2021 11:45-0400 Systolic blood pressure 125 mm[Hg] Jerome Gr Other [facility] Other 09-09-2021 11:00-0400 Body height 167.64 cm Jerome Gr Other [facility] Other 09-09-2021 11:00-0400 Body mass index (BMI) [Ratio] 27.11 kg/m2 Jerome Gr Other [facility] 09-09-2021 11:00-0400 Body weight 76.2 kg Jerome Gr Other [facility] Other 09-09-2021 11:00-0400 Diastolic blood pressure 66 mm[Hg] Jerome Gr Other [facility] 09-09-2021 11:00-0400 Respiratory rate 16 /min Jerome Gr Other [facility] Other 09-09-2021 11:00-0400 SaO2% (BldA) [Mass fraction] 97 % Jerome rG Other [facility] Other 09-09-2021 11:00-0400 Systolic blood pressure 112 mm[Hg] Jerome Gr Other [facility] 08-03-2021 11:00-0400 Body height 167.64 cm Jerome Gr Other [facility] Other 08-03-2021 11:00-0400 Body mass index (BMI) [Ratio] 27.27 kg/m2 Jerome Gr Other [facility] Other 08-03-2021 11:00-0400 Body weight 76.66 kg Jerome Gr Other [facility] Other 08-03-2021 11:00-0400 Diastolic blood pressure 55 mm[Hg] Jerome Gr Other [facility] Other 08-03-2021 11:00-0400 Respiratory rate 18 /min Jerome Gr Other [facility] Other 08-03-2021 11:00-0400 SaO2% (BldA) [Mass fraction] 94 % Jerome Gr Other [facility] Other 08-03-2021 11:00-0400 Systolic blood pressure 100 mm[Hg] Jerome Gr Other [facility] Other Encounters Encounter Date Encounter Type Care Provider Facility Start: 10-23-2024 End: 10-23-2024 ambulatory Jerome Gr DO Work Phone: [facility] Work Phone: Start: 10-23-2024 End: 10-23-2024 Patient encounter procedure Joseph Sharma MD -[facility] Work Phone: Start: 10-20-2024 End: 10-20-2024 ambulatory Jerome Gr DO Work Phone: [facility] Work Phone: Start: 10-20-2024 End: 10-20-2024 Patient encounter procedure Jerome Sanchez DO -[facility] [place] Work Phone: Start: 10-16-2024 End: 10-16-2024 ambulatory Jerome Gr DO Work Phone: [facility] Work Phone: Start: 10-16-2024 End: 10-16-2024 Patient encounter procedure Joseph Sharma MD -[facility] Work Phone: Start: 10-09-2024 End: 10-09-2024 ambulatory Jerome Gr DO Work Phone: [facility] Work Phone: Start: 10-09-2024 End: 10-09-2024 Patient encounter procedure Joseph Sharma MD -[facility] Work Phone: Start: 10-06-2024 End: 10-06-2024 Patient encounter procedure Jerome Gr P DO -[facility] [place] Work Phone: Start: 10-06-2024 End: 10-06-2024 ambulatory Jerome Simón DO Work Phone: [facility] Work Phone: Start: 10-01-2024 End: 10-01-2024 ambulatory Jeromeregine Portilloalannah DO Work Phone: [facility] Work Phone: Start: 10-01-2024 End: 10-01-2024 Patient encounter procedure Joseph Sharma MD -[facility] Work Phone: Start: 09-29-2024 End: 09-29-2024 Bamboo flowsheet Sabas Salinas MD Work Phone: [facility] Start: 09-29-2024 End: 09-29-2024 Bamboo flowsheet Sabas Salinas MD Work Phone: [facility] Start: 09-29-2024 End: 09-29-2024 Patient encounter procedure Sabas Salinas MD Work Phone: [facility] Work Phone: Start: 09-29-2024 End: 09-29-2024 Periodic preventive med est patient 65yrs& older Sabas Salinas MD Work Phone: [facility] Comment on above: Well woman exam with routine gynecological exam (Primary Dx); Cervical cancer screening; Other screening mammogram Start: 09-29-2024 End: 09-29-2024 ambulatory SABAS ELLSWORTHChanda Not Available Start: 09-18-2024 End: 09-18-2024 ambulatory Jerome Gr DO Work Phone: [facility] Work Phone: Start: 09-18-2024 End: 09-18-2024 Patient encounter procedure Joseph Sharma MD [facility] Work Phone: Start: 09-18-2024 Non-patient / Non-visit Joseph nichols MD [facility] Work Phone: Start: 09-03-2024 End: 09-03-2024 ambulatory Jerome Gr DO Work Phone: [facility] Work Phone: Start: 09-03-2024 End: 09-03-2024 Patient encounter procedure Joseph Sharma MD -[facility] Work Phone: Start: 08-26-2024 End: 08-26-2024 ambulatory Jerome Gr DO Work Phone: [facility] Work Phone: Start: 08-26-2024 End: 08-26-2024 Patient encounter procedure Joseph Sharma MD [facility] Work Phone: Start: 08-26-2024 Non-patient / Non-visit Joseph nichols MD [facility] Work Phone: Start: 08-06-2024 End: 08-06-2024 ambulatory Jerome Gr DO Work Phone: [facility] Work Phone: Start: 08-06-2024 End: 08-06-2024 Patient encounter procedure Joseph Sharma MD [facility] Work Phone: Start: 07-29-2024 End: 07-29-2024 Patient encounter procedure Joseph Sharma MD -[facility] Work Phone: Start: 07-29-2024 Non-patient / Non-visit Joseph nichols MD -[facility] Work Phone: Start: 07-15-2024 End: 07-15-2024 ambulatory [facility] Work Phone: Start: 07-15-2024 End: 07-15-2024 Patient encounter procedure [facility] Work Phone: Start: 07-03-2024 Non-patient / Non-visit [facility] Work Phone: Start: 07-03-2024 End: 07-03-2024 ambulatory [facility] Work Phone: Start: 07-03-2024 End: 07-03-2024 Patient encounter procedure [facility] Phys[facility] Work Phone: Start: 06-24-2024 End: 06-24-2024 ambulatory [facility] Work Phone: Start: 06-24-2024 End: 06-24-2024 Patient encounter procedure [facility] Physician [facility] Work Phone: Start: 11-27-2023 End: 11-27-2023 ambulatory DO Jerome Gr Work Phone: [facility] Work Phone: Start: 11-27-2023 End: 11-27-2023 Patient encounter procedure DO Jerome Gr Work Phone: [facility] Physician [facility] Work Phone: Start: 11-21-2023 Non-patient / Non-visit DO Anmol Gr Work Phone: [facility] Physician [facility] Work Phone: Start: 11-21-2023 End: 11-21-2023 ambulatory DO Jerome Gr Work Phone: [facility] Work Phone: Start: 11-21-2023 End: 11-21-2023 Patient encounter procedure DO Jerome Gr Work Phone: [facility] Physician [facility] Work Phone: Start: 11-12-2023 End: 11-12-2023 ambulatory DO Jerome Gr Work Phone: [facility] Work Phone: Start: 11-12-2023 End: 11-12-2023 Patient encounter procedure DO Jerome Gr Work Phone: [facility] Physician [facility] Work Phone: Start: 11-06-2023 Non-patient / Non-visit DO Anmol regine Simón Work Phone: [facility] Physician [facility] [place] Work Phone: Start: 11-01-2023 End: 11-01-2023 ambulatory DO Jerome Gr Work Phone: [facility] Work Phone: Start: 11-01-2023 End: 11-01-2023 Patient encounter procedure DO Jerome Gr Work Phone: [facility] Physician [facility] Work Phone: Start: 11-01-2023 Non-patient / Non-visit DO Anmol regine Gr Work Phone: [facility] Work Phone: Start: 10-25-2023 End: 10-25-2023 ambulatory DO Jeromeregine Gr Work Phone: [facility] Work Phone: Start: 10-25-2023 End: 10-25-2023 Patient encounter procedure DO Jerome Gr Work Phone: [facility] Work Phone: Start: 10-05-2023 Patient encounter status DO Maribell Gr Work Phone: [facility] Start: 10-05-2023 End: 10-05-2023 ambulatory DO Jerome Gr Work Phone: [facility] Work Phone: Start: 10-05-2023 End: 10-05-2023 Encounter for general adult medical examination without abnormal findings DO Jerome Gr Work Phone: [facility] Start: 10-05-2023 End: 10-05-2023 Patient encounter procedure DO Jerome Gr Work Phone: [facility] [place] Work Phone: Start: 10-02-2023 End: 10-02-2023 ambulatory DO Jerome Gr Work Phone: [facility] Work Phone: Start: 10-02-2023 End: 10-02-2023 Patient encounter procedure DO Jerome Gr Work Phone: [facility] [place] Work Phone: Start: 11-16-2022 End: 11-16-2022 ambulatory DO Jerome Gr Work Phone: [facility] Work Phone: Start: 11-16-2022 End: 11-16-2022 Patient encounter procedure DO Jerome Gr Work Phone: [facility] Start: 11-08-2022 ([email or web address]) Ab frey [facility] V[facility] Start: 11-08-2022 End: 11-08-2022 ambulatory Gin Olivares Other [facility] Other Start: 10-19-2022 End: 10-19-2022 ambulatory Jerome Gr Other [facility] Other Start: 10-19-2022 Telephone encounter Jerome Gr [facility] [place] Start: 10-12-2022 End: 10-12-2022 ambulatory Gin Olivares Other [facility] Other Start: 10-12-2022 Patient encounter procedure Gin Olivares [facility] Vascular Surgery Start: 10-10-2022 End: 10-10-2022 ambulatory Jerome Gr Other [facility] Other Start: 10-10-2022 Telephone encounter Jerome Gr [facility] Start: 10-02-2022 End: 10-02-2022 ambulatory Jerome Gr Other [facility] Other Start: 10-02-2022 Office outpatient vi sit 25 minutes [facility] Start: 09-28-2022 End: 09-28-2022 ambulatory DO Jerome Gr Work Phone: [facility] Work Phone: Start: 09-28-2022 End: 09-28-2022 Patient encounter procedure DO Jerome Gr Work Phone: [facility] [place] Work Phone: Start: 09-26-2022 End: 09-26-2022 ambulatory DO Jerome Gr Work Phone: [facility] Work Phone: Start: 09-26-2022 End: 09-26-2022 Patient encounter procedure DO Jerome Gr Work Phone: [facility] [place] Work Phone: Start: 09-19-2022 End: 09-19-2022 ambulatory Gin Elise Other [facility] Other Start: 09-19-2022 Telephone encounter Gin Rutfei Díaz [employer] Start: 09-11-2022 End: 09-11-2022 ambulatory DO Jerome Kuns Work Phone: [facility] Work Phone: Start: 09-11-2022 End: 09-11-2022 Discharged Recurring DO Jerome Kuns Work Phone: [facility] [place] Work Phone: Start: 08-08-2022 End: 08-08-2022 ambulatory DO Jerome Kuns Work Phone: [facility] Work Phone: Start: 08-08-2022 End: 08-08-2022 Discharged Recurring DO Jerome Kuns Work Phone: [facility] [place] Work Phone: Start: 08-04-2022 End: 08-04-2022 ambulatory Dori Blades Other [facility] Other Start: 08-04-2022 Telephone encounter Dori Díaz [facility] [employer] Start: 08-02-2022 End: 08-02-2022 ambulatory Dori Blades Other [facility] Other Start: 08-02-2022 Office outpatient ne w 45 minutes Dori Blades [facility] Start: 08-01-2022 End: 08-01-2022 ambulatory Jerome Kuns Other [employer] [address] Other Start: 08-01-2022 Office outpatient vi sit 15 minutes Jerome Kuns [facility] [place] Start: 07-13-2022 End: 07-13-2022 ambulatory Jerome Portilloalannah Other [facility] Other Start: 07-13-2022 Telephone encounter Jerome Gr [facility] Start: 07-11-2022 End: 07-11-2022 ambulatory Jerome Portilloalannah Other [facility] Other Start: 07-11-2022 Telephone encounter Jerome Gr [facility] Start: 07-04-2022 End: 07-04-2022 Patient encounter procedure DO Jerome Portilloalannah Work Phone: [facility]-XRay [facility] [place] Work Phone: Start: 06-22-2022 End: 06-22-2022 Emergency department patient visit DO Jerome Gr Work Phone: [facility]-Emergency Room Work Phone: Start: 06-21-2022 End: 06-21-2022 ambulatory Jerome Gr Other [facility] Other Start: 06-21-2022 Telephone encounter Jerome Simón [facility] Start: 04-27-2022 End: 04-27-2022 ambulatory Jerome Portilloalannah Other [facility] Other Start: 04-27-2022 Telephone encounter Jerome Gr [facility] Start: 11-23-2021 End: 11-23-2021 ambulatory Jerome Gr Other [facility] Other Start: 11-23-2021 Telephone encounter Jerome Gr [facility] Start: 11-17-2021 End: 11-17-2021 ambulatory Jerome Gr Other [facility] Other Start: 11-17-2021 Telephone encounter Jerome Gr [facility] [place] Start: 10-31-2021 End: 10-31-2021 ambulatory Jerome Gr Other [facility] Other Start: 10-31-2021 Telephone encounter Jerome Gr [facility] [place] Start: 10-21-2021 End: 10-21-2021 ambulatory Jerome Gr Other [facility] Other Start: 10-21-2021 Office outpatient vi sit 25 minutes Jerome Gr [facility] Start: 10-06-2021 End: 10-06-2021 Patient encounter procedure DO Jerome Gr Work Phone: [facility]-Nuc Med [facility] Start: 09-26-2021 End: 09-26-2021 ambulatory Jerome Gr Other [facility] Other Start: 09-26-2021 Telephone encounter Jerome Gr [facility] Start: 09-22-2021 End: 09-22-2021 Patient encounter procedure DO Jerome Gr Work Phone: [facility]-CT Scan [facility] Start: 09-09-2021 End: 09-09-2021 ambulatory Jerome Gr Other [facility] Other Start: 09-09-2021 Office outpatient vi sit 25 minutes Jerome Gr [facility] Start: 08-03-2021 End: 08-03-2021 ambulatory Jerome Gr Other [facility] Other Start: 08-03-2021 Office outpatient vi sit 25 minutes Jerome Gr [facility] Start: 07-29-2021 End: 07-29-2021 Patient encounter procedure DO Jerome Gr Work Phone: [facility] [place] Start: 11-03-2020 End: 11-04-[address] DAVID ARELLANO Facility:[facility] Start: 11-03-2013 End: 11-03-2013 Telephone encounter Kareem Lincoln Work Phone: Hematology/Oncology Procedures Date Procedure Procedure Detail Performing Clinician Start: 11-16-2022 Duplex scan of lower limb veins DO Jerome Xenith Work Phone: Start: 09-28-2022 Duplex scan of lower limb veins DO Jerome Xenith Work Phone: Start: 07-04-2022 Plain X-ray of left shoulder DO Jerome [employer] Phone: Start: 06-22-2022 Duplex scan of lower limb veins DO Jerome [employer] Phone: Start: 06-22-2022 X-ray of lumbar spin e, four or more views DO [employer] Phone: Start: 10-06-2021 Radionuclide imaging of liver and/or biliary tract using radioactive isotope DO Jerome Xenith Work Phone: Start: 09-22-2021 Computed tomography of abdomen and pelvis with contrast DO [employer] Phone: Plan of Treatment Date Care Activity Detail Author Start: 10-31-2024 End: 11-25-2025 DBT Breast - bilateral screening Bilateral screening mammogram with tomosynthesis Imaging Routine Other screening mammogram Expected: 10/31/2024, Expires: 11/25/2025 [facility] Comment on above: Expected: 10/31/2024 , Expires: 11/25/2025 Start: 10-13-2024 Influenza vaccination Influenza Vacc ine (#1) [facility] Start: 09-29-2024 End: 09-29-2024 Patient encounter procedure 09/29/2024 10:30 AM EDT Office Visit [facility] [address] [place] [id number] Sabas Salinas MD [address] [place] [address] Well woman exam with routine gynecological exam; Cervical cancer screening; Other screening mammogram [facility] Comment on above: Well woman exam with routine gynecological exam; Cervical cancer screening; Other screening mammogram Start: 10-05-2023 Patient referral [facility] Work Phone: Start: 09-28-2022 Duplex scan of lower limb veins US venous duplex LE BI [facility] Start: 09-28-2022 US Lower extremity v ein - bilateral [facility] Start: 10-06-2021 Radionuclide imaging of liver and/or biliary tract using radioactive isotope NM hepatobiliary w pharm [facility] Start: 10-06-2021 End: 10-06-2021 Patient encounter procedure Departed Clinical [facility] Start: 10-13-2020 Influenza vaccination INFLUENZ A (Season Ended) [facility] Start: 11-03-2016 DIABETES SCREEN DIABETES SCREEN [facility] Start: 07-23-2003 ADVANCE DIRECTIVE DISCUSSION ADVANCE DIRECTIVE DISCUSSION [facility] Start: 07-23-2003 BONE DENSITY BONE DENSITY [facility] Start: 07-23-2003 PNEUMOVAX AGE 65 AND OVER WITH 5YR LOOKBACK (#1) PNEUMOVAX AGE 65 AND OVER WITH 5YR LOOKBACK (#1) [facility] Start: 1988 SHINGRIX VACCINE (1 of 2) SHINGRIX VACCINE (1 of 2) [facility] Start: 1957 Urine microalbumin profile DTAP,TDAP,TD (1 - Tdap) [facility] Comprehensive metabo lic 1999 panel - Serum or Plasma [facility] Comprehensive metabo lic 1999 panel - Serum or Plasma [facility] Glucose measurement estimated from glycated hemoglobin [facility] Glucose measurement estimated from glycated hemoglobin [facility] Hemoglobin A1c/Hemoglobin.total in Blood [facility] IGP,rfx Aptima HPV a ll pth IGP,rfx Aptima HPV all pth Pathology and Cytology Routine Cervical cancer screening Ordered: 09/29/2024 [facility] Work Phone: Comment on above: Ordered: 09/29/2024 Patient Education Radiculopathy (DC) [facility] Work Phone: Patient referral [facility] Work Phone: [facility] Immunizations Immunization Date Immunization Notes Care Provider Fa malka 07-02-2024 tetanus toxoid, redu sola diphtheria toxoid, and acellular pertussis vaccine, adsorbed [facility] 11-08-2023 COVID-19 (MODERNA) 12Y and older DO Jerome Gr Work Phone: [facility] 11-08-2023 COVID-19 (PFIZER) 12Y and older Jerome Gr DO Work Phone: [facility] 11-08-2023 Influenza vaccine, quadrivalent, adjuvanted DO Jerome Gr Work Phone: [facility] 11-08-2023 RSV, bv, preFa and preFb, pf Jerome Gr DO Work Phone: [facility] 11-08-2023 RSV, preF3, adj, pf DO Jerome Gr Work Phone: [facility] 11-08-2023 Seasonal trivalent influenza vaccine, adjuvanted, preservative free Jerome Gr DO Work Phone: [facility] 11-08-2023 influenza virus vaccine, unspecified formulation Sabas Salinas MD Work Phone: [facility] 11-16-2022 COVID-19 (PFIZER) 12Y and older DO Jerome Gr Work Phone: [facility] 11-16-2022 Influenza vaccine, quadrivalent, adjuvanted DO Jerome Gr Work Phone: [facility] 11-23-2021 influenza, seasonal, injectable Jerome Gr Other [facility] 11-23-2021 Influenza vaccine, quadrivalent, adjuvanted DO Jerome Gr Work Phone: [facility] 12-25-2020 COVID-19 Vaccine Moderna - Documentation Purposes Only Jerome Gr Other [facility] 11-15-2020 Fluzone QIV High-Dos e 65YR+ DO Jerome Gr Work Phone: [facility] 04-16-2020 COVID-19 Vaccine Moderna - Documentation Purposes Only Jerome Gr Other [facility] 03-19-2020 COVID-19 Vaccine Moderna - Documentation Purposes Only Jerome Gr Other [facility] 11-05-2019 Fluzone QIV High-Dos e 65YR+ DO Jerome Gr Work Phone: [facility] 11-05-2019 influenza, seasonal, injectable Jerome Gr Other [facility] 11-07-2018 influenza virus vaccine, unspecified formulation DO Jerome Gr Work Phone: [facility] 11-07-2018 influenza, high dose seasonal, preservative-free Jerome Portillos Other [facility] 11-23-2017 influenza, injectabl e, madin augusta canine kidney, preservative free DO Jeroem Gr Work Phone: [facility] 11-09-2017 influenza, seasonal, injectable Jerome Gr Other [facility] 11-09-2017 influenza, high dose seasonal, preservative-free DO Jerome Gr Work Phone: [facility] 10-16-2017 zoster vaccine recombinant DO Jerome Gr Work Phone: [facility] 10-16-2017 zoster vaccine, live Jerome gilmore Other [facility] 11-16-2016 influenza, high dose seasonal, preservative-free DO Jerome Portillos Work Phone: [facility] 11-16-2016 influenza, seasonal, injectable Jerome Gr Other [facility] 11-20-2015 pneumococcal polysaccharide vaccine, 23 valent Jerome Portillos Other [facility] 11-08-2015 influenza virus vaccine, unspecified formulation DO Jerome Gr Work Phone: [facility] 11-08-2015 influenza, high dose seasonal, preservative-free Jerome Kuns Other [facility] 11-19-2014 pneumococcal conjuga te vaccine, 13 valent Jerome Portillos Other [facility] 10-23-2011 influenza virus vaccine, unspecified formulation DO Jerome Gr Work Phone: [facility] 10-23-2011 influenza, high dose seasonal, preservative-free Jerome Portillos Other [facility] [employer] Other Payers Date Payer Category Payer Self-pay [id number] 2021 Medicaid AETNA MEDICARE A DVANTAGE [id number] 2021 Medicare [id number] 2013 Medicare AETNA MEDICARE A ETNA MEDICARE PPO [id number] 2013-Present PPO [id number] 1959 Medicare [id number] 1940 Unknown [id number] 1940 Unknown [id number] Unknown [id number] Social History Date Type Detail Facility Start: 11-03-2013 End: 10-20-2024 Tobacco smoking status NMIS Never smoker [facility] Start: 11-03-2013 Alcohol intake Not Asked [facility] Start: 1940 Sex Assigned At Not on file [facility] Start: 09-25-2024 End: 09-29-2024 Sex Assigned At [facility] [employer] Other Start: 1940 Sex Assigned At Female F [facility] Start: 06-22-2022 End: 09-03-2024 Tobacco smoking status NMIS Ex-smoker (finding) [facility] Start: 06-24-2024 End: 07-15-2024 Sex Female (finding) [facility] Start: 09-26-2022 Tobacco use and exposure Smokeless tobacco non-user [facility] Start: 09-25-2024 End: 09-29-2024 Alcoholic beverage intake Current drinker of alcohol (finding) [facility] Start: 09-25-2024 End: 09-29-2024 Alcoholic beverage intake [facility] Clinical Notes 10-21-2015 to 09-29-2024 Sabas Salinas MD - 09/29/2024 10:30 AM EDT Note Date & Type Note Facility 09-29-2024 History of Presen t illness Narrative Images from the original note were not included. Sabas Salinas MD Obstetrics and Gynecology Patient: Lorri Medrano Jayson, : 1940 (84 y.o.) DOS 09/29/24 Exam Date: 09/29/2024 HPI: Routine exm. She is well. No pain/bleeding/disch Visit Vitals BP 140/82 Wt 175 lb BMI 29.57 kg/m OB Status Postmenopausal Smoking Status Never BSA 1.9 m OB History Para Term AB Living 2 2 2 0 0 2 SAB IAB Ectopic Multiple Live Births 0 0 0 0 2 # Outcome Date GA Lbr Luis/2nd Weight Sex Type Anes PTL Lv 2 Term 1 Term Obstetric Comments Pap: 10/04-Neg STEPHANIE Mammo: 10/31/23-Neg ([facility]) Menopausal Medication and Allergies Medication Documentation Review Audit Reviewed by Delilah Lopez MA (Name Plate Stamper) on 09/29/24 at 1022 Medication Order Taking? Sig Documenting Provider Last Dose Status Acetaminophen (TYLENOL 8 HOUR PO) [id number] Tylenol Historical ProviderMD Active ASPIRIN 81 PO [id number] Aspir-81 Historical MD Roseanne Active Calcium Carb-Cholecalciferol (CALCIUM/VITAMIN D PO) [id number] Take by mouth. Historical MD Roseanne Active Discontinued 09/29/24 1021 IBUPROFEN PO [id number] Ibuprofen Historical ProviderMD Active levothyroxine (Synthroid, Levoxyl) 100 MCG tablet [id number] TAKE 1 TABLET BY MOUTH EVERY DAY IN THE MORNING ON EMPTY STOMACH FOR 90 DAYS Historical MD Roseanne Active mirabegron ER (Myrbetriq) 50 MG 24 hr tablet [id number] 1 (one) time each day at the same time. Historical ProviderMD Active montelukast (Singulair) 10 MG tablet [id number] Take by mouth. Historical ProviderMD Active Multiple Vitamin (multivitamin) capsule [id number] Take 1 capsule by mouth in the morning. Historical MD Roseanne Active Discontinued 09/29/24 1022 triamcinolone (Kenalog) 0.1 % ointment [id number] Apply to affected areas, avoid skin folds topically BID prn for 30 days Historical ProviderMD Active TURMERIC PO [id number] Take by mouth. Historical ProviderMD Active valsartan (Diovan) 320 MG tablet [id number] Yes Take 320 mg by mouth Daily Sabas Salinas MD Active Discontinued 09/29/24 1022 Discontinued 09/29/24 1022 Allergies Allergen Reactions Lisinopril Other Past Medical History: Diagnosis Date Thyroid disease Past Surgical History: Procedure Laterality Date CARDIAC CATHETERIZATION CATARACT EXTRACTION COLONOSCOPY 2017 DILATION AND CURETTAGE OF UTERUS TONSILLECTOMY TOTAL HIP ARTHROPLASTY Left 2011 TOTAL HIP ARTHROPLASTY Right 2021 VAGINAL DELIVERY VAGINAL DELIVERY Physical Exam: Objective Physical Exam Constitutional: Appearance: Normal appearance. Genitourinary: Vulva normal. No vaginal discharge or bleeding. Right Adnexa: not palpable. Left Adnexa: not palpable. No cervical lesion. Uterus is not enlarged or tender. Breasts: Right: Normal. Left: Normal. Pulmonary: Effort: Pulmonary effort is normal. Abdominal: Palpations: Abdomen is soft. Neurological: Mental Status: She is alert. Assessment/Plan ICD-10-CM 1. Well woman exam with routine gynecological exam Z01.419 2. Cervical cancer screening Z12.4 IGP,rfx Aptima HPV all pth 3. Other screening mammogram Z12.31 Bilateral screening mammogram with tomosynthesis Orders Placed This Encounter Procedures Bilateral screening mammogram with tomosynthesis U/S and spot compression if indicated Standing Status: Future Expected Date: 10/31/2024 Expiration Date: 11/25/2025 Reason for exam:: screen documented in this encounter [facility] 08-06-2024 Evaluation note Diagnosis Onset Date Resolution Arthritis of lumbosacral spine acute August 06, [...] 1:03pm Arthritis of lumbosacral spine acute October 01 1:05pm Lumbar radiculopathy acute 2024 1:05pm Other chronic pain acute October 01, 2024 1:05pm Sacroiliitis acute October 01, 2024 1:05pm Arthritis of lumbosacral spine acute October 16, 2 025 4:08pm Lumbar radiculopathy acute Oct 4:08pm Other chronic pain acute 2024 4:08pm Sacroiliitis acute October 4:08pm [facility] Work Phone: 1(798) 557-562206-25-2025 Evaluation note* Diagnosis Onset Date Resolution Status Admit Date Arthritis of lumbosacral spine acute August 06, 2024 1:20pm Lumbar radiculopathy acute August 06, 2024 1:20pm Other chronic pain acute July 142024 1:20pm Sacroiliitis acute August 06, 2 025 1:20pm Arthritis of lumbosacral spine acute September 03, 2024 1:03pm Lumbar radiculopathy acute September 03, 2024 1:03pm Other chronic pain acute August 132024 1:03pm Sacroiliitis acute September 03 025 1:03pm Arthritis of lumbosacral spine acute October 01, 2024 1:05pm Lumbar radiculopathy acute 2024 1:05pm Other chronic pain acute October 01, 2024 1:05pm Sacroiliitis acute October 01, 2024 1:05pm Arthritis of lumbosacral spine acute October 16, 2024 4:08pm Lumbar radiculopathy acute Oct 4:08pm Other chronic pain acute 2024 4:08pm Sacroiliitis acute October 4:08pm HTN (hypertension) acute 2024 12:41pm Hyperglycemia acute October 202024 12:41pm Hyperlipidemia acute October 20, 2024 12:41pm Medicare annual wellness vis it, subsequent acute October 20 025 12:41pm Post-menopausal acute October 20, 2024 12:41pm Screening mammogram for melvi st cancer acute October 20 025 12:41pm [facility] Work Phone: 1(336) 131-478206-03-2025 Evaluation note* Diagnosis Onset Date Resolution Status Admit Date Arthritis of lumbosacral spine acute July 15, 2024 11:23am Lumbar radiculopathy acute July 15, 2024 11:23am Other chronic pain acute July 152024 11:23am Sacroiliitis acute July 15 11:23am Arthritis of lumbosacral spine acute August 06, [...] October 01, 2024 1:05pm Lumbar radiculopathy acute 2024 1:05pm Other chronic pain acute October 01, 2024 1:05pm Sacroiliitis acute October 01, 2024 1:05pm [facility] Work Phone: 1(487) 863-969805-13-2025 Evaluation note* Diagnosis Onset Date Resolution Status Admit Date Arthritis of lumbosacral spine acute June 24, 2024 11:16am Lumbar radiculopathy acute June 24, 2024 11:16am Other chronic pain acute June 242024 11:16am Sacroiliitis acute June 24 11:16am [facility] Work Phone: 1(583) 316-703405-13-2025 Evaluation note* Diagnosis Onset Date Resolution Status Admit Date Arthritis of lumbosacral spine acute June 24, 2024 11:16am Lumbar radiculopathy acute June 24, 2024 11:16am Other chronic pain acute June 242024 11:16am Sacroiliitis acute June 24 11:16am Arthritis of lumbosacral spine acute July 15, 2024 11:23am Lumbar radiculopathy acute July 15, 2024 11:23am Other chronic pain acute July 152024 11:23am Sacroiliitis acute July 15 11:23am [facility] Work Phone: 1(120) 538-635505-13-2025 Evaluation note* Diagnosis Onset Date Resolution Status Admit Date Arthritis of lumbosacral spine acute June 24, 2024 11:16am Lumbar radiculopathy acute June 24, 2024 11:16am Other chronic pain acute June 242024 11:16am Sacroiliitis acute June 24 11:16am Arthritis of lumbosacral spine acute July 15, 2024 11:23am Lumbar radiculopathy acute July 15, 2024 11:23am Other chronic pain acute July 152024 11:23am Sacroiliitis acute July 15 11:23am Arthritis of lumbosacral spine acute August 06, 2024 1:20pm Lumbar radiculopathy acute August 06, 2024 1:20pm Other chronic pain acute July 142024 1:20pm Sacroiliitis acute August 06 025 1:20pm [facility] Work Phone: 1(285) 934-261705-13-2025 Evaluation note* Diagnosis Onset Date Resolution Status Admit Date Arthritis of lumbosacral spine acute June 24, 2024 11:16am Lumbar radiculopathy acute June 24, 2024 11:16am Other chronic pain acute June 242024 11:16am Sacroiliitis acute June 24 11:16am Arthritis of lumbosacral spine acute July 15, 2024 11:23am Lumbar radiculopathy acute July 15, 2024 11:23am Other chronic pain acute July 152024 11:23am Sacroiliitis acute July 15 11:23am Arthritis of lumbosacral spine acute August 06, 2024 1:20pm Lumbar radiculopathy acute August 06, 2024 1:20pm Other chronic pain acute July 142024 1:20pm Sacroiliitis acute August 06, 025 1:20pm Arthritis of lumbosacral spine acute September 03, 2024 1:03pm Lumbar radiculopathy acute September 03, 2024 1:03pm Other chronic pain acute August 132024 1:03pm Sacroiliitis acute September 03, 025 1:03pm [facility] Work Phone: 1(522) 927-221908-31-2023 Evaluation note* Encounter Date Diagnosis Assessment Notes Treatment Notes Treatment Clinical Notes 31 Aug, 2023 Chronic venous insufficiency (ICD-10 - I87.2) Sep, Symptomatic varicose veins of both lower extremities (ICD-10 - I83.893) Sep, Other We discussed th e results of her full functional venous duplex which does show greater than 5-second reflux of the right LSV as well as greater than 5 seconds reflux of the left GSV. She has had her left GSV previously treated. She does have large cluster of varicosities to the medial left thigh measuring 0.36 to 0.48 cm in diameter. She also has scattered varicosities and perforators in the left calf region also measuring up to 0.35 cm in diameter. On the right she has LSV reflux of greater than 5 seconds along with once again scattered secondary varicosities and perforators in the calf with largest cluster of varicosities measuring up to 0.53 cm in diameter. Her biggest complaint is with the left leg with some aching along with reported [id number] . She often complains of numbness of her foot. We discussed venous disease at length. And discussed symptoms of achiness, heaviness, leg fatigue, itching, and burning pain. She also has a history of back issues. We discussed the various etiologies of leg symptoms to include both vasculogenic and neurogenic in nature. We discussed treatment of the varicosities with Varithena from a large cluster of varicosities in the left calf as this seems to be the most painful for her. We will start with this to see if she gets any relief in her symptoms. I think she would also benefit from a neurology consult to evaluate patient for symptoms of neuropathy and address her numbness and tingling in her feet. She has been cleared by neurosurgeon stating there is no surgical intervention needed with her low back. We will submit for insurance approval for Varithena treatment of the left lateral leg secondary varicosities and get her on the schedule in the near future. Procedure, risk, benefits were discussed with her at length and all questions were addressed. She understands the chronic and progressive nature of venous disease and the ongoing importance of conservative therapy efforts. [facility] Other 08-29-2023 Evaluation note* Encounter Date Diagnosis Assessment Notes Treatment Notes Treatment Clinical Notes Sep, Hypothyroid (ICD-10 - E03.9) Sep, Other chronic pain (ICD-10 - G89.29) Sep, Hypertension (ICD-10 - I10) Sep, Seasonal allergies (ICD-10 - J30.2) [facility] Other 08-21-2023 Evaluation note* Encounter Date Diagnosis Assessment Notes Treatment Notes Treatment Clinical Notes Sep, Hypertension (ICD-10 - I10) Boderline elevated blood pressure findings in the office today. Pt is to continue with the above medication , encouraged to check her blood pressure at home on occasion, a refill was provided and we will continue to monitor. Sep, Hypothyroid (ICD-10 - E03.9) Blood work results reviewed with the patient . Free T4 and TSH are in balance at this time.Pt is to continue with the above medication and we will continue to monitor. Sep, Lumbar disc disease (ICD-10 - M51.9) The patient did consult with neurosurgeon who has advised of chronic vascular conditions and recommends the patient follow with vascular specialist. Sep, Weakness of left lower extremity (ICD-10 - R29.898) Venous duplex results reviewed with the patient noting severe chronic venous insufficiency. Sep, Chronic venous insufficiency (ICD-10 - I87.2) Review of lower extremity ultrasound results reviewed with the patient noting severe vascular incompetence bilaterally. The patient encouraged to follow up with vascular specialist for recommendations as scheduled 10/12. Sep, Other chronic pain (ICD-10 - G89.29) The patient does not tolerate [place] as it causes itching. I am in agreement with providing Tramadol instead, instructions provided and she may continue Motrin as needed, a refill was provided. Sep, Pain in left shoulder (ICD-10 - M25.512) Left shoulder pain is unchanged. [place] specialist consult is recommended. The patient will consider this but wants to get her legs done first and may decide to see an orthopedic while she is [place] for the winter. Sep, Seasonal allergies (ICD-10 - J30.2) Sep, Hyperlipidemia, unspecified hyperlipidemia type (ICD-10 - E78.5) Sep, Hyperglycemia (ICD-10 - R73.9) Ludi Other 06-23-2023 Evaluation note* Encounter Date Diagnosis Assessment Notes Treatment Notes Treatment Clinical Notes Jul, Weakness of left lower extremity (ICD-10 - R29.898) Jul, Pins and needles sensation (ICD-10 - R20.2) Jul, Left lumbar radiculopathy (ICD-10 - M54.16) Jul, Hyperlipidemia (ICD-10 - E78.5) Jul, Hyperglycemia (ICD-1 0 - R73.9) Jul, Anemia, unspecified type (ICD-10 - D64.9) Jul, Hypothyroid (ICD-10 - E03.9) [facility] Other 06-21-2023 Evaluation note* Encounter Date Diagnosis Assessment Notes Treatment Notes Treatment Clinical Notes Jul, Pain in right leg (ICD-10 - M79.604) Jul, Pain in left leg (ICD-10 - M79.605) [facility] Other 06-20-2023 Evaluation note* Encounter Date Diagnosis Assessment Notes Treatment Notes Treatment Clinical Notes Jul, Left lumbar radiculopathy (ICD-10 - M54.16) Patient has two sessions left of the physical therapy but patient voices no improvement since starting. Lumbar MRI was denied by insurance and the patient is not able to get into the neurosurgeon until end of August. *I did speak with Dr. Buchanan' nurse, they will be moving pt upt to either tomorrow or Sunday. She will be calling pt directly to re-schedule. -Jany Ceron LPN Jul, Left shoulder pain (ICD-10 - M25.512) Left shoulder XR not ed osteopenia. Negative for fracture or dislocation. Narrowing of the glenohumeral joint space is again visualized on the Grashey view. Moderate hypertrophic degenerative change at the glenohumeral and mild at the acromioclavicular joints. Minor sclerosis at the greater tuberosity. No significant soft tissue abnormalities. I did suggest a cortisone injection in the office today and patient is agreeable. 1cc kenalog and 8cc lidocaine injected to the left shouder and patient tolerated well. Patient instructed to do at home exercises the next few days. Jul, Pins and needles sensation (ICD-10 - R20.2) If we can not get th e patient seen sooner with Dr. Buchanan we will discuss trying to order another MRI. [facility] Other 06-01-2023 Evaluation note* Encounter Date Diagnosis Assessment Notes Treatment Notes Treatment Clinical Notes Jul, Left lumbar radiculopathy (ICD-10 - M54.16) Jul, Weakness of left lower extremity (ICD-10 - R29.898) Jul, Osteoarthritis of lumbar spine (ICD-10 - M47.816) [facility] Other 03-16-2023 Evaluation note* Encounter Date Diagnosis Assessment Notes Treatment Notes Treatment Clinical Notes Apr, Bladder instability (ICD-10 - N32.89) [facility]i Other 10-12-2022 Evaluation note* Encounter Date Diagnosis Assessment Notes Treatment Notes Treatment Clinical Notes Nov, Bladder instability (ICD-10 - N32.89) [facility]i Other 10-06-2022 Evaluation note* Encounter Date Diagnosis Assessment Notes Treatment Notes Treatment Clinical Notes Nov, Bladder instability (ICD-10 - N32.89) [facility]i Other 09-09-2022 Evaluation note* Encounter Date Diagnosis Assessment Notes Treatment Notes Treatment Clinical Notes Oct, Unintentional weight loss (ICD-10 - R63.4) Pafient is down a few more pounds since her last visit. Hepatobillary scan was positive for a non-functioning gallbladder. I feel this is causing her weight loss and general surgeon consult is recommended. All lab results have been reviewed with patient. Glucose levels are normal. Inflammatory markers are normal except for MORGAN. Thyroid levels are within normal limits. Hgb level was just slightly low but this should not cause any intereference with proposed surgical intervention for gallbladder. Oct, Vaccine counseling (ICD-10 - Z71.85) Patient educated on which type of Covid booster is recommended and advised to get this in the next month along with her flu vaccine Oct, Bladder instability (ICD-10 - N32.89) Christopher is helping some with her bladder leakage. I am wanting patient to stay on current medication as long as it is helping and I will continue to provide her with samples as long as I have them available. Patient does have some lower extremity edema but this is contributed to having legs down all weekend for her Day celebration Oct, Biliary dyskinesia (ICD-10 - K82.8) Reviewed CT and HIDA scan with patient. HIDA scan revealed the gallbladder does not have an ejection fraction which indicates that gallbladder is not functioning properly. The CT did show sludge in the gallbladder which would be if the gallbladder is not functioning. Lver enzymes are within normal limits. No tumors were seen. Pancreas normal. I feel this is causing patient's symptoms of weight loss and I am recommending to have general surgeon see her for treatment. Patient is hesitant due to her wanting to leave for [place] in one month. I am strongly encouraging patient to proceed with surgical intervention in the near future. Referral will be initiated today, Oct, Hypothyroid (ICD-10 - E03.9) Recent thyroid level results reviewed and are within bing limits. No changes warranted at this time Oct, Positive MORGAN (antinuclear antibody) (ICD-10 - R76.8) MORGAN is positive which I did educate patient on what this means for potential probabilty of lupus, but the ratio is borderline positive and at this time I do not feel this is a problem because of the low ratio. I recommend that we monitor at this point Oct, Allergy, initial encounter (ICD-10 - T78.40XA) Oct, Hypertension (ICD-10 - I10) Ludi Other 08-15-2022 Evaluation note* Encounter Date Diagnosis Assessment Notes Treatment Notes Treatment Clinical Notes Sep, Common bile duct stenosis (ICD-10 - K83.1) Sep, Gallbladder sludge (ICD-10 - K82.8) Ludi Other 07-29-2022 Evaluation note* Encounter Date Diagnosis Assessment Notes Treatment Notes Treatment Clinical Notes Aug, Bladder instability (ICD-10 - N32.89) Per patient the above medication has helped a little bit, I suggest she increase as above an see if this brings more relief, samples provided . Pt is to continue with the above medication and we will continue to monitor. Aug, Hypertension (ICD-10 - I10) The patient states her home blood pressure findings have improved and states she is feeling better since the diuretic portion of her medication was stopped. Pt is to continue with the above medication and we will continue to monitor. Aug, Dermatitis (ICD-10 - L30.9) A genralized diffuse papular rash noted on the bilateral upper extremity. The patient does report the rash and itching improved while she was taking the oral steroid but returned once the steroid was finished. I recommend she consult with dermatology to further evaluate, a referral was initiated. Aug, Hypothyroid (ICD-10 - E03.9) Blood work ordered Pt is to continue with the above medication and we will continue to monitor. Aug, Unintentional weight loss (ICD-10 - R63.4) Colonoscopy last performed in 2015 with polypectomy, the patient states she did recieve a letter last year to repeat but feels she is too old for this. I recommend a CT of the abdomen /pelvis to rule out abnormalites. The patient denies abdominal pain ,, nausea , vomiting diarrhea or constipation. Denies any abnormal vaginal discharge. The patient encourgded to go forward and have the CT performed Ludi Other 06-22-2022 Evaluation note* Encounter Date Diagnosis Assessment Notes Treatment Notes Treatment Clinical Notes Jul, Hyperlipidemia (ICD-10 - E78.5) Reviewed recent lab result with patient. Lipid levels are stable Jul, Hypothyroid (ICD-10 - E03.9) Lab results reviewed with patient. Indicates that she is on too much thyroid supplement and this needs to be adjusted to 100mcg daily. This may also help with her lack of energy. She has also lost some weight after her hip replacement. Educated patient on the process of the thyroid function. She agreed to treatment Jul, Bladder instability (ICD-10 - N32.89) Patient did not find oxybutynin affective. Patient is interested in trying a new procedure that is being offered by Dr. Granados that assists with urinary incontinence and instabiity. Patient has also been offered Myrbetriq to help with bladder control. Samples of this Rx has been given to patient to try at this time and will follow up in 4 weeks Jul, Hypertension (ICD-10 - I10) Blood pressure is on the low side today. Due to the weight loss her blood pressure medication needs to be adjusted to plain Valsartan 80 mg daily. Review of her blood pressure reading and we will continue to monitor. Jul, Allergy, initial encounter (ICD-10 - T78.40XA) Jul, Itching (ICD-10 - L29.9) Patient reports itching of her skin, She does have some spots that are irritated at this time due to the excessive itching. Betamethasone diproprionate will be ordered at this time to try. Also,prednisone routine will be tried. Jul, Status post hip replacement, unspecified laterality (ICD-10 - Z96.649) Patient has had the right hip replaced in [place] not long ago, She is doing well. Will follow up with ortho Jul, Hx of phlebitis (ICD-10 - Z86.72) Due to patient having a hx of phlebitis, she was started on Eliquis s/p her hip replacement. She was on it for 3 months and that is now been stopped Ludi Other 09-08-2016 History general Narrative - Reported* Type Description Date Medical History colonoscopy 2010,10/21/15 Medical History pneumonoccal vaccine 10/2010 Medical History shingles vaccine 01/2011 Medical History 11/16/11 DEXA Scan [place] Medical History 06/19/2014 Mammogram Medical History 08/2014 Pap/Pelvic with Dr. Jami nichols Medical History [facility] 10/2014 Medical History 10/21/15 colonsocopy- hyperplastic rectal polyp, diveritculosis and hemorrhoids Medical History [facility] 10/2015 Medical History 09/2016 Mammogram Medical History 10/2017 Mammogram Medical History 05/2017, 10/2017 Shingrix Medical History Left cataract surgery 09/2018 Medical History 09/23/2020 DEXA scan Surgical History Neck Surgical History Total left hip repla cement ([facility] in [place]) 03/01/11 Surgical History bilateral cataract surgery Surgical History Total right hip replacement Dr. Clement 04/2021 Hospitalization History See Above Ludi Other [id number] History general Narrative - Reported* Type Description Date Medical History colonoscopy 2010,10/21/15 Medical History pneumonoccal vaccine 10/2010 Medical History shingles vaccine 01/2011 Medical History 11/16/11 DEXA Scan [place] Medical History 06/19/2014 Mammogram Medical History 08/2014 Pap/Pelvic with Dr. Jami nichols Medical History [facility] 10/2014 Medical History 10/21/15 colonsocopy- hyperplastic rectal polyp, diveritculosis and hemorrhoids Medical History [facility] 10/2015 Medical History 09/2016 Mammogram Medical History 10/2017 Mammogram Medical History 05/2017, 10/2017 Shingrix Medical History Left cataract surgery 09/2018 Medical History 09/23/2020 DEXA scan Medical History osteoporosis Medical History thyroid disease Surgical History Neck Surgical History Total left hip repla cement ([facility] in [place]) 03/01/11 Surgical History bilateral cataract surgery Surgical History Total right hip replacement Dr. Clement 04/2021 Hospitalization History See Above Ludi Other evaluation noteNo assessment information available [facility] Work Phone: evaluation noteNo InformationNort Février 46 Other evaluation note* Diagnosis Onset Date Resolution Status HTN (hypertension) acute Lumbar disc disease acute Wellness examination acute [facility] Work Phone: Evaluation note* Diagnosis Onset Date Resolution Status HTN (hypertension) acute Lumbar disc disease acute Wellness examination acute Arthritis of lumbosacral spine acute Lumbar radiculopathy acute Sacroiliitis acute [facility] Work Phone: Evaluation note* Diagnosis Onset Date Resolution Status HTN (hypertension) acute Lumbar disc disease acute Wellness examination acute Arthritis of lumbosacral spine acute Lumbar radiculopathy acute Sacroiliitis acute Arthritis of lumbosacral spine acute Lumbar radiculopathy acute Other chronic pain acute Sacroiliitis acute [facility] Work Phone: Evaluation note* Diagnosis Onset Date Resolution Status HTN (hypertension) acute Lumbar disc disease acute Wellness examination acute Arthritis of lumbosacral spine acute Lumbar radiculopathy acute Sacroiliitis acute Arthritis of lumbosacral spine acute Lumbar radiculopathy acute Other chronic pain acute Sacroiliitis acute Arthritis of lumbosacral spine acute Lumbar radiculopathy acute Other chronic pain acute Sacroiliitis acute [facility] Work Phone: Evaluation note* Diagnosis Onset Date Resolution Status Admit Date Arthritis of lumbosacral spine acute June 24, 2024 11:16am Lumbar radiculopathy acute June 24, 2024 11:16am Other chronic pain acute June 242024 11:16am Sacroiliitis acute June 24 11:16am [facility] Work Phone: Evaluation note* Diagnosis Well woman exam with routine gynecological exam- Primary Routine gynecological examination Cervical cancer screening Screening for malignant neoplasm of the cervix Other screening mammogram documented in this encounter [facility] Dis[facility] instructionsAmbulatory Orders* Referral to Pain Management Time Frame: 10/05/23, Location: None Selected [facility] Work Phone: Reason for referral (narrative)No reason for referral information availableMiami [facility] Work Phone: Summary Purpose Family History Relationship Condition Age at Onset Recorded Date/T justina father Heart disease Unknown Unknown grandparent Unknown mother Unknown Malignant neoplasm Unknown mother Malignant neoplasm Unknown Advance Directives Advance Directive Response Recorded Date/ Time Advance Directives No October 9:23am Advance Directive Response Recorded Date/ Time Advance Directives No March 13, 2023 4:42pm Advance Directive Response Recorded Date/ Time Advance Directives No September 03 1:50pm Reason for Referral Reason consult and treat Diagnosis 1 Weakness of left low er extremity (R29.898) Diagnosis 2 Pins and needles sen sation (R20.2) Diagnosis 3 Left lumbar radiculo lyla (M54.16) Referral Organization [facility] [place] Referring Provider First Name Jerome Referring Provider Last Name Simón Referring Provider Specialty Family Prac joy Referred Provider Specialty Vascular Randi kaitlynn Referral Priority Routine Reason Consult and treatmen t per Neurosurgeon. Please call the patient with appointment date and time. Patient is currently in physical therapy Diagnosis 1 Left lumbar radiculo lyla (M54.16) Diagnosis 2 Osteoarthritis of shana mbar spine (M47.816) Diagnosis 3 Weakness of left low er extremity (R29.898) [facility] [employer] [place] Referring Provider First Name Jerome Referring Provider Last Name Simón Referring Provider Specialty Family Prac joy Referred Organization [facility] urosurgery Referred Provider Dori Buchanan Referred Address [address] ,[place], [place],[address] Referred Provider Specialty Neurological Surgery Referral Priority Routine Reason 10/24/21 @ 3:30pm Patient is needing surgical consult MAEVE for non-functioning gallbladder that is causing weight loss. Patient wishes to see either Dr. Boswell or Dr. Cortez Diagnosis 1 Unintentional weight loss (R63.4) Diagnosis 2 Biliary dyskinesia ( K82.8) Referral Organization [facility] [employer] [place] Referring Provider First Name Jerome Referring Provider Last Name Simón Referring Provider Specialty [facility] ojy Referred Organization [facility] Referred Provider Joaquin Cortez Referred Address ,[place], [place],[address] Referred Provider Specialty Surgery Referral Priority Routine Referral Appointment Date 2021-10-24 General Notes PiotralexLaura 10/21 11:40:37 AM >Patient has been scheduled to see Dr. Cortez this coming Sunday10/24/2021 with a 3:15 PM arrival time. Patient is aware of this appt date, time, location and contact information. Referral has been sent with attachments Reason consult and laurie at Diagnosis 1 Dermatitis (L30.9) Referral Organization [facility] [employer] [place] Referring Provider First Name Jerome Referring Provider Last Name Simón Referring Provider Specialty Family Prac joy Referred Organization [facility] Referred Provider Dinesh Obando Referred Address ,[place], [place],[address] Referred Provider Specialty Dermatology Referral Priority Routine General Notes Fore, Ro M 022 01:23:33 PM >Received today and waiting for office notes to be locked before sending referral Chief Complaint and Reason for Visit Chief Complaint R73.9 E78.5 D64.9 E0 3.9 unintentional weight loss K83.1 K82.8 Chief Complaint left leg pain M25.512 MEDICARE/left lumbar [id number] Chief Complaint left leg pain M25.512 MEDICARE/left lumbar [id number] MEDICARE/left shoulder pain Chief Complaint M25.512 MEDICARE/left lumbar [id number] MEDICARE/left shoulder pain Chief Complaint M25.512 MEDICARE/left lumbar [id number] MEDICARE/left shoulder pain i83.813 Chief Complaint MEDICARE/left should er pain Hyperlipidemia i83.813 i83.812 s/p varithena Chief Complaint E03.9;E78.5;R73.9 MEDICARE WELLNESS -REVIEW LABS-sub Reason for Visit HTN (hypertension) Lumbar disc disease Wellness examination Chief Complaint E03.9;E78.5;R73.9 MEDICARE WELLNESS -REVIEW LABS-sub REFF BY DR. JEROME GR Reason for Visit HTN (hypertension) Lumbar disc disease Wellness examination Chief Complaint E03.9;E78.5;R73.9 MEDICARE WELLNESS -REVIEW LABS-sub REFF BY DR. JEROME GR left L4 and L5 transforaminal epidural steroid inj Reason for Visit HTN (hypertension) Lumbar disc disease Wellness examination Arthritis of lumbosacral spine Lumbar radiculopathy Sacroiliitis Chief Complaint E03.9;E78.5;R73.9 MEDICARE WELLNESS -REVIEW LABS-sub REFF BY DR. JEROME GR left L4 and L5 transforaminal epidural steroid inj Amb Documentation f/u after left L4,5 LTR Reason for Visit HTN (hypertension) Lumbar disc disease Wellness examination Arthritis of lumbosacral spine Lumbar radiculopathy Sacroiliitis Arthritis of lumbosacral spine Lumbar radiculopathy Other chronic pain Sacroiliitis Chief Complaint E03.9;E78.5;R73.9 MEDICARE WELLNESS -REVIEW LABS-sub REFF BY DR. JEROME GR left L4 and L5 transforaminal epidural steroid inj Amb Documentation f/u after left L4,5 LTR caudal epidural steroid inj Reason for Visit HTN (hypertension) Lumbar disc disease Wellness examination Arthritis of lumbosacral spine Lumbar radiculopathy Sacroiliitis Arthritis of lumbosacral spine Lumbar radiculopathy Other chronic pain Sacroiliitis Chief Complaint E03.9;E78.5;R73.9 MEDICARE WELLNESS -REVIEW LABS-sub REFF BY DR. JEROME KUNS left L4 and L5 transforaminal epidural steroid inj Amb Documentation f/u after left L4,5 LTR caudal epidural steroid inj f/u after caudal epidural Reason for Visit HTN (hypertension) Lumbar disc disease Wellness examination Arthritis of lumbosacral spine Lumbar radiculopathy Sacroiliitis Arthritis of lumbosacral spine Lumbar radiculopathy Other chronic pain Sacroiliitis Arthritis of lumbosacral spine Lumbar radiculopathy Other chronic pain Sacroiliitis Chief Complaint Admit Date low back pain radiating left lower extre mity June 24, 2024 11:16am Reason for Visit Admit Date Arthritis of lumbosacral spine June 24, 2024 11:16am Lumbar radiculopathy June 24, 2024 11:1 6am Other chronic pain June 24, 2024 11:16 am Sacroiliitis June 24, 2024 11:16 am Chief Complaint Admit Date low back pain radiating left lower extre mity June 24, 2024 11:16am caudal epidural steroid injection July 032024 10:37am Chief Complaint Admit Date low back pain radiating left lower extre mity June 24, 2024 11:16am caudal epidural steroid injection July 032024 10:37am f/u after caudal epidural steroid inject ion July 15, 2024 11:23am Reason for Visit Admit Date Arthritis of lumbosacral spine June 24, 2024 11:16am Lumbar radiculopathy June 24, 2024 11:1 6am Other chronic pain June 24, 2024 11:16 am Sacroiliitis June 24, 2024 11:16 am Arthritis of lumbosacral spine July 15, 2024 11:23am Lumbar radiculopathy July 15, 2024 11:2 3am Other chronic pain July 15, 2024 11:23 am Sacroiliitis July 15, 2024 11:23 am Chief Complaint Admit Date low back pain radiating left lower extre mity June 24, 2024 11:16am caudal epidural steroid injection July 032024 10:37am f/u after caudal epidural steroid inject ion July 15, 2024 11:23am left L4-5 and L5-S1 transforaminal epidu ral July 29, 2024 1:02pm f/u after left L4,5 LTR August 06, 2024 1:20pm Reason for Visit Admit Date Arthritis of lumbosacral spine June 24, 2024 11:16am Lumbar radiculopathy June 24, 2024 11:1 6am Other chronic pain June 24, 2024 11:16 am Sacroiliitis June 24, 2024 11:16 am Arthritis of lumbosacral spine July 15, 2024 11:23am Lumbar radiculopathy July 15, 2024 11:2 3am Other chronic pain July 15, 2024 11:23 am Sacroiliitis July 15, 2024 11:23 am Arthritis of lumbosacral spine July 1:20pm Lumbar radiculopathy August 06, 2024 1:2 0pm Other chronic pain August 06, 2024 1:20 pm Sacroiliitis August 06, 2024 1:20 pm Chief Complaint Admit Date low back pain radiating left lower extre mity June 24, 2024 11:16am caudal epidural steroid injection July 032024 10:37am f/u after caudal epidural steroid inject ion July 15, 2024 11:23am left L4-5 and L5-S1 transforaminal epidu ral July 29, 2024 1:02pm f/u after left L4,5 LTR August 06, 2024 1:20pm BILATERAL SACROILIAC JOINT INJ August 12:53pm Chief Complaint Admit Date low back pain radiating left lower extre mity June 24, 2024 11:16am caudal epidural steroid injection July 032024 10:37am f/u after caudal epidural steroid inject ion July 15, 2024 11:23am left L4-5 and L5-S1 transforaminal epidu ral July 29, 2024 1:02pm f/u after left L4,5 LTR August 06, 2024 1:20pm BILATERAL SACROILIAC JOINT INJ August 12:53pm FOLLOW UP AFTER TOM SI September 03, 2024 1 :03pm Reason for Visit Admit Date Arthritis of lumbosacral spine June 24, 2024 11:16am Lumbar radiculopathy June 24, 2024 11:1 6am Other chronic pain June 24, 2024 11:16 am Sacroiliitis June 24, 2024 11:16 am Arthritis of lumbosacral spine July 15, 2024 11:23am Lumbar radiculopathy July 15, 2024 11:2 3am Other chronic pain July 15, 2024 11:23 am Sacroiliitis July 15, 2024 11:23 am Arthritis of lumbosacral spine July 1:20pm Lumbar radiculopathy August 06, 2024 1:2 0pm Other chronic pain August 06, 2024 1:20 pm Sacroiliitis August 06, 2024 1:20 pm Arthritis of lumbosacral spine August 1:03pm Lumbar radiculopathy September 03, 2024 1:0 3pm Other chronic pain September 03, 2024 1:03 pm Sacroiliitis September 03, 2024 1:03 pm Chief Complaint Admit Date low back pain radiating left lower extre mity June 24, 2024 11:16am caudal epidural steroid injection July 032024 10:37am f/u after caudal epidural steroid inject ion July 15, 2024 11:23am left L4-5 and L5-S1 transforaminal epidu ral July 29, 2024 1:02pm f/u after left L4,5 LTR August 06, 2024 1:20pm BILATERAL SACROILIAC JOINT INJ August 12:53pm FOLLOW UP AFTER TOM SI September 03, 2024 1 :03pm TOM LUMBAR FACET MBB L3,4,5 September 18, 2024 11:02am Chief Complaint Admit Date caudal epidural steroid injection July 032024 10:37am f/u after caudal epidural steroid inject ion July 15, 2024 11:23am left L4-5 and L5-S1 transforaminal epidu ral July 29, 2024 1:02pm f/u after left L4,5 LTR August 06, 2024 1:20pm BILATERAL SACROILIAC JOINT INJ August 12:53pm FOLLOW UP AFTER TOM SI September 03, 2024 1 :03pm TOM LUMBAR FACET MBB L3,4,5 September 18, 2024 11:02am FOLLOW UP AFTER TOM LUMBAR MBB October 012024 1:05pm Reason for Visit Admit Date Arthritis of lumbosacral spine July 15, 2024 11:23am Lumbar radiculopathy July 15, 2024 11:2 3am Other chronic pain July 15, 2024 11:23 am Sacroiliitis July 15, 2024 11:23 am Arthritis of lumbosacral spine July 1:20pm Lumbar [...] 05pm Sacroiliitis October 01, 2024 1: 05pm Chief Complaint Admit Date f/u after caudal epidural steroid inject ion July 15, 2024 11:23am left L4-5 and L5-S1 transforaminal epidu ral July 29, 2024 1:02pm f/u after left L4,5 LTR August 06, 2024 1:20pm BILATERAL SACROILIAC JOINT INJ August 12:53pm FOLLOW UP AFTER TOM SI September 03, 2024 1 :03pm TOM LUMBAR FACET MBB L3,4,5 September 18, 2024 11:02am FOLLOW UP AFTER TOM LUMBAR MBB October 012024 1:05pm e78.5 r73.9 October 06, 2024 8: 15am Chief Complaint Admit Date f/u after caudal epidural steroid inject ion July 15, 2024 11:23am left L4-5 and L5-S1 transforaminal epidu ral July 29, 2024 1:02pm f/u after left L4,5 LTR August 06, 2024 1:20pm BILATERAL SACROILIAC JOINT INJ August 12:53pm FOLLOW UP AFTER TOM SI September 03, 2024 1 :03pm TOM LUMBAR FACET MBB L3,4,5 September 18, 2024 11:02am FOLLOW UP AFTER TOM LUMBAR MBB October 012024 1:05pm e78.5 r73.9 October 06, 2024 8: 15am bilateral L3,4,5 lumbar MBB October 09, 2024 9:59am Chief Complaint Admit Date left L4-5 and L5-S1 transforaminal epidu ral July 29, 2024 1:02pm f/u after left L4,5 LTR August 06, 2024 1:20pm BILATERAL SACROILIAC JOINT INJ August 12:53pm FOLLOW UP AFTER TOM SI September 03, 2024 1 :03pm TOM LUMBAR FACET MBB L3,4,5 September 18, 2024 11:02am FOLLOW UP AFTER TOM LUMBAR MBB October 012024 1:05pm e78.5 r73.9 October 06, 2024 8: 15am bilateral L3,4,5 lumbar MBB October 09, 2024 9:59am f/u after tom lumbar MBB October 16, 2024 4:08pm Reason for Visit Admit Date Arthritis of [...] 2024 4:08pm Sacroiliitis October 16, 2024 4:08pm Chief Complaint Admit Date left L4-5 and L5-S1 transforaminal epidu ral July 29, 2024 1:02pm f/u after left L4,5 LTR August 06, 2024 1:20pm BILATERAL SACROILIAC JOINT INJ August 12:53pm FOLLOW UP AFTER TOM SI September 03, 2024 1 :03pm TOM LUMBAR FACET MBB L3,4,5 September 18, 2024 11:02am FOLLOW UP AFTER TOM LUMBAR MBB October 012024 1:05pm e78.5 r73.9 October 06, 2024 8: 15am bilateral L3,4,5 lumbar MBB October 09, 2024 9:59am f/u after tom lumbar MBB October 16, 2024 4:08pm medicare wellness October 20, 2024 12:41pm Reason for Visit Admit Date Arthritis of [...] mammogram for breast cancer Se pt2024 12:41pm Chief Complaint Admit Date left L4-5 and L5-S1 transforaminal epidu ral July 29, 2024 1:02pm f/u after left L4,5 LTR August 06, 2024 1:20pm BILATERAL SACROILIAC JOINT INJ August 12:53pm FOLLOW UP AFTER TOM SI September 03, 2024 1 :03pm TOM LUMBAR FACET MBB L3,4,5 September 18, 2024 11:02am FOLLOW UP AFTER TOM LUMBAR MBB October 012024 1:05pm e78.5 r73.9 October 06, 2024 8: 15am bilateral L3,4,5 lumbar MBB October 09, 2024 9:59am f/u after tom lumbar MBB October 16, 2024 4:08pm medicare wellness October 20, 2024 12:41pm Bilat lumbar facet RFA L3,L4,L5 Septembe r 2024 1:05pm Additional Source Comments Source Comments (unrecognize d section and content) In the event this informatio n is protected by the Federal Confidentiality of Alcohol and Drug Abuse Patient Records regulations: The Federal rules restrict any use of the information to criminally investigate or prosecute any alcohol or drug abuse patient.[facility] Reason for Visit (unrecogniz ed section and content) Reason Comments Other INFORMATION SOURCE (unrecogn ized section and content) DATE CREATED AUTHOR 12/02/2020 [facility] DATE CREATED AUTHOR AUTHOR'S ORGANIZ ATION 09/30/2024 [facility] EPIC DATE CREATED AUTHOR AUTHOR'S ORGANIZ ATION 10/20/2024 [facility] Care Teams (unrecognized sec tion and content) Team Status: Active Member Role Status Dates Jerome Gr DO Primary Care Provider Active Team Status: Active Member Role Status Dates Jerome Gr DO Primary Care Provider Active Sta rt: July 29, 2024 Joseph Sharma MD Attending Provider Active Sta rt: July 29, 2024 Team Status: Inactive Member Role Status Dates Jerome Gr DO Primary Care Provider Active Sta rt: July 29, 2024 End: July 29, 2024 Joseph Sharma MD Attending Provider Active Sta rt: July 29, 2024 End: July 29, 2024 Team Status: Inactive Member Role Status Kun Gr DO Primary Care Provider Active Sta rt: August 06, 2024 End: August 06, 2024 Joseph Sharma MD Attending Provider Active Sta rt: August 06, 2024 End: August 06, 2024 Team Status: Active Member Role Status Kun Gr DO Primary Care Provider Active Sta rt: August 26, 2024 Joseph Sharma MD Attending Provider Active Sta rt: August 26, 2024 Team Status: Inactive Member Role Status Kun Gr DO Primary Care Provider Active Sta rt: August 26, 2024 End: August 26, 2024 Joseph Sharma MD Attending Provider Active Sta rt: August 26, 2024 End: August 26, 2024 Team Status: Inactive Member Role Status Kun Gr DO Primary Care Provider Active Sta rt: September 03, 2024 End: September 03, 2024 Joseph Sharma MD Attending Provider Active Sta rt: September 03, 2024 End: September 03, 2024 Team Status: Active Member Role Status Kun Gr DO Primary Care Provider Active Sta rt: September 18, 2024 Joseph Sharma MD Attending Provider Active Sta rt: September 18, 2024 Team Status: Inactive Member Role Status Kun Gr DO Primary Care Provider Active Sta rt: September 18, 2024 End: September 18, 2024 Joseph Sharma MD Attending Provider Active Sta rt: September 18, 2024 End: September 18, 2024 Team Status: Inactive Member Role Status Kun Gr DO Primary Care Provider Active Sta rt: October 01, 2024 End: October 01, 2024 Joseph Sharma MD Attending Provider Active Sta rt: October 01, 2024 End: October 01, 2024 Team Status: Inactive Member Role Status Kun Gr DO Primary Care Provider Active Sta rt: October 06, 2024 End: October 06, 2024 Jerome Gr DO Attending Provider Active Start: October 06, 2024 End: October 06, 2024 Team Status: Inactive Member Role Status Kun Gr DO Primary Care Provider Active Sta rt: October 09, 2024 End: October 09, 2024 Joseph Sharma MD Attending Provider Active Sta rt: October 09, 2024 End: October 09, 2024 Team Status: Inactive Member Role Status Kun Gr DO Primary Care Provider Active Sta rt: October 16, 2024 End: October 16, 2024 Joseph Sharma MD Attending Provider Active Sta rt: October 16, 2024 End: October 16, 2024 Team Status: Inactive Member Role Status Kun Gr DO Primary Care Provider, Attending Provi akbar Active Team Status: Inactive Member Role Status Kun Gr DO Primary Care Provider Active Nikole Dunbar , FINANCIAL SALES PROFESSIONAL- Emergency Provider Active Team Status: Inactive Member Role Status Kun Gr DO Primary Care Provider Active Gin Olivares NP-C Attending Provider Active Team Status: Inactive Member Role Status Kun Gr DO Primary Care Provide r, Attending Provider Active Start: October 02, 2023 End: October 02, 2023 Team Status: Inactive Member Role Status Kun Gr DO Primary Care Provide r, Attending Provider Active Start: October 05, 2023 End: October 05, 2023 Team Status: Inactive Member Role Status Kun Gr DO Primary Care Provide r, Referring Provider Active Start: October 25, 2023 End: October 25, 2023 Joseph Sharma MD Attending Provider Active Sta rt: October 25, 2023 End: October 25, 2023 Team Status: Inactive Member Role Status Kun Gr DO Primary Care Provider Active Sta rt: November 01, 2023 End: November 01, 2023 Joseph Sharma MD Attending Provider Active Sta rt: November 01, 2023 End: November 01, 2023 Team Status: Active Member Role Status Kun Gr DO Primary Care Provider Active Sta rt: November 01, 2023 Joseph Sharma MD Attending Provider Active Sta rt: November 01, 2023 Team Status: Active Member Role Status Kun Gr DO Primary Care Provider Active Sta rt: November 06, 2023 RACHAEL Luis Attending Provider Active Start: November 06, 2023 Team Status: Inactive Member Role Status Kun Gr DO Primary Care Provider Active Sta rt: November 12, 2023 End: November 12, 2023 Joseph Sharma MD Attending Provider Active Sta rt: November 12, 2023 End: November 12, 2023 Team Status: Inactive Member Role Status Dates Jerome Gr DO Primary Care Provider Active Sta rt: November 21, 2023 End: November 21, 2023 Joseph Sharma MD Attending Provider Active Sta rt: November 21, 2023 End: November 21, 2023 Team Status: Active Member Role Status Dates Jerome Gr DO Primary Care Provider Active Sta rt: November 21, 2023 Joseph Sharma MD Attending Provider Active Sta rt: November 21, 2023 Team Status: Inactive Member Role Status Dates Jerome Gr DO Primary Care Provider Active Sta rt: November 27, 2023 End: November 27, 2023 Joseph Sharma MD Attending Provider Active Sta rt: November 27, 2023 End: November 27, 2023 Team Status: Inactive Member Role Status Dates Jerome Gr DO Primary Care Provider Active Sta rt: June 24, 2024 End: June 24, 2024 Joseph Sharma MD Attending Provider Active Sta rt: June 24, 2024 End: June 24, 2024 Team Status: Inactive Member Role Status Dates Jerome Gr DO Primary Care Provider Active Sta rt: July 03, 2024 End: July 03, 2024 Joseph Sharma MD Attending Provider Active Sta rt: July 03, 2024 End: July 03, 2024 Team Status: Active Member Role Status Dates Jerome Gr DO Primary Care Provider Active Sta rt: July 03, 2024 Joseph Sharma MD Attending Provider Active Sta rt: July 03, 2024 Team Status: Inactive Member Role Status Dates Jerome Gr DO Primary Care Provider Active Sta rt: July 15, 2024 End: July 15, 2024 Joseph Sharma MD Attending Provider Active Sta rt: July 15, 2024 End: July 15, 2024 Hydro Generation Manager Relationship Specialty Start Date End Date Jerome Gr DO PCP - General 09/28/22 Hydro Generation Manager Relationship Specialty Start Date End Date Jerome Gr DO [phone] (work) PCP - General 09/28/22 Team Status: Inactive Member Role Status Dates Jerome Gr DO Primary Care Provider Active Sta rt: October 20, 2024 End: October 20, 2024 Jerome Gr DO Attending Provider Active Start: October 20, 2024 End: October 20, 2024 Team Status: Inactive Member Role Status Dates Jerome Gr DO Primary Care Provider Active Sta rt: October 23, 2024 End: October 23, 2024 Joseph Sharma MD Attending Provider Active Sta rt: October 23, 2024 End: October 23, 2024 Goals (unrecognized section and content) Goals may be documented in a n alternate section FOR RECORDS PERTAINING TO PATIENTS WHO ARE OR HAVE BEEN ENROLLED IN A CHEMICAL DEPENDENCY/SUBSTANCEABUSE PROGRAM, SOME INFORMATION MAY BE OMITTED. This clinical summary was aggregated from multiple sources. Caution should be exercised in using it in the provision of clinical care. This summary normalizes information from multiple sources, and as a consequence, information in this document may materially change the coding, format and clinical context of patient data. In addition, data may be omitted in some cases. CLINICAL DECISIONS SHOULD BE BASED ON THE PRIMARY CLINICAL RECORDS. [facility] provides no warranty or guarantee of the accuracy or completeness of information in this document.
== END 2024-11-03 11:21 | disposition home or self-care (01) ==
LOC: MAMMO 11:22
PROVIDERS: PCP Family Medicine; Visit Provider Obstetrics & Gynecology
DX: Z12.31 Encounter for screening mammogram for malignant neoplasm of breast (principal); Z80.41 Family history of malignant neoplasm of ovary
CPT/HCPCS: 77067